=== PATIENT | female | born 1960 | race African-American/Black ===

== ENCOUNTER 2023-07-25 09:10 | Outpatient (AMB) | payer MEDICAID, SELFPAY ==
[2023-07-25 09:18] VITALS: BP 144/80; PULSE 59; RESP 12; TEMP 36.4; O2SAT 99; BMI 27.3
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
[2023-07-25 10:09] VITALS: BP 170/90
== END 2023-07-25 10:25 | disposition home or self-care (01) ==
PROVIDERS: Visit Provider Nurse Practitioner Family
DX: E11.9 Type 2 diabetes mellitus without complications (principal)
CPT/HCPCS: 83036; 99204

== ENCOUNTER 2023-07-25 10:26 | Outpatient (REF) | payer MEDICAID, SELFPAY ==
[2023-07-25 14:17] LABS: MANUAL DIFF FLAG NO
[2023-07-25 14:19] LABS: Basophils Percent Auto 0.6 % (0-2); Eosinophils Absolute Auto 0.1 X10*3/uL (0.0-0.4); Eosinophils Percent Auto 2.9 % (0-4); Hemoglobin 12.4 g/dl (12.0-16.0); Imm Gran Abs Auto 0.01 X10*3/uL (0.00-0.03); Imm Gran Pct Auto 0.2 % (0.0-0.4); Lymphocytes Percent Auto 41.9 % (20-40); Mean Corpuscular Volume 96.9 fL (80.0-98.0); Mean Platelet Volume 10.7 fL (9.4-12.3); Monocytes Absolute Auto 0.5 X10*3/uL (0.1-1.2); Monocytes Percent Auto 10.4 % (2-11); Neutrophils Absolute Auto 2.1 x10*3/uL (2.0-8.3); Platelet Count 258 X10*3/uL (160-400); Red Blood Count 4.13 X10*6/uL (4.20-5.50); Red Cell Distribution Width 12.7 % (11.0-16.0); White Blood Count 4.8 X10*3/uL (4.8-10.8)
[2023-07-25 14:37] LABS: Appearance Urine Clear; Color Urine Yellow; Glucose Urine UA Negative (Negative); Leukocyte Esterase Urine Trace (Negative); Nitrite Urine Negative (Negative); Specific Gravity - Urine 1.015 (1.005-1.025); UMIC TRIGGER UACC YES; Urine Blood Negative (Negative); Urine Ketones Negative (Negative); Urine Protein Negative (Neg-Trace)
[2023-07-25 14:40] LABS: Bacteria Urine None Seen (None Seen); Hyaline Casts Urine 0-2 /LPF (0-2); RBC Urine 0-2 /HPF (0-2); Squamous Epithelial Cell Urine 0-2 /HPF (0-2); WBC Urine 0-5 /HPF (0-5)
[2023-07-25 14:44] LABS: Alanine Aminotransferase 13 U/L (0-31); Albumin Level 4.3 g/dL (3.5-5.0); Alkaline Phosphatase 67 U/L (39-117); Anion Gap 14 (12-20); Aspartate Amino Transferase 18 U/L (5-31); Bilirubin Total 0.5 mg/dL (0.0-1.0); Blood Urea Nitrogen 8 mg/dL (9-16); Calcium 9.7 mg/dL (8.4-10.2); Carbon Dioxide 25 mmol/L (22-29); Chloride 103 mmol/L (96-108); Cholesterol 207 mg/dL (<200); Estimated Glomerular Filt Rate > 60; Glucose Fasting 103 mg/dL (60-99); HDL Cholesterol 50 mg/dL (>40); LDL Cholesterol Calculated 140 mg/dL (<100); Potassium 4.1 mmol/L (3.3-5.1); Sodium 138 mmol/L (135-145); Total Protein 7.7 g/dL (6.5-8.0); Triglycerides 85 mg/dL (<150)
[2023-07-25 15:03] LABS: TSH reflex Free T4 1.52 uIU/mL (0.32-4.0)
== END 2023-07-25 10:27 | disposition home or self-care (01) ==
LOC: HO.WFDLDS 10:26
PROVIDERS: Visit Provider Nurse Practitioner Family
DX: Z00.00 Encounter for general adult medical examination without abnormal findings (principal)
CPT/HCPCS: 36415; 80053; 80061; 81001; 84443; 85025

== ENCOUNTER 2023-08-08 09:47 | Outpatient (AMB) | payer MEDICAID, SELFPAY ==
[2023-08-08 09:50] VITALS: BP 136/78; PULSE 77; TEMP 37; O2SAT 97; BMI 27.3
--- NOTE | 2023-08-08 09:50 | MHC.PC.OV ---
Vital Signs 08/08/23 09:50 08/08/23 10:31 Height 5 ft 3 in Weight 154 lb BMI 27.3 BP 136/78 128/82 Blood Pressure Location Lt brachial Lt brachial Position Sitting Respiration 18 Pulse 77 Pulse Source Pulse Oximeter Temp 98.6 F Temp Source Oral Pulse Oximetry (%) 97 Oxygen Delivery Method Room Air Intake Visit Reasons: f/u HTN Intake Note: Patient is here to follow up on hypertension. Allergies No Known Allergies Allergy (Verified 08/08/23 10:29) Medication List - Last Reconciled 08/08/23 by Kelsie Acuna CNP atorvastatin 20 mg PO BEDTIME 30 days blood sugar diagnostic (Parallax EnterprisesStyle Test strips) As directed blood-glucose meter (Parallax EnterprisesStyle [place] Lite kit) As directed flash glucose scanning reader (Sonavationyle Loretta 2 [place]) As directed lancets (Parallax EnterprisesStyle Lancets) As directed lisinopril 10 mg PO DAILY 30 days metformin ER 750 mg PO ONCE 90 days Tobacco use date assessed: 07/25/23 Fall risk assessment: No Falls in past year Last assessed Fall Risk: 08/08/23 HPI HPI Comments History of Present Illness Details 63-year-old Creole speaking female, accompanied by her son, presents for hypertension follow-up. She established care on 07/25/2023. Her resting blood pressure was 170/90. Lisinopril was prescribed. Her A1c was 6.0. X-rays were ordered for reported chronic right-sided rib and hip pain. Routine labs were also ordered. She was advised to take lisinopril, metformin, and atorvastatin as prescribed. She has history of hyperlipidemia, diabetes, and hypertension. Atorvastatin was prescribed once her labs resulted. She has not gotten the x-rays done. She admits to taking her medications as prescribed with no adverse effects. She offers no complaints and denies acute symptoms. COUNTS INCLUDE 234 BEDS AT THE [facility] Medical History (Updated 07/25/23 @ 15:29 by Kelsie Acuna CNP) Diabetes 1.5, managed as type 2 Hypertension Diabetic coma Cataracts, bilateral Surgical History (Updated 07/25/23 @ 09:36 by Rosario Flores CMA) History of cataract surgery Family History (Updated 07/25/23 @ 09:34 by Rosario Flores CMA) Other No pertinent family history Social History (Updated 07/25/23 @ 09:37 by LUCÍA Rizvi Housing: House Alcohol intake: never Patient Tobacco Use Status: Never used Tobacco e-Cigarette/Vaping Use: Never Used service: No Current occupational status: retired Cognitive needs: No Hearing needs: No Vision needs: Yes Questionnaire Thrive Questionnaire Date Thrive assessed: 07/25/23 JASWINDER-7 AMB Questionnaire JASWINDER-7 Date JASWINDER - 7 assessed: 07/25/23 Source: Developed by Drs. Weston Goncalves, Frida Edmondson, Rajan Tolliver and colleagues, with an educational cassandra from [employer]. Review of Systems Const Details: Const Denies chills, Denies fatigue, Denies fever(s), Denies headache(s) and Denies weakness ENT Denies dizziness and Denies headache(s) Card Denies chest pain, Denies lightheadedness, Denies dyspnea and Denies other (Palpitations) Resp Denies cough, Denies dyspnea, Denies wheezing and Denies other ( shortness of breath) GI Denies abdominal pain, Denies melena, Denies hematochezia, Denies change in bowel habits, Denies dyspepsia and Denies nausea Denies hematuria and Denies dysuria Musc Denies abnormal gait, Denies myalgias, Denies arthralgias, Denies numbness and Denies tingling Skin/Breast Denies rash, Denies unusual bruising and Denies wounds Neuro Denies abnormal gait, Denies dizziness, Denies headache(s), Denies memory loss, Denies numbness, Denies Sensory deficit (Neuro), Denies tingling and Denies weakness Psych Denies anxiety, Denies depression, Denies memory loss Endo Denies cold intolerance, Denies fatigue, Denies heat intolerance, Denies polydipsia and Denies polyuria Aller/Immun Denies wheezing Physical exam (Primary Care) Vital Signs: Last Vital Signs Temp 98.6 F 08/08/23 09:50 Pulse 77 08/08/23 09:50 BP 136/78 08/08/23 09:50 Pulse Ox 97 08/08/23 09:50 Oxygen Delivery Method Room Air 08/08/23 09:50 BMI result Body Mass Index 27.3 Tobacco/Smoking Status: Tobacco use Status Tobacco use date assessed 07/25/23 08/08/23 09:54 Patient Tobacco Use Status Never used Tobacco 08/08/23 09:54 e-Cigarette/Vaping Use Never Used 08/08/23 09:54 Thrive Assessment: Date of Thrive Assessment Date Thrive assessed 07/25/23 08/08/23 09:54 Const Other: General: no acute distress and well developed Nutritional Appearance: well nourished Orientation/consciousness: patient oriented x3 HENMT Head: Yes normocephalic and Yes atraumatic Eyes General: appearance normal, both eyes and all related structures Pupils: Equal, round and reactive pupils present EOM: EOMs intact bilaterally Resp Effort & Inspection: normal respiratory effort Auscultation: clear to auscultation bilaterally Cardio Rate: regular rate Rhythm: regular rhythm Heart sounds: S1 normal heart sound present, S2 normal heart sound present, no gallops, no murmurs and no rubs GI Palpation (GI): No Abdominal aortic bruit present, Soft to palpation, nontender, No hepatosplenomegaly present and No Rebound tenderness present Auscultation: normal bowel sounds General: Yes no CVA tenderness Back/Spine/Pelvis Back: no CVA tenderness Cervical Spine: cervical ROM normal and No Cervical spine tenderness Thoracic/Lumbar Spine: thoraco-lumbar ROM normal, No pain with thoraco-lumbar ROM, No thoracic spinal tenderness and No lumbar spinal tenderness Extrem General: Yes normal to inspection, No edema and No calf tenderness Skin General: warm and dry. Normal skin color. Normal skin turgor Lesions: no lesions Rashes: no rashes Trauma: no lacerations or abrasions Wounds: no wounds Nails: normal Neuro General: patient oriented x3, gait normal and no focal neuro deficit Cranial nerves: Yes Equal, round and reactive pupils present Cognition (Neuro): normal cognition Gait exam (Neuro): Normal gait present Sensory Exam: No Sensory deficit (Neuro) Psych Appearance: grossly normal Affect: normal affect Attitude: cooperative Thought process: Normal thought process present Assessment and Plan Assessment & Plan (1) Hypertension: Code(s): I10 - Essential (primary) hypertension Qualifiers: Hypertension type: primary hypertension Qualified Code(s): I10 - Essential (primary) hypertension Plan: Resting blood pressure is 128/82, slightly above goal of less than 130/80 Continue with current treatment regimen Low-sodium diet encouraged Follow-up in 1 month or return sooner with symptoms or concerns Verbalized understanding and agreed with treatment plan. Interpretation by the patient's son per patient's preference. (2) Hypercholesterolemia: Code(s): E78.00 - Pure hypercholesterolemia, unspecified Plan: Recent lab results reviewed with the patient. Unremarkable findings except for slightly elevated total cholesterol and LDL. She was prescribed atorvastatin which she admits to taking as prescribed. Encouraged to continue to take medication as prescribed. Advised to perform repeat lipid level blood work before next visit. Follow-up in 1 month for complete physical exam. Verbalized understanding and agreed with treatment plan. Coding Level of Care Code Est Pt Level 3 (05398) Diagnoses Primary hypertension I10 Hypertension type: primary hypertension Hypercholesterolemia E78.00
[2023-08-08 10:31] VITALS: BP 128/82; RESP 18
== END 2023-08-08 10:38 | disposition home or self-care (01) ==
PROVIDERS: PCP Nurse Practitioner Family; Visit Provider Nurse Practitioner Family
DX: I10 Essential (primary) hypertension (principal); E78.00 Pure hypercholesterolemia, unspecified
CPT/HCPCS: 99213

== ENCOUNTER 2023-09-12 08:16 | Outpatient (AMB) | payer MEDICAID, SELFPAY ==
--- NOTE | 2023-09-12 08:27 | MHC.PC.OV ---
Vital Signs 09/12/23 08:28 09/12/23 09:03 Height 5 ft 3 in Weight 153 lb BMI 27.1 BP 164/90 H 170/90 H Blood Pressure Location Rt brachial Lt brachial Position Sitting Sitting Respiration 13 Pulse 86 Pulse Source Pulse Oximeter Pulse Oximetry (%) 98 Oxygen Delivery Method Room Air Intake Visit Reasons: 1 mos CPE, hypercholesterolemia Intake Note: Patient is here today for her CPE and a follow up for her hypercholesterolemia. Patient is accompanied by her son who reports patient needs a refill on her lancets and strips. Patient reports she didn't take her medications this morning. Patient's last A1C was 6.0 on 07/25/23. 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 Accompanied by: Son Allergies No Known Allergies Allergy (Verified 09/12/23 08:44) Medication List - Last Reconciled 09/12/23 by Kelsie Acuna CNP atorvastatin 20 mg PO BEDTIME 30 days blood sugar diagnostic (FreeStyle Test strips) As directed blood-glucose meter (FreeStyle [place] Lite kit) As directed lancets (FreeStyle Lancets) As directed lisinopril 10 mg PO DAILY 30 days metformin ER 750 mg PO ONCE 90 days Tobacco use date assessed: 07/25/23 Fall risk assessment: No Falls in past year Last assessed Fall Risk: 09/12/23 HPI HPI Comments History of Present Illness Details 63-year-old Creole speaking female, accompanied by her son, presents for an extended physical exam, hypertension, and hyperlipidemia follow-up She admits to taking her medications as prescribed. She has not taking her medications, including lisinopril today She has not gotten her repeat lipid panel blood work done She notes that she checks her BP once weekly, 140/80 yesterday, she does not recall previous readings She offers no complaints and denies acute symptoms at this time She notes that her last eye exam was 2years ago: cataract of both eyes. She has an eye exam scheduled with Dr. Cardozo in 11/2024; her son is working on getting a sooner appointment and will notify PCP if not possible She notes that her last mammogram 10 normal: normal She notes she has never had a colonoscopy done She is unsure of whether she has had a pap smear test She has never had a bone density scan She states that she was vaccinated for shingles but not for pneumonia She declines the flu vaccine today [facility] Medical History (Updated 09/12/23 @ 09:25 by Kelsie Acuna CNP) Diabetes 1.5, managed as type 2 Hypertension Diabetic coma Cataracts, bilateral Surgical History (Updated 07/25/23 @ 09:36 by Rosario Flores CMA) History of cataract surgery Family History (Updated 07/25/23 @ 09:34 by Rosario Flores CMA) Other No pertinent family history (Updated 07/25/23 @ 09:37 by Rosario Flores CMA) Housing: House Alcohol intake: never Patient Tobacco Use Status: Never used Tobacco e-Cigarette/Vaping Use: Never Used service: No Current occupational status: retired Cognitive needs: No Hearing needs: No Vision needs: Yes Questionnaire Thrive Questionnaire Date Thrive assessed: 07/25/23 JASWINDER-7 AMB Questionnaire JASWINDER-7 Date JASWINDER - 7 assessed: 07/25/23 Source: Developed by Drs. Weston Goncalves, Frida Edmondson, Rajan Tolliver and colleagues, with an educational cassandra from [employer]. Review of Systems Const Details: Denies chills, Denies fatigue, Denies fever(s), Denies headache(s) and Denies weakness HEENT Denies change in vision, Denies dizziness, Denies headache(s), Denies hearing loss, Denies nasal congestion, Denies sinus pain, Denies sinus pressure and Denies sore throat Card Denies chest pain, Denies lightheadedness, Denies dyspnea and Denies other (palpitations) Resp Denies cough, Denies dyspnea and Denies wheezing GI Denies abdominal pain, Denies melena, Denies hematochezia, Denies change in bowel habits, Denies dyspepsia and Denies nausea Denies hematuria and Denies dysuria Musc Denies abnormal gait, Denies myalgias, Denies arthralgias, Denies numbness and Denies tingling Skin/Breast Denies rash, Denies unusual bruising and Denies wounds Neuro Denies abnormal gait, Denies dizziness, Denies headache(s), Denies memory loss, Denies numbness, Denies Sensory deficit (Neuro), Denies tingling and Denies weakness Psych Denies anxiety, Denies depression and Denies memory loss Endo Denies cold intolerance, Denies fatigue, Denies heat intolerance, Denies polydipsia and Denies polyuria Jose M/Lymph Denies easy bleeding and Denies easy bruising Aller/Immun Denies wheezing Physical exam (Primary Care) Vital Signs: Last Vital Signs Pulse 86 09/12/23 08:28 Resp 13 09/12/23 08:28 BP 164/90 H 09/12/23 08:28 Pulse Ox 98 09/12/23 08:28 Oxygen Delivery Method Room Air 09/12/23 08:28 BMI result Body Mass Index 27.1 Tobacco/Smoking Status: Tobacco use Status Tobacco use date assessed 07/25/23 09/12/23 08:36 Patient Tobacco Use Status Never used Tobacco 09/12/23 08:36 e-Cigarette/Vaping Use Never Used 09/12/23 08:36 Thrive Assessment: Date of Thrive Assessment Date Thrive assessed 07/25/23 09/12/23 08:36 Const Other: General: no acute distress, well developed, alert and awake Nutritional Appearance: well nourished Orientation/consciousness: patient oriented x3 HENMT Head: Yes normocephalic and Yes atraumatic Ears: hearing grossly normal bilaterally and TM's normal bilaterally General nose exam: Normal external nose present and Normal nares present Mouth: Normal oral and palatal mucosa present and moist mucous membranes Teeth and gingiva: dentition normal Throat: Yes oropharynx normal Eyes Pupils: Equal, round and reactive pupils present and Pupil accommodation reflex normal EOM: EOMs intact bilaterally Neck Neck: Yes normal visual inspection, Yes no lymphadenopathy and Yes trachea midline Thyroid: Thyroid normal Carotids: no bruits Lymphatic: no lymphadenopathy noted Chest Chest palpation & inspection: normal inspection of the chest Resp Effort & Inspection: normal respiratory effort Auscultation: clear to auscultation bilaterally Cardio Rate: regular rate Rhythm: regular rhythm Heart sounds: S1 normal heart sound present, S2 normal heart sound present, no gallops, no murmurs and no rubs Bruits: no abdominal aortic bruits and no carotid bruits GI Palpation (GI): No Abdominal aortic bruit present, Soft to palpation, nontender, No hepatosplenomegaly present and No Rebound tenderness present Auscultation: normal bowel sounds General: Yes no CVA tenderness Back/Spine/Pelvis Back: no CVA tenderness Cervical Spine: cervical ROM normal and No Cervical spine tenderness Thoracic/Lumbar Spine: thoraco-lumbar ROM normal, No pain with thoraco-lumbar ROM, No thoracic spinal tenderness and No lumbar spinal tenderness Skin General: warm and dry. Normal skin color. Normal skin turgor Lesions: no lesions Rashes: no rashes Trauma: no lacerations or abrasions Wounds: no wounds Nails: normal Neuro General: patient oriented x3, gait normal and CN's II-XI intact bilaterally Cranial nerves: Yes Equal, round and reactive pupils present Cognition (Neuro): normal cognition Gait exam (Neuro): Normal gait present Motor exam (neuro): 5/5 motor strength present throughout Sensory Exam: No Sensory deficit (Neuro) Deep tendon reflexes (DTR's): Right patellar reflex intensity grade: 2+ and Left patellar reflex intensity grade: 2+ Extrem General: Yes normal to inspection, No edema and No calf tenderness Psych Appearance: grossly normal Affect: normal affect Attitude: cooperative Thought process: Normal thought process present Assessment and Plan Assessment & Plan (1) Normal physical examination, routine: Code(s): Z00.00 - Encounter for general adult medical examination without abnormal findings Plan: No significant physical restrictions or limitations noted She will follow-up in 1 week for nurse visit for blood pressure check and with PCP in 2 weeks for hypertension Return sooner with symptoms or concerns Verbalized understanding and agreed with treatment plan (2) Hypertension: Code(s): I10 - Essential (primary) hypertension Qualifiers: Hypertension type: primary hypertension Qualified Code(s): I10 - Essential (primary) hypertension Plan: Resting blood pressure is 170/90, above goal of less than 140/90 She checks her blood pressure weekly, 140/80 yesterday, she does not recall previous readings Lisinopril increased to 20 mg daily. Take as prescribed Low-sodium diet encouraged Follow-up in 1 week for nurse visit for blood pressure check and PCP in 2 weeks for hypertension Return with symptoms or concerns Verbalized understanding and agreed with treatment plan Interpretation by the patient's son per patient's preference (3) Hypercholesterolemia: Code(s): E78.00 - Pure hypercholesterolemia, unspecified Plan: She will get fasting lipid panel blood work done today Continue current treatment regimen Advised to limit foods high in saturated fat and avoid foods high trans fat Routine exercise encouraged Will review lab results and make changes as needed Verbalized understanding and agreed with treatment plan (4) Breast cancer screening by mammogram: Code(s): Z12.31 - Encounter for screening mammogram for malignant neoplasm of breast Plan: She notes that her last mammogram 10 normal: normal Mammogram ordered (5) Colon cancer screening: Code(s): Z12.11 - Encounter for screening for malignant neoplasm of colon Plan: She has never had a colonoscopy done Referred to [facility] [place] for a colonoscopy (6) Pap smear for cervical cancer screening: Code(s): Z12.4 - Encounter for screening for malignant neoplasm of cervix Plan: She is unsure of whether she has had a pap smear test 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 (7) Age-related osteoporosis without current pathological fracture: Code(s): M81.0 - Age-related osteoporosis without current pathological fracture Plan: She has never had a bone density scan DEXA scan ordered (8) Vaccine counseling: Code(s): Z71.85 - Encounter for immunization safety counseling Plan: She is not vaccinated for pneumonia and has not had the flu vaccine this season Instructed on the importance of vaccination and encouraged to get vaccinated for pneumonia and flu Verbalized understanding and agreed with treatment plan Orders: Orders XR DEXA axial skeleton Today M81.0 - Age-related osteoporosis without current pathological fracture MM screening mammo BI Today Z12.31 - Encounter for screening mammogram for malignant neoplasm of breast 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 Referral Z12.4 - Encounter for screening for malignant neoplasm of cervix Gastroenterology Referral Z12.11 - Encounter for screening for malignant neoplasm of colon Medications: New blood sugar diagnostic (FreeStyle Test strips) As directed 100 ea 4RF E11.9 - Type 2 diabetes mellitus without complications lancets (FreeStyle Lancets) As directed 100 ea 4RF E11.9 - Type 2 diabetes mellitus without complications lisinopril 20 mg PO DAILY 30 days 30 tabs 3RF Discontinued lisinopril Discontinued Reason: Doctor's Order 10 mg PO DAILY 30 days 30 tabs 3RF Coding Level of Care Code Est Pt Prev Care >65y(59076) Diagnoses Normal physical examination, routine Z00.00 Primary hypertension I10 Hypertension type: primary hypertension Hypercholesterolemia E78.00 Breast cancer screening by mammogram Z12.31 Colon cancer screening Z12.11 Pap smear for cervical cancer screening Z12.4 Age-related osteoporosis without current pathological fracture M81.0 Vaccine counseling Z71.85
[2023-09-12 08:28] VITALS: BP 164/90; PULSE 86; RESP 13; O2SAT 98; BMI 27.1
[2023-09-12 09:03] VITALS: BP 170/90
== END 2023-09-12 09:21 | disposition home or self-care (01) ==
PROVIDERS: PCP Nurse Practitioner Family; Visit Provider Nurse Practitioner Family
DX: Z00.00 Encounter for general adult medical examination without abnormal findings (principal); I10 Essential (primary) hypertension; E78.00 Pure hypercholesterolemia, unspecified; Z12.31 Encounter for screening mammogram for malignant neoplasm of breast; Z12.11 Encounter for screening for malignant neoplasm of colon; Z12.4 Encounter for screening for malignant neoplasm of cervix; M81.0 Age-related osteoporosis without current pathological fracture; Z71.85 Encounter for immunization safety counseling
CPT/HCPCS: 99397

== ENCOUNTER 2023-09-12 09:28 | Outpatient (REF) | payer MEDICAID, SELFPAY ==
[2023-09-12 12:01] LABS: Appearance Urine Clear; Color Urine Yellow; Glucose Urine UA Negative (Negative); Leukocyte Esterase Urine Negative (Negative); Nitrite Urine Negative (Negative); Urine Blood Negative (Negative); Urine Ketones Negative (Negative); Urine Protein Negative (Neg-Trace)
[2023-09-12 12:46] LABS: Cholesterol 133 mg/dL (<200); HDL Cholesterol 40 mg/dL (>40); LDL Cholesterol Calculated 82 mg/dL (<100); Triglycerides 58 mg/dL (<150)
== END 2023-09-12 09:29 | disposition home or self-care (01) ==
LOC: HO.WFDLDS 09:28
PROVIDERS: Visit Provider Nurse Practitioner Family
DX: Z00.00 Encounter for general adult medical examination without abnormal findings (principal); E78.00 Pure hypercholesterolemia, unspecified
CPT/HCPCS: 36415; 80061; 81003

== ENCOUNTER 2023-09-26 10:33 | Outpatient (AMB) | payer MEDICAID, SELFPAY ==
[2023-09-26 10:42] VITALS: BP 144/84; PULSE 68; RESP 13; TEMP 36.3; O2SAT 99; BMI 27.9
--- NOTE | 2023-09-26 10:42 | MHC.PC.OV ---
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 Machine Operator Name: Son Accompanied by: Son Allergies No Known Allergies Allergy (Verified 09/26/23 10:52) Medication List - Last Reconciled 09/26/23 by Kelsie Acuna CNP atorvastatin 20 mg PO BEDTIME 30 days blood sugar diagnostic (FreeStyle Test strips) As directed blood-glucose meter (FreeStyle [place] Lite kit) As directed lancets (FreeStyle Lancets) As directed lisinopril 20 mg PO DAILY 30 days metformin ER 750 mg PO ONCE 90 days Tobacco use date assessed: 07/25/23 Fall risk assessment: No Falls in past year Last assessed Fall Risk: 09/26/23 Dental Screening Dental Screen Date: 09/26/23 Did you have a dental visit in the last 12 months?: Yes Did you have a dental problem in the last 6 months where you did not have access to dental care?: No Was dental information given to patient?: Patient has dentist HPI HPI Comments History of Present Illness Details 63-year-old Creole speaking female, accompanied by her son, presents for hypertension follow-up Lisinopril was increased to 20 mg at her last office visit. She had a nurse visit a week ago and her BP was 138/70. Her initial BP today is 144/84 She admits to taking her medications as prescribed without adverse reactions Her son notes that her systolic BP is usually between 140 and 150 She offers no complaints and denies acute symptoms at this time [facility] Medical History Diabetes 1.5, managed as type 2 Hypertension Diabetic coma Cataracts, bilateral Surgical History History of cataract surgery Family History Other No pertinent family history Social History Housing: House Alcohol intake: never Patient Tobacco Use Status: Never used Tobacco e-Cigarette/Vaping Use: Never Used service: No Current occupational status: retired Cognitive needs: No Hearing needs: No Vision needs: Yes Questionnaire Thrive Questionnaire Date Thrive assessed: 07/25/23 JASWINDER-7 AMB Questionnaire JASWINDER-7 Date JASWINDER - 7 assessed: 07/25/23 Source: Developed by Drs. Weston Goncalves, Frida Edmondson, Rajan Tolliver and colleagues, with an educational cassandra from [employer]. Review of Systems Const Details: Const Denies chills, Denies fatigue, Denies fever(s), Denies headache(s) and Denies weakness ENT Denies dizziness and Denies headache(s) Card Denies chest pain, Denies lightheadedness, Denies dyspnea and Denies other (Palpitations) Resp Denies cough, Denies dyspnea, Denies wheezing and Denies other ( shortness of breath) GI Denies abdominal pain, Denies melena, Denies hematochezia, Denies change in bowel habits, Denies dyspepsia and Denies nausea Denies hematuria and Denies dysuria Musc Denies abnormal gait, Denies myalgias, Denies arthralgias, Denies numbness and Denies tingling Skin/Breast Denies rash, Denies unusual bruising and Denies wounds Neuro Denies abnormal gait, Denies dizziness, Denies headache(s), Denies memory loss, Denies numbness, Denies Sensory deficit (Neuro), Denies tingling and Denies weakness Psych Denies anxiety, Denies depression, Denies memory loss Endo Denies cold intolerance, Denies fatigue, Denies heat intolerance, Denies polydipsia and Denies polyuria Aller/Immun Denies wheezing Physical exam (Primary Care) Vital Signs: Last Vital Signs Temp 97.4 F 09/26/23 10:42 Pulse 68 09/26/23 10:42 Resp 13 09/26/23 10:42 BP 144/84 H 09/26/23 10:42 Pulse Ox 99 09/26/23 10:42 Oxygen Delivery Method Room Air 09/26/23 10:42 BMI result Body Mass Index 27.9 Tobacco/Smoking Status: Tobacco use Status Tobacco use date assessed 07/25/23 09/26/23 10:47 Patient Tobacco Use Status Never used Tobacco 09/26/23 10:47 e-Cigarette/Vaping Use Never Used 09/26/23 10:47 Thrive Assessment: Date of Thrive Assessment Date Thrive assessed 07/25/23 09/26/23 10:47 Const Other: General: no acute distress and well developed Nutritional Appearance: well nourished Orientation/consciousness: patient oriented x3 HENMT Head: Yes normocephalic and Yes atraumatic Eyes General: appearance normal, both eyes and all related structures Pupils: Equal, round and reactive pupils present EOM: EOMs intact bilaterally Resp Effort & Inspection: normal respiratory effort Auscultation: clear to auscultation bilaterally Cardio Rate: regular rate Rhythm: regular rhythm Heart sounds: S1 normal heart sound present, S2 normal heart sound present, no gallops, no murmurs and no rubs GI Palpation (GI): No Abdominal aortic bruit present, Soft to palpation, nontender, No hepatosplenomegaly present and No Rebound tenderness present Auscultation: normal bowel sounds General: Yes no CVA tenderness Back/Spine/Pelvis Back: no CVA tenderness Cervical Spine: cervical ROM normal and No Cervical spine tenderness Thoracic/Lumbar Spine: thoraco-lumbar ROM normal, No pain with thoraco-lumbar ROM, No thoracic spinal tenderness and No lumbar spinal tenderness Extrem General: Yes normal to inspection, No edema and No calf tenderness Skin General: warm and dry. Normal skin color. Normal skin turgor Neuro General: patient oriented x3, gait normal and no focal neuro deficit Cranial nerves: Yes Equal, round and reactive pupils present Cognition (Neuro): normal cognition Gait exam (Neuro): Normal gait present Sensory Exam: No Sensory deficit (Neuro) Psych Appearance: grossly normal Affect: normal affect Attitude: cooperative Thought process: Normal thought process present Assessment and Plan Assessment & Plan (1) Hypertension: Code(s): I10 - Essential (primary) hypertension Qualifiers: Hypertension type: primary hypertension Qualified Code(s): I10 - Essential (primary) hypertension Plan: Resting blood pressure is 140/80, above goal of less than 130/80 Will increase lisinopril to 30 mg daily. Take as prescribed Low-sodium diet encouraged Continue to monitor blood pressure at home, record readings, and bring to next appointment Follow-up in 1 month for hypertension and diabetes. Will check urine creatinine/microalbumin ratio and recheck lipid panel. Advised to fast for 10-12 hours and get blood work done before his next visit Return sooner with symptoms or concerns Verbalized understanding and agreed with treatment plan Interpretation by the patient's son per patient's preference Orders: Orders Lipid Panel 1 Month E11.9 - Type 2 diabetes mellitus without complications Microalbumin, Random (w Creat) 1 Month E11.9 - Type 2 diabetes mellitus without complications Medications: New lisinopril Take with lisinopril 20 mg to equal 30 mg daily 10 mg PO DAILY 30 days 30 tabs 3RF Coding Level of Care Code Est Pt Level 3 (23036) Diagnoses Primary hypertension I10 Hypertension type: primary hypertension
[2023-09-26 10:59] VITALS: BP 140/80
== END 2023-09-26 11:10 | disposition home or self-care (01) ==
PROVIDERS: PCP Nurse Practitioner Family; Visit Provider Nurse Practitioner Family
DX: I10 Essential (primary) hypertension (principal)
CPT/HCPCS: 99213

== ENCOUNTER 2023-11-07 10:36 | Outpatient (REF) | payer MEDICAID, SELFPAY ==
--- NOTE | ~2023-11-07 | MM_ITS ---
EXAMINATION: BONE DENSITOMETRY CLINICAL INDICATION: Age-related osteoporosis without current pathological fracture. COMPARISON: This is the patient's baseline examination. TECHNIQUE: Using a ffk environment DXA System (software version: 13.1) manufactured by [employer], dual-energy x-ray absorptiometry was performed of the lumbar spine and left hip. The images are of good technical quality. Summary results are attached. FINDINGS: LEFT FEMUR, NECK: BMD 0.810 g/cm2, Z-score -1.1, T-score -1.6, osteopenia. LEFT FEMUR, TOTAL: BMD 0.818 g/cm2, Z-score -1.3, T-score -1.5, osteopenia. AP SPINE L1-L4: BMD 0.879 g/cm2, Z-score -1.6, T-score -2.5, osteoporosis. IDENTIFIED RISK FACTORS: Menopause, secondary osteoporosis (type 1 diabetes). HISTORY OF FRACTURE: None listed. MEDICATIONS: None listed. MM/XR DEXA axial skeleton IMPRESSION: 1. DIAGNOSIS: Osteoporosis based on the lowest T-score value of -2.5 in the lumbar spine applying World Health Organization criteria. 2. 10-YEAR FRACTURE RISK PREDICTION, FRAX: According to the guidelines, FRAX calculation should only be performed on patients in the osteopenia bone density category. Therefore, FRAX was not performed on this patient. 3. Treatment Recommendations: NOF guidelines recommend consideration for treatment in postmenopausal women and men age 50 and older presenting with the following: -A hip or vertebral (clinical or morphometric) fracture. -T-score less than or equal to -2.5 at the femoral neck or spine after appropriate evaluation to exclude secondary causes. -Low bone mass at the hip or spine and a 10-year fracture probability by FRAX of greater than or equal to 3% for hip fracture or greater than or equal to 20% for major osteoporotic fracture based on the [place] adapted WHO algorithm. 4. Other Recommendations: All treatment decisions require clinical judgment and consideration of individual patient factors, including patient preferences, comorbidities, previous drug use, risk factors not captured in the FRAX model (e.g. frailty, falls, vitamin D deficiency, increased bone turnover, interval significant decline in bone density) and possible under or overestimation of fracture risk by FRAX. Additional medical evaluation for secondary cause of low bone mineral density may be appropriate. FUTURE SCAN RECOMMENDATION: People with diagnosed cases of osteoporosis or at high risk for fracture should have regular bone mineral density tests. For patients eligible for Medicare, routine testing is allowed once every 2 years. The testing frequency can be increased to one year for patients who have rapidly progressing disease, those who are receiving or discontinuing medical therapy to restore bone mass, or have additional risk factors.
--- NOTE | ~2023-11-07 | MM_ITS ---
EXAMINATION: MM SCREENING DIGITAL BREAST TOMOSYNTHESIS, BILATERAL CLINICAL INFORMATION: Screening. Asymptomatic. COMPARISON: Mammography: There are no prior mammograms for comparison. TECHNIQUE: Digital breast tomosynthesis is performed in both the craniocaudal and mediolateral oblique views along with computer-aided detection (CAD). Synthesized 2D images are generated from the tomosynthesis. FINDINGS: The breasts are almost entirely fatty (ACR BI-RADS breast composition Category a). There are no significant masses, abnormal calcifications, or other abnormalities. MM/MM tomosynthesis screening BI IMPRESSION: No mammographic evidence of malignancy. ASSESSMENT: BI-RADS BI-RADS 1 - Negative RECOMMENDATION: Routine annual mammography screening. 1 year F/U This examination should not preclude the clinical evaluation of a suspicious palpable abnormality. This patient's information was entered into a reminder system with a target due date for their next mammogram.
== END 2023-11-07 10:37 | disposition home or self-care (01) ==
LOC: HO.MAMMO 10:36
PROVIDERS: PCP Nurse Practitioner Family; Visit Provider Nurse Practitioner Family
DX: Z12.31 Encounter for screening mammogram for malignant neoplasm of breast (principal); Z13.820 Encounter for screening for osteoporosis; M81.0 Age-related osteoporosis without current pathological fracture; Z78.0 Asymptomatic menopausal state
CPT/HCPCS: 77063; 77067; 77080

== ENCOUNTER → 2023-11-07 11:00 | Outpatient (BNV) | payer MEDICAID, SELFPAY | PROVIDERS: PCP Nurse Practitioner Family; Visit Provider Radiology Diagnostic Radiology | DX: Z12.31 Encounter for screening mammogram for malignant neoplasm of breast (principal) | CPT/HCPCS: 77063; 77067 ==

== ENCOUNTER 2023-11-19 09:26 | Outpatient (AMB) | payer MEDICAID, SELFPAY ==
[2023-11-19 09:29] VITALS: BP 174/84; BMI 27.3
--- NOTE | 2023-11-19 09:29 | A.OFFVIS_ITS ---
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 Present (Wilda) Accompanied by: Daughter Allergies No Known Allergies Allergy (Verified 11/19/23 09:32) Medication List - Last Reconciled 11/19/23 by Alayna Duarte CNM atorvastatin 20 mg PO BEDTIME 30 days blood sugar diagnostic (FreeStyle Test strips) As directed blood-glucose meter (FreeStyle [place] Lite kit) As directed lancets (FreeStyle Lancets) As directed lisinopril 10 mg PO DAILY 30 days lisinopril 20 mg PO DAILY 30 days metformin ER 750 mg PO ONCE 90 days Is last menstrual period known: No Post menopausal: Yes Patient : No 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 The patient is accompanied by her [id number] who speaks Icelandic [place] Creole and the patient gave verbal consent to wanting to have the visit despite no official translation services. Patient is 63 years old she has hypertension and diabetes. She says she has not having any other health problems she says her blood pressure is normally better than it is this morning maybe she is nervous. On questioning she reported to myself and her daughter in law, that her blood sugar this morning was 300. That was before she took the metformin. Her daughter reports that she used to be on Lantus and she is not sure why she is not on it right now. Her cynkysil-dm-gug assured me that they are going to call their primary care office and arrange follow-up. Looking in chart I see she has an appointment with her primary care provider tomorrow. She says she feels fine. She walks on a treadmill in the home for exercise. She has not having any ob gyn concerns. She said she had 7 pregnancies and 5 term deliveries all natural in [facility]. Denies any problems with vaginal discharge or itching or odor and she got her last period when she was 46. [facility] Medical History Diabetes 1.5, managed as type 2 Hypertension Diabetic coma Cataracts, bilateral Surgical History History of cataract surgery Family History Other No pertinent family history Social History Housing: House Alcohol intake: never Patient Tobacco Use Status: Never used Tobacco e-Cigarette/Vaping Use: Never Used service: No Current occupational status: retired Cognitive needs: No Hearing needs: No Vision needs: Yes Female Reproductive History Menstrual Age of Menarche: 15 control method: none Total pregnancies: 7 Full term: 5 Number of Living Children: 5 Ab spontaneous: 2 Date of Mammogram: 11/07/23 Date of last Bone Density Screenin11/07/23 Physical Exam Vital Signs: Last Vital Signs BP 174/84 H 11/19/23 09:29 BMI result Body Mass Index 27.3 Const General: healthy appearing, comfortable, no acute distress, well developed and alert Nutritional Appearance: average body habitus Orientation/consciousness: patient oriented x3 Limitations: no limitations HEENT Head: Yes normocephalic Neck Neck: Yes normal visual inspection Chest Chest palpation & inspection: normal inspection of the chest Breast/axilla inspection: normal inspection of the breasts and normal inspection of the axillae Breast/axilla palpation: normal palpation of the breasts and normal palpation of the axillae Resp Effort & Inspection: normal respiratory effort GI Inspection: Yes normal to inspection, No Abdominal wall edema and No distended Palpation (GI): Soft to palpation and nontender Other: Normal external exam vagina pink and moist cervix multiparous pink smooth no lesions mild friability with Pap smear Cervix mobile nontender uterus not enlarged nontender adnexa not enlarged nontender fair tone with Kegel instructed on Kegel exercises verbally with demonstration. General: Yes bladder normal to palpation External Female Exam: normal external appearance and normal appearance of the urethra Speculum Exam - Vagina: normal appearance of the vagina, normal palpation and normal vaginal discharge Speculum Exam - Cervix: normal appearance of the cervix, normal palpation and nontender Bimanual exam- vagina & uterus: normal bimanual exam, normal palpation, uterine size normal, bladder normal to palpation, consistency normal, normal palpation, uterine mobility normal, uterine shape normal, No Cervical tenderness present, non-tender and no cervical motion tenderness Bimanual Exam- Adnexa, other: normal adnexae, no masses, normal and No adnexal tenderness Neuro General: patient oriented x3 Assessment & Plan Assessment & Plan (1) Pap smear for cervical cancer screening: Comment: Pap smear done 11/19/2023. If this is negative there will be no further Pap smears. Code(s): Z12.4 - Encounter for screening for malignant neoplasm of cervix (2) Type 2 diabetes mellitus: Comment: Reports blood sugar this morning of 300 before taking her metformin. Per computer there was a primary care follow-up appointment scheduled for tomorrow 11/20/2023. Code(s): E11.9 - Type 2 diabetes mellitus without complications Qualifiers: Diabetes mellitus regional intermodal truck driver insulin use: without regional intermodal truck driver use Diabetes mellitus complication status: without complication Qualified Code(s): E11.9 - Type 2 diabetes mellitus without complications (3) Hypertension: Code(s): I10 - Essential (primary) hypertension Qualifiers: Hypertension type: primary hypertension Qualified Code(s): I10 - Essential (primary) hypertension (4) Women's annual routine gynecological examination: Code(s): Z01.419 - Encounter for gynecological examination (general) (routine) without abnormal findings (5) Breast cancer screening: Code(s): Z12.39 - Encounter for other screening for malignant neoplasm of breast Plan Visit done for patient with translation of [id number] at their request with knowledge that standard recommend translation services. Patient reports she is up-to-date on her mammograms that she had a mammogram done recently. She has not having any ob gyn concerns if this Pap smear is normal she would not need any further Paps. Discussed the importance of the follow-up for the elevated blood sugars and elevated blood pressure. The daughter in-law expressed concern about both of these things per the computer there was a primary care appointment for tomorrow. [id number] expressed concern about her medications and states she used to be on insulin and she has not sure what happened with that. She said she will ensure that the patient is seen by her primary care provider tomorrow. I reviewed tightening pelvic floor muscles to prevent problems with holding urination or other functions. Also discussed common experiences with elevated blood sugars but she has not having any symptoms of yeast infection. We can see her in 1 year but no further Paps would be done. If any infection is revealed in the testing we will offer treatment as needed. Coding Level of Care Code New Pt Prev Care >65yr (89121) Diagnoses Pap smear for cervical cancer screening Z12.4 Type 2 diabetes mellitus without complication, without long-term current use of insulin E11.9 Diabetes mellitus halfway insulin use: without regional intermodal truck driver use Diabetes mellitus complication status: without complication Primary hypertension I10 Hypertension type: primary hypertension Women's annual routine gynecological examination Z01.419 Breast cancer screening Z12.39
== END 2023-11-19 10:43 | disposition home or self-care (01) ==
LOC: HO.HWSM 09:26
PROVIDERS: PCP Nurse Practitioner Family; Visit Provider Advanced Practice Midwife
DX: Z12.4 Encounter for screening for malignant neoplasm of cervix (principal); E11.9 Type 2 diabetes mellitus without complications; I10 Essential (primary) hypertension; Z01.419 Encounter for gynecological examination (general) (routine) without abnormal findings; Z12.39 Encounter for other screening for malignant neoplasm of breast
CPT/HCPCS: 99387

== ENCOUNTER 2023-11-19 09:26 | Outpatient (REF) | payer MEDICAID, SELFPAY ==
[2023-11-20 06:04] LABS: CT PCR NOT DETECTED (Not Detect.); NG PCR NOT DETECTED (Not Detect.)
[2023-11-20 12:30] LABS: BV Int Neg Control Negative (Negative); BV Int Pos Control Positive (Positive)
[2023-11-23 05:29] LABS: HPV mRNA E6/E7 rflx Not Detected (Not Detected)
== END 2023-11-19 09:27 | disposition home or self-care (01) ==
LOC: HO.LNP 09:26
PROVIDERS: PCP Nurse Practitioner Family; Visit Provider Advanced Practice Midwife
DX: Z01.419 Encounter for gynecological examination (general) (routine) without abnormal findings (principal); E11.9 Type 2 diabetes mellitus without complications; I10 Essential (primary) hypertension; Z79.84 Long term (current) use of oral hypoglycemic drugs; Z79.899 Other long term (current) drug therapy
CPT/HCPCS: 0353U; 87480; 87510; 87624; 87660; 88142; 99387

== ENCOUNTER 2023-11-20 16:07 | Outpatient (AMB) | payer MEDICAID, SELFPAY ==
--- NOTE | 2023-11-20 16:13 | A.OFFPC_ITS ---
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 Auditor Required: No Accompanied by: Son Allergies No Known Allergies Allergy (Verified 11/20/23 16:31) Medication List - Last Reconciled 11/20/23 by Kelsie Acuna CNP atorvastatin 20 mg PO BEDTIME 30 days blood sugar diagnostic (FreeStyle Test strips) As directed blood-glucose meter (FreeStyle [place] Lite kit) As directed lancets (FreeStyle Lancets) As directed lisinopril 20 mg PO DAILY 30 days metformin ER 750 mg PO ONCE 90 days Tobacco use date assessed: 11/20/23 Fall risk assessment: No Falls in past year Last assessed Fall Risk: 11/20/23 Dental Screening Dental Screen Date: 11/20/23 Did you have a dental visit in the last 12 months?: Yes Did you have a dental problem in the last 6 months where you did not have access to dental care?: No Was dental information given to patient?: Patient has dentist HPI HPI Comments History of Present Illness Details 63-year-old female, accompanied by this son, presents for hypertension and diabetes follow-up She has been taking lisinopril 20 mg daily instead prescribed 30 mg daily His son notes that the patient has been consuming significant amount of energy malt beverage. She notes that she consumes the drink because her appetite is poor. She has been maintaining her usual diabetic diet She denies acute symptoms at this time [facility] Medical History Diabetes 1.5, managed as type 2 Hypertension Diabetic coma Cataracts, bilateral Surgical History History of cataract surgery Family History Other No pertinent family history Social History Housing: House Alcohol intake: never Patient Tobacco Use Status: Never used Tobacco e-Cigarette/Vaping Use: Never Used service: No Current occupational status: retired Cognitive needs: No Hearing needs: No Vision needs: Yes Female Reproductive History Menstrual Age of Menarche: 15 Questionnaire Thrive Questionnaire Date Thrive assessed: 07/25/23 JASWINDER-7 AMB Questionnaire JASWINDER-7 Date JASWINDER - 7 assessed: 07/25/23 Source: Developed by Drs. Weston Goncalves, Frida Edmondson, Rajan Tolliver and colleagues, with an educational cassandra from [employer]. Review of Systems Const Details: Const Denies chills, Denies fatigue, Denies fever(s), Denies headache(s) and Denies weakness ENT Denies dizziness and Denies headache(s) Card Denies chest pain, Denies lightheadedness, Denies dyspnea and Denies other (Palpitations) Resp Denies cough, Denies dyspnea, Denies wheezing and Denies other ( shortness of breath) GI Denies abdominal pain, Denies melena, Denies hematochezia, Denies change in bowel habits, Denies dyspepsia and Denies nausea Denies hematuria and Denies dysuria Musc Denies abnormal gait, Denies myalgias, Denies arthralgias, Denies numbness and Denies tingling Skin/Breast Denies rash, Denies unusual bruising and Denies wounds Neuro Denies abnormal gait, Denies dizziness, Denies headache(s), Denies memory loss, Denies numbness, Denies Sensory deficit (Neuro), Denies tingling and Denies weakness Psych Denies anxiety, Denies depression, Denies memory loss Endo Denies cold intolerance, Denies fatigue, Denies heat intolerance, Denies polydipsia and Denies polyuria Aller/Immun Denies wheezing Physical exam (Primary Care) Vital Signs: Last Vital Signs Temp 97.6 F 11/20/23 16:14 Pulse 71 11/20/23 16:14 Resp 13 11/20/23 16:14 BP 160/94 H 11/20/23 16:14 Pulse Ox 99 11/20/23 16:14 Oxygen Delivery Method Room Air 11/20/23 16:14 BMI result Body Mass Index 27.6 Tobacco/Smoking Status: Tobacco use Status Tobacco use date assessed 11/20/23 11/20/23 16:20 Patient Tobacco Use Status Never used Tobacco 11/20/23 16:18 e-Cigarette/Vaping Use Never Used 11/20/23 16:18 Thrive Assessment: Date of Thrive Assessment Date Thrive assessed 07/25/23 11/20/23 16:18 Const Other: General: no acute distress and well developed Nutritional Appearance: well nourished Orientation/consciousness: patient oriented x3 HENMT Head: Yes normocephalic and Yes atraumatic Eyes General: appearance normal, both eyes and all related structures Pupils: Equal, round and reactive pupils present EOM: EOMs intact bilaterally Resp Effort & Inspection: normal respiratory effort Auscultation: clear to auscultation bilaterally Cardio Rate: regular rate Rhythm: regular rhythm Heart sounds: S1 normal heart sound present, S2 normal heart sound present, no gallops, no murmurs and no rubs GI Palpation (GI): No Abdominal aortic bruit present, Soft to palpation, nontender, No hepatosplenomegaly present and No Rebound tenderness present Auscultation: normal bowel sounds General: Yes no CVA tenderness Back/Spine/Pelvis Back: no CVA tenderness Cervical Spine: cervical ROM normal and No Cervical spine tenderness Thoracic/Lumbar Spine: thoraco-lumbar ROM normal, No pain with thoraco-lumbar ROM, No thoracic spinal tenderness and No lumbar spinal tenderness Extrem General: Yes normal to inspection, No edema and No calf tenderness Skin General: warm and dry. Normal skin color. Normal skin turgor Neuro General: patient oriented x3, gait normal and no focal neuro deficit Cranial nerves: Yes Equal, round and reactive pupils present Cognition (Neuro): normal cognition Gait exam (Neuro): Normal gait present Sensory Exam: No Sensory deficit (Neuro) Psych Appearance: grossly normal Affect: normal affect Attitude: cooperative Thought process: Normal thought process present Assessment and Plan Assessment & Plan (1) Type 2 diabetes mellitus: Code(s): E11.9 - Type 2 diabetes mellitus without complications Qualifiers: Diabetes mellitus complication status: without complication Diabetes mellitus ocean transportation intermediary insulin use: without ocean transportation intermediary use Qualified Code(s): E11.9 - Type 2 diabetes mellitus without complications Plan: A1c is 9.3%, above goal of less than 7.0%. Previous A1c was 6.0% Advised to stop drinking energy malt beverage Metformin increased to 750 mg twice daily. Take as prescribed Glucerna ordered. May drink 1 to 2 drinks daily ADA diet and routine exercise encouraged Advised to check fasting and random glucose daily, record readings, and bring to next appointment Follow-up in 1 month or return sooner with symptoms or concerns Verbalized understanding and agreed with treatment plan (2) Hypertension: Code(s): I10 - Essential (primary) hypertension Qualifiers: Hypertension type: primary hypertension Qualified Code(s): I10 - Essential (primary) hypertension Plan: Resting blood pressure is 160/94, above goal of less than 130/80 Advised to take lisinopril 30 mg daily as prescribed Low-sodium diet encouraged Monitor blood pressure daily and report readings persistently above 140/80 Follow-up for nurse visit in 1 week Return in 1 month or sooner with symptoms or concerns Verbalized understanding and agreed with treatment plan Orders: Orders AMB Hemoglobin A1c Today E11.9 - Type 2 diabetes mellitus without complications Medications: New nut.tx.gluc.intol,lac-free,soy (Glucerna Therapeutic Nutrition oral liquid) 1-2 drinks daily 30 days 5,688 mL 2RF metformin ER 750 mg PO BID 30 days 60 tabs 3RF Changed From lisinopril 20 mg PO DAILY 30 days 30 tabs 3RF To lisinopril Take with Lisinopril 10mg to equal 30mg daily 20 mg PO DAILY 30 days 30 tabs 3RF Refilled lisinopril 10 mg PO DAILY 30 days 30 tabs 3RF Discontinued metformin ER Discontinued Reason: Doctor's Order 750 mg PO ONCE 90 days 90 tabs 1RF Coding Level of Care Code Est Pt Level 4 (31487) Diagnoses Type 2 diabetes mellitus without complication, without long-term current use of insulin E11.9 Diabetes mellitus complication status: without complication Diabetes mellitus ocean transportation intermediary insulin use: without ocean transportation intermediary use Primary hypertension I10 Hypertension type: primary hypertension
[2023-11-20 16:14] VITALS: BP 160/94; PULSE 71; RESP 13; TEMP 36.4; O2SAT 99; BMI 27.6
== END 2023-11-20 17:19 | disposition home or self-care (01) ==
PROVIDERS: PCP Nurse Practitioner Family; Visit Provider Nurse Practitioner Family
DX: E11.9 Type 2 diabetes mellitus without complications (principal)
CPT/HCPCS: 83036; 99214

== ENCOUNTER 2023-12-04 16:27 | Outpatient (AMB) | payer MEDICAID, SELFPAY ==
[2023-12-04 16:30] VITALS: BP 156/90; PULSE 69; RESP 13; TEMP 36.4; O2SAT 99; BMI 27.8
--- NOTE | 2023-12-04 16:30 | A.OFFPC_ITS ---
Vital Signs 12/04/23 16:30 Height 5 ft 3 in Weight 157 lb 2 oz BMI 27.8 BP 156/90 H Blood Pressure Location Rt brachial Position Sitting Respiration 13 Pulse 69 Pulse Source Pulse Oximeter Temp 97.5 F Temp Source Temporal Artery Scan Pulse Oximetry (%) 99 Oxygen Delivery Method Room Air Intake Visit Reasons: Elevated Glucose Community Support Worker Required: Yes Community Support Worker Name: Son Accompanied by: Family/Other Allergies No Known Allergies Allergy (Verified 11/28/23 12:03) Tobacco use date assessed: 11/20/23 Fall risk assessment: No Falls in past year Last assessed Fall Risk: 12/04/23 Dental Screening Dental Screen Date: 12/04/23 Did you have a dental visit in the last 12 months?: Yes Did you have a dental problem in the last 6 months where you did not have access to dental care?: No Was dental information given to patient?: Patient has dentist HPI HPI Comments History of Present Illness Details 63-year-old Creole speaking female, acco mpanied by son, presents for elevated home glucose reading According to her son, the patient's blood glucose have been elevated the past 2 weeks. He brought her blood glucose log Last week, her FBG and RBG averages above 300; this week, her FBG has are between 164-184 and RBG between 216 and 319 Her son notes that the patient does not eat regularly and when she eats, her BP is elevated the following morning. He notes that the patient was on Lantus which was discontinued by her former PCP in [place] 3 weeks before the patient established care at this office She offers no complaints and denies acutes symptoms Interpretation by the patient's son per patient's preference [facility] Medical History Diabetes 1.5, managed as type 2 Hypertension Diabetic coma Cataracts, bilateral Surgical History History of cataract surgery Family History Other No pertinent family history Social History Housing: House Alcohol intake: never Patient Tobacco Use Status: Never used Tobacco e-Cigarette/Vaping Use: Never Used service: No Current occupational status: retired Cognitive needs: No Hearing needs: No Vision needs: No Female Reproductive History Menstrual Age of Menarche: 15 Questionnaire Thrive Questionnaire Date Thrive assessed: 07/25/23 JASWINDER-7 AMB Questionnaire JASWINDER-7 Date JASWINDER - 7 assessed: 07/25/23 Source: Developed by Drs. Weston Goncalves, Frida Edmondson, Rajan Tolliver and colleagues, with an educational cassandra from [employer]. Review of Systems Const Details: Const Denies chills, Denies fatigue, Denies fever(s), Denies headache(s) and Denies weakness ENT Denies dizziness and Denies headache(s) Card Denies chest pain, Denies lightheadedness, Denies dyspnea and Denies other (Palpitations) Resp Denies cough, Denies dyspnea, Denies wheezing and Denies other ( shortness of breath) GI Denies abdominal pain, Denies melena, Denies hematochezia, Denies change in bowel habits, Denies dyspepsia and Denies nausea Denies hematuria and Denies dysuria Musc Denies abnormal gait, Denies myalgias, Denies arthralgias, Denies numbness and Denies tingling Skin/Breast Denies rash, Denies unusual bruising and Denies wounds Neuro Denies abnormal gait, Denies dizziness, Denies headache(s), Denies memory loss, Denies numbness, Denies Sensory deficit (Neuro), Denies tingling and Denies weakness Psych Denies anxiety, Denies depression, Denies memory loss Endo Denies cold intolerance, Denies fatigue, Denies heat intolerance, Denies polydipsia and Denies polyuria Aller/Immun Denies wheezing Physical exam (Primary Care) Vital Signs: Last Vital Signs Temp 97.5 F 12/04/23 16:30 Pulse 69 12/04/23 16:30 Resp 13 12/04/23 16:30 BP 156/90 H 12/04/23 16:30 Pulse Ox 99 12/04/23 16:30 Oxygen Delivery Method Room Air 12/04/23 16:30 BMI result Body Mass Index 27.8 Tobacco/Smoking Status: Tobacco use Status Tobacco use date assessed 11/20/23 12/04/23 16:30 Patient Tobacco Use Status Never used Tobacco 12/04/23 16:30 e-Cigarette/Vaping Use Never Used 12/04/23 16:30 Thrive Assessment: Date of Thrive Assessment Date Thrive assessed 07/25/23 12/04/23 16:30 Const Other: General: no acute distress and well developed Nutritional Appearance: well nourished Orientation/consciousness: patient oriented x3 HENMT Head: Yes normocephalic and Yes atraumatic Eyes General: appearance normal, both eyes and all related structures Pupils: Equal, round and reactive pupils present EOM: EOMs intact bilaterally Resp Effort & Inspection: normal respiratory effort Auscultation: clear to auscultation bilaterally Cardio Rate: regular rate Rhythm: regular rhythm Heart sounds: S1 normal heart sound present, S2 normal heart sound present, no gallops, no murmurs and no rubs GI Palpation (GI): No Abdominal aortic bruit present, Soft to palpation, nontender, No hepatosplenomegaly present and No Rebound tenderness present Auscultation: normal bowel sounds General: Yes no CVA tenderness Back/Spine/Pelvis Back: no CVA tenderness Cervical Spine: cervical ROM normal and No Cervical spine tenderness Thoracic/Lumbar Spine: thoraco-lumbar ROM normal, No pain with thoraco-lumbar ROM, No thoracic spinal tenderness and No lumbar spinal tenderness Extrem General: Yes normal to inspection, No edema and No calf tenderness Skin General: warm and dry. Normal skin color. Normal skin turgor Neuro General: patient oriented x3, gait normal and no focal neuro deficit Cranial nerves: Yes Equal, round and reactive pupils present Cognition (Neuro): normal cognition Gait exam (Neuro): Normal gait present Sensory Exam: No Sensory deficit (Neuro) Psych Appearance: grossly normal Affect: normal affect Attitude: cooperative Thought process: Normal thought process present Assessment and Plan Assessment & Plan (1) Type 2 diabetes mellitus: Code(s): E11.9 - Type 2 diabetes mellitus without complications Qualifiers: Diabetes mellitus complication status: without complication Diabetes mellitus intermediate insulin use: without intermediate use Qualified Code(s): E11.9 - Type 2 diabetes mellitus without complications Plan: Elevated home blood glucose readings and poor eating habits Lantus ordered. Take as prescribed Continue to take metformin as prescribed ADA diet and routine exercise encouraged Advised to check blood glucose daily, record readings, and bring to next appointment Follow-up in 1 month or return sooner with symptoms or concerns Verbalized understanding and agreed with treatment plan (2) Hypertension: Code(s): I10 - Essential (primary) hypertension Qualifiers: Hypertension type: primary hypertension Qualified Code(s): I10 - Essential (primary) hypertension Plan: Blood pressure 156/90, above goal of less than 130/80 Will increase lisinopril to 40 mg daily. Take as prescribed Low-sodium diet encouraged Follow-up in 1 week for nurse visit for blood pressure check Return in 1 month or sooner with symptoms or concerns Verbalized understanding and agreed with treatment plan Medications: New lisinopril 40 mg PO DAILY 30 days 30 tabs 3RF insulin glargine (Lantus Solostar U-100 Insulin) 10 units (0.1 mL) subcut QPM 30 days 3 mL 2RF Discontinued lisinopril Take with Lisinopril 10mg to equal 30mg daily Discontinued Reason: Doctor's Order 20 mg PO DAILY 30 days 30 tabs 3RF lisinopril Discontinued Reason: Doctor's Order 10 mg PO DAILY 30 days 30 tabs 3RF Coding Level of Care Code Est Pt Level 4 (24314) Diagnoses Type 2 diabetes mellitus without complication, without long-term current use of insulin E11.9 Diabetes mellitus complication status: without complication Diabetes mellitus intermediate insulin use: without intermediate use Primary hypertension I10 Hypertension type: primary hypertension
== END 2023-12-04 17:54 | disposition home or self-care (01) ==
PROVIDERS: PCP Nurse Practitioner Family; Visit Provider Nurse Practitioner Family
DX: E11.9 Type 2 diabetes mellitus without complications (principal); I10 Essential (primary) hypertension
CPT/HCPCS: 99214

== ENCOUNTER 2023-12-25 16:20 | Outpatient (AMB) | payer MEDICAID, SELFPAY ==
[2023-12-25 16:24] VITALS: BP 148/84; PULSE 69; RESP 13; TEMP 36.4; O2SAT 99; BMI 27.0
--- NOTE | 2023-12-25 16:24 | A.OFFPC_ITS ---
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 Required: No Accompanied by: Son Allergies No Known Allergies Allergy (Verified 12/25/23 16:46) Medication List - Last Reconciled 12/25/23 by Kelsie Acuna CNP atorvastatin 20 mg PO BEDTIME 30 days blood sugar diagnostic (FreeStyle Test strips) As directed blood-glucose meter (FreeStyle [place] Lite kit) As directed insulin glargine (Lantus Solostar U-100 Insulin) 10 units (0.1 mL) subcut QPM 30 days lancets (FreeStyle Lancets) As directed lisinopril 40 mg PO DAILY 90 days metformin ER 750 mg PO BID 30 days nut.tx.gluc.intol,lac-free,soy (Glucerna Therapeutic Nutrition oral liquid) 1-2 drinks daily 30 days Tobacco use date assessed: 11/20/23 Fall risk assessment: No Falls in past year Last assessed Fall Risk: 12/25/23 Dental Screening Dental Screen Date: 12/25/23 Did you have a dental visit in the last 12 months?: Yes Did you have a dental problem in the last 6 months where you did not have access to dental care?: No Was dental information given to patient?: Patient has dentist HPI HPI Comments History of Present Illness Details 63-year-old Creole speaking female, acco mpanied by son, presents for diabetes follow-up Her last A1c was on 11/20/2023; 9.3% She was evaluated later last month for elevated blood glucose readings and hypertension. Lisinopril was increased to 40 mg daily and Lantus 10 units every night was prescribed She admits to taking her medications as prescribed without adverse reactions According to his son, the patient's blood glucose readings have improved since she started taking Lantus. Her random glucose has been below 200 and her fasting glucose have been between 114 and 164 Her son notes that the patient has been maintaining healthy diet and avoiding carbs She offers no complaints and denies acute symptoms at this time Interpretation by the patient's son per patient's preference [facility] Medical History Diabetes 1.5, managed as type 2 Hypertension Diabetic coma Cataracts, bilateral Surgical History History of cataract surgery Family History Other No pertinent family history Social History Housing: House Alcohol intake: never Patient Tobacco Use Status: Never used Tobacco e-Cigarette/Vaping Use: Never Used service: No Current occupational status: retired Cognitive needs: No Hearing needs: No Vision needs: No Female Reproductive History Menstrual Age of Menarche: 15 Questionnaire Thrive Questionnaire Date Thrive assessed: 07/25/23 JASWINDER-7 AMB Questionnaire JASWINDER-7 Date JASWINDER - 7 assessed: 07/25/23 Source: Developed by Drs. Weston Goncalves, Frida Edmondson, Rajan Tolliver and colleagues, with an educational cassandra from [employer]. Review of Systems Const Details: Const Denies chills, Denies fatigue, Denies fever(s), Denies headache(s) and Denies weakness ENT Denies dizziness and Denies headache(s) Card Denies chest pain, Denies lightheadedness, Denies dyspnea and Denies other (Palpitations) Resp Denies cough, Denies dyspnea, Denies wheezing and Denies other ( shortness of breath) GI Denies abdominal pain, Denies melena, Denies hematochezia, Denies change in bowel habits, Denies dyspepsia and Denies nausea Denies hematuria and Denies dysuria Musc Denies abnormal gait, Denies myalgias, Denies arthralgias, Denies numbness and Denies tingling Skin/Breast Denies rash, Denies unusual bruising and Denies wounds Neuro Denies abnormal gait, Denies dizziness, Denies headache(s), Denies memory loss, Denies numbness, Denies Sensory deficit (Neuro), Denies tingling and Denies weakness Psych Denies anxiety, Denies depression, Denies memory loss Endo Denies cold intolerance, Denies fatigue, Denies heat intolerance, Denies polydipsia and Denies polyuria Aller/Immun Denies wheezing Physical exam (Primary Care) Vital Signs: Last Vital Signs Temp 97.5 F 12/25/23 16:24 Pulse 69 12/25/23 16:24 Resp 13 12/25/23 16:24 BP 120/80 12/25/23 16:50 Pulse Ox 99 12/25/23 16:24 Oxygen Delivery Method Room Air 12/25/23 16:24 BMI result Body Mass Index 27.0 Tobacco/Smoking Status: Tobacco use Status Tobacco use date assessed 11/20/23 12/25/23 16:31 Patient Tobacco Use Status Never used Tobacco 12/25/23 16:31 e-Cigarette/Vaping Use Never Used 12/25/23 16:31 Thrive Assessment: Date of Thrive Assessment Date Thrive assessed 07/25/23 12/25/23 16:31 Const Other: General: no acute distress and well developed Nutritional Appearance: well nourished Orientation/consciousness: patient oriented x3 HENMT Head: Yes normocephalic and Yes atraumatic Eyes General: appearance normal, both eyes and all related structures Pupils: Equal, round and reactive pupils present EOM: EOMs intact bilaterally Resp Effort & Inspection: normal respiratory effort Auscultation: clear to auscultation bilaterally Cardio Rate: regular rate Rhythm: regular rhythm Heart sounds: S1 normal heart sound present, S2 normal heart sound present, no gallops, no murmurs and no rubs GI Palpation (GI): No Abdominal aortic bruit present, Soft to palpation, nontender, No hepatosplenomegaly present and No Rebound tenderness present Auscultation: normal bowel sounds General: Yes no CVA tenderness Back/Spine/Pelvis Back: no CVA tenderness Cervical Spine: cervical ROM normal and No Cervical spine tenderness Thoracic/Lumbar Spine: thoraco-lumbar ROM normal, No pain with thoraco-lumbar ROM, No thoracic spinal tenderness and No lumbar spinal tenderness Extrem General: Yes normal to inspection, No edema and No calf tenderness Skin General: warm and dry. Normal skin color. Normal skin turgor Neuro General: patient oriented x3, gait normal and no focal neuro deficit Cranial nerves: Yes Equal, round and reactive pupils present Cognition (Neuro): normal cognition Gait exam (Neuro): Normal gait present Sensory Exam: No Sensory deficit (Neuro) Psych Appearance: grossly normal Affect: normal affect Attitude: cooperative Thought process: Normal thought process present Assessment and Plan Assessment & Plan (1) Hypertension: Code(s): I10 - Essential (primary) hypertension Qualifiers: Hypertension type: primary hypertension Qualified Code(s): I10 - Essential (primary) hypertension Plan: Resting blood pressure is 120/80, slightly above goal of less than 130/80 Continue current treatment regimen Low-sodium diet encouraged Follow-up in 2 months or return sooner with symptoms or concerns Verbalized understanding and agreed with treatment plan (2) Type 2 diabetes mellitus: Code(s): E11.9 - Type 2 diabetes mellitus without complications Qualifiers: Diabetes mellitus long term acute care registered nurse insulin use: without longterm use Diabetes mellitus complication status: without complication Qualified Code(s): E11.9 - Type 2 diabetes mellitus without complications Plan: Her blood glucose reportedly improving since Lantus was added to her treatment regimen Continue current treatment regimen ADA diet and routine exercise encouraged Will recheck A1c in 2 months Follow-up in 2 months Verbalized understanding and agreed with treatment plan Medications: New pen needle, diabetic (BD Ultra-Fine Micro Pen Needle) As directed 100 ea 0RF Refilled nut.tx.gluc.intol,lac-free,soy (Glucerna Therapeutic Nutrition oral liquid) 1-2 drinks daily 5,688 mL 4RF 30 days Coding Level of Care Code Est Pt Level 3 (73416) Diagnoses Primary hypertension I10 Hypertension type: primary hypertension Type 2 diabetes mellitus without complication, without long-term current use of insulin E11.9 Diabetes mellitus long term acute care registered nurse insulin use: without longterm use Diabetes mellitus complication status: without complication
[2023-12-25 16:50] VITALS: BP 120/80
== END 2023-12-25 17:20 | disposition home or self-care (01) ==
PROVIDERS: PCP Nurse Practitioner Family; Visit Provider Nurse Practitioner Family
DX: I10 Essential (primary) hypertension (principal); E11.9 Type 2 diabetes mellitus without complications
CPT/HCPCS: 99213

== ENCOUNTER 2024-02-19 16:06 | Outpatient (AMB) | payer MEDICAID, SELFPAY ==
[2024-02-19 16:18] VITALS: BP 124/66; PULSE 59; RESP 11; O2SAT 99; BMI 26.4
--- NOTE | 2024-02-19 16:18 | A.OFFPC_ITS ---
Vital Signs 02/19/24 16:18 02/19/24 16:38 Height 5 ft 3 in Weight 149 lb 2 oz BMI 26.4 BP 124/66 Blood Pressure Location Lt brachial Position Sitting Respiration 11 L 18 Pulse 59 Pulse Source Pulse Oximeter Pulse Oximetry (%) 99 Oxygen Delivery Method Room Air Intake Visit Reasons: f/u HTN & Diabetes Intake Note: Patient reports she has R knee pain x15 days and has not tried OTC or home therapies for relief. Dental Office Coordinator Required: No Dental Office Coordinator Name: Patient is accompanied by son Allergies No Known Allergies Allergy (Verified 02/19/24 16:28) Medication List - Last Reconciled 02/19/24 by Kelsie Acuna CNP atorvastatin 20 mg PO BEDTIME 30 days blood sugar diagnostic (FreeStyle Test strips) As directed blood-glucose meter (FreeStyle [place] Lite kit) As directed insulin glargine (Lantus Solostar U-100 Insulin) 10 units (0.1 mL) subcut QPM 30 days lancets (FreeStyle Lancets) As directed lisinopril 40 mg PO DAILY 90 days metformin ER 750 mg PO BID 30 days nut.tx.gluc.intol,lac-free,soy (Glucerna Therapeutic Nutrition oral liquid) 1-2 drinks daily 30 days pen needle, diabetic (BD Ultra-Fine Micro Pen Needle) POC testing three times daily Tobacco use date assessed: 11/20/23 Fall risk assessment: No Falls in past year Last assessed Fall Risk: 02/19/24 Dental Screening Dental Screen Date: 12/25/23 HPI HPI Comments History of Present Illness Details 63-year-old Creole speaking female, acco mpanied by son, presents for hypertension and diabetes follow-up. She admits to taking her medications as prescribed without adverse reactions. She admits to making healthy dietary choices and walking daily. She reports right knee pain which has been ongoing for the past 15 days. The pain is worst with lying down or sleep and improves with walking. She describes the pain as burning and cramping. No fall, injury, or trauma. She has no been taking any medication for her symptoms. Interpretation by the patient's son per patient's preference. [facility] Medical History Diabetes 1.5, managed as type 2 Hypertension Diabetic coma Cataracts, bilateral Surgical History History of cataract surgery Family History Other No pertinent family history Social History Housing: House Alcohol intake: never Patient Tobacco Use Status: Never used Tobacco e-Cigarette/Vaping Use: Never Used service: No Current occupational status: retired Cognitive needs: No Hearing needs: No Vision needs: No Female Reproductive History Menstrual Age of Menarche: 15 Questionnaire PHQ-9 Over the last 2 weeks, how often have you been bothered by any of the following problems? 1. Little interest or pleasure in doing things: not at all 2. Feeling down, depressed, or hopeless: not at all 3. Trouble falling or staying asleep, or sleeping too much: not at all 4. Feeling tired or having little energy: not at all 5. Poor appetite or overeating: not at all 6. Feeling bad about yourself - or that you are a failure or have let yourself or your family down: not at all 7. Trouble concentrating on things, such as reading the newspaper or watching television: not at all 8. Moving or speaking so slowly that other people could have noticed. Or the opposite - being so fidgety or restless that you have been moving around a lot more than usual: not at all 9. Thoughts that you would be better off or of hurting yourself in some way: not at all Total score: 0 Depression Screening Interpretation: Negative Depression Screening Done: Yes 19312 - PHQ-9 Billing: Yes Source: Developed by Drs. Weston Goncalves, Frida Edmondson, Rajan Tolliver and colleagues, with an educational cassandra from [employer]. Thrive Questionnaire Date Thrive assessed: 02/19/24 I am a: Patient What is your living situation today?: I have a steady place to live Within the past 12 months, did the food you bought not last and you didn't have the money to get more?: Never true Within the past 12 months, did you worry whether your food would run out before you got money to buy more?: Never true Do you have trouble paying for medicines?: No Do you have trouble getting transportation to medical appointments?: No Do you have trouble paying your heating and electricity bill?: No Do you have trouble taking care of your child, family member or friend?: No Do you have trouble with day-to-day activities such as bathing, preparing meals, shopping, managing finances, etc.?: No Are you currently unemployed and looking for a job?: No Are you interested in more education?: No Please select the resources that you would like help with: None Currently or been in a relationship where the following occur: no concerns reported THRIVE Score: 0 AUDIT C Alcohol Use Questionnaire (AUDIT-C) 1. How often do you have a drink containing alcohol?: Never 3. How often do you have six or more drinks on one occasion?: Never Total Score: 0 JASWINDER-7 AMB Questionnaire JASWINDER-7 Date JASWINDER - 7 assessed: 02/19/24 Feeling nervous, anxious, or on edge: 0 = Not at all Not being able to stop or control worryin = Not at all Worrying too much about different things: 0 = Not at all Trouble relaxin = Not at all Being so restless that it is hard to sit still: 0 = Not at all Becoming easily annoyed or irritable: 0 = Not at all Feeling afraid as if something awful might happen: 0 = Not at all Total JASWINDER-7 score (0-4 normal; 5-9 mild; 10-14 moderate; 15-21 severe): 0 Source: Developed by Drs. Weston Goncalves, Frida Edmondson, Rajan Tolliver and colleagues, with an educational cassandra from [employer]. JASWINDER-7 Assessment Billing JASWINDER-7 Assessment Tool: JASWINDER-7 Assessment 75075 Review of Systems Const Details: Const Denies chills, Denies fatigue, Denies fever(s), Denies headache(s) and Denies weakness ENT Denies dizziness and Denies headache(s) Card Denies chest pain, Denies lightheadedness, Denies dyspnea and Denies other (Palpitations) Resp Denies cough, Denies dyspnea, Denies wheezing and Denies other ( shortness of breath) GI Denies abdominal pain, Denies melena, Denies hematochezia, Denies change in bowel habits, Denies dyspepsia and Denies nausea Denies hematuria and Denies dysuria Musc Reports as per HPI Skin/Breast Denies rash, Denies unusual bruising and Denies wounds Neuro Denies abnormal gait, Denies dizziness, Denies headache(s), Denies memory loss, Denies numbness, Denies Sensory deficit (Neuro), Denies tingling and Denies weakness Psych Denies anxiety, Denies depression, Denies memory loss Endo Denies cold intolerance, Denies fatigue, Denies heat intolerance, Denies polydipsia and Denies polyuria Aller/Immun Denies wheezing Physical exam (Primary Care) Vital Signs: Last Vital Signs Pulse 59 02/19/24 16:18 Resp 18 02/19/24 16:38 BP 124/66 02/19/24 16:18 Pulse Ox 99 02/19/24 16:18 Oxygen Delivery Method Room Air 02/19/24 16:18 BMI result Body Mass Index 26.4 Tobacco/Smoking Status: Tobacco use Status Tobacco use date assessed 11/20/23 02/19/24 16:21 Patient Tobacco Use Status Never used Tobacco 02/19/24 16:21 e-Cigarette/Vaping Use Never Used 02/19/24 16:21 PHQ-9: PHQ-9 Score PHQ-9: Total score 0 02/19/24 16:35 Depression Screening Interpretation: Negative Thrive Assessment: Date of Thrive Assessment Date Thrive assessed 02/19/24 02/19/24 16:21 Currently or been in a relationship where the following occur: no concerns reported Const Other: General: no acute distress and well developed Nutritional Appearance: well nourished Orientation/consciousness: patient oriented x3 HENMT Head: Yes normocephalic and Yes atraumatic Eyes General: appearance normal, both eyes and all related structures Pupils: Equal, round and reactive pupils present EOM: EOMs intact bilaterally Resp Effort & Inspection: normal respiratory effort Auscultation: clear to auscultation bilaterally Cardio Rate: regular rate Rhythm: regular rhythm Heart sounds: S1 normal heart sound present, S2 normal heart sound present, no gallops, no murmurs and no rubs GI Palpation (GI): No Abdominal aortic bruit present, Soft to palpation, nontender, No hepatosplenomegaly present and No Rebound tenderness present Auscultation: normal bowel sounds General: Yes no CVA tenderness Back/Spine/Pelvis Back: no CVA tenderness Cervical Spine: cervical ROM normal and No Cervical spine tenderness Thoracic/Lumbar Spine: thoraco-lumbar ROM normal, No pain with thoraco-lumbar ROM, No thoracic spinal tenderness and No lumbar spinal tenderness Extrem General: Yes normal to inspection, No edema and No calf tenderness Normal ROM of the right knee, no erythema, edema, or overt trauma/injury Skin General: warm and dry. Normal skin color. Normal skin turgor Neuro General: patient oriented x3, gait normal and no focal neuro deficit Cranial nerves: Yes Equal, round and reactive pupils present Cognition (Neuro): normal cognition Gait exam (Neuro): Normal gait present Sensory Exam: No Sensory deficit (Neuro) Psych Appearance: grossly normal Affect: normal affect Attitude: cooperative Thought process: Normal thought process present Results AMB Hemoglobin A1c AMB Hemoglobin A1c 6.4 % Last Edit by Rosario Flores CMA on 02/19/24 16:25 Results Reviewed Results Reviewed: Laboratory Last Values Hgb A1c (Clinic) 6.4 % (4.0-6.0) H 02/19/24 16:22 Assessment and Plan Assessment & Plan (1) Hypertension: Code(s): I10 - Essential (primary) hypertension Qualifiers: Hypertension type: primary hypertension Qualified Code(s): I10 - Essential (primary) hypertension Plan: Blood pressure is 124/66, within goal of less than 130/80 Continue current treatment regimen Low-sodium diet encouraged Follow-up in 3 months or return sooner with symptoms or concerns Verbalized understanding and agreed with treatment plan (2) Type 2 diabetes mellitus: Code(s): E11.9 - Type 2 diabetes mellitus without complications Qualifiers: Diabetes mellitus terminologist insulin use: without terminologist use Diabetes mellitus complication status: without complication Qualified Code(s): E11.9 - Type 2 diabetes mellitus without complications Plan: A1c today 6.4%, within goal of less than 7.0%. Previous A1c was 9.3% Continue current treatment regimen ADA diet and routine exercise encouraged Advised to get microalbumin/creatinine ratio and fasting lipid panel blood work done before next visit Follow-up in 3 months Verbalized understanding and agreed with the treatment plan (3) Right knee pain: Code(s): M25.561 - Pain in right knee Plan: Burning/cramping right knee pain for the past 15 days. Worse while lying down or at night; improves with ambulation Normal ROM of the right knee, no erythema, edema, or overt trauma/injury Tylenol ordered. Advised to take as prescribed Stretching and Warm/cold compresses encouraged May apply muscle rub Follow-up with worsening or new symptoms Verbalized understanding and agreed with treatment plan Orders: Orders AMB Hemoglobin A1c Today E11.9 - Type 2 diabetes mellitus without complications Medications: New acetaminophen ER (Tylenol 8 Hour) 650 mg PO Q12H PRN 60 tabs 2RF pain Coding Level of Care Code Est Pt Level 4 (23025) Complex EM visit Add On G2211 Diagnoses Primary hypertension I10 Hypertension type: primary hypertension Type 2 diabetes mellitus without complication, without long-term current use of insulin E11.9 Diabetes mellitus terminologist insulin use: without terminologist use Diabetes mellitus complication status: without complication Right knee pain M25.561 Additional Codes JASWINDER-7 Assessment Billing - JASWINDER-7 Assessment Tool: JASWINDER-7 Assessment 84882 ([id number])
[2024-02-19 16:38] VITALS: RESP 18
== END 2024-02-19 16:39 | disposition home or self-care (01) ==
PROVIDERS: PCP Nurse Practitioner Family; Visit Provider Nurse Practitioner Family
DX: I10 Essential (primary) hypertension (principal); E11.9 Type 2 diabetes mellitus without complications; M25.561 Pain in right knee
CPT/HCPCS: 83036; 99214; G2211

== ENCOUNTER 2024-05-20 16:07 | Outpatient (AMB) | payer MEDICAID, SELFPAY ==
--- NOTE | 2024-05-20 16:10 | A.OFFPC_ITS ---
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 Accompanied by: Son Is last menstrual period known: No Post menopausal: No Patient : No Allergies No Known Allergies Allergy (Verified 05/20/24 16:24) Medication List - Last Reconciled 05/20/24 by Kelsie Acuna CNP acetaminophen ER (Tylenol 8 Hour) 650 mg PO Q12H PRN amoxicillin 500 mg PO TID atorvastatin 20 mg PO BEDTIME 30 days blood sugar diagnostic (FreeStyle Test strips) As directed blood-glucose meter (FreeStyle [place] Lite kit) As directed ibuprofen 800 mg PO Q6-8H PRN lancets (FreeStyle Lancets) As directed lisinopril 40 mg PO DAILY 90 days metformin ER 750 mg PO BID 30 days nut.tx.gluc.intol,lac-free,soy (Glucerna Therapeutic Nutrition oral liquid) 1-2 drinks daily 30 days pen needle, diabetic (BD Ultra-Fine Micro Pen Needle) POC testing three times daily Tobacco use date assessed: 05/20/24 Fall risk assessment: No Falls in past year Dental Screening Dental Screen Date: 05/20/24 Did you have a dental visit in the last 12 months?: Yes Did you have a dental problem in the last 6 months where you did not have access to dental care?: No Was dental information given to patient?: Patient has dentist HPI HPI Comments History of Present Illness Details 63-year-old Creole speaking female, acco mpanied by her son, presents for hypertension and diabetes follow-up. She admits to taking her medications as prescribed without adverse reactions. However, she stopped taking Lantus 10 units qhs mid March due to low blood glucose readings She admits to making healthy dietary choices and limiting salt. She walks sometimes. She plans to engage in more physical exercise with her stationary bicycle She admits to making healthy dietary choices and walking daily Interpretation by the patient's son per the patient's preference [facility] Medical History Diabetes 1.5, managed as type 2 Hypertension Diabetic coma Cataracts, bilateral Surgical History History of cataract surgery Family History Other No pertinent family history Social History Housing: House Alcohol intake: never Patient Tobacco Use Status: Never used Tobacco e-Cigarette/Vaping Use: Never Used service: No Current occupational status: retired Cognitive needs: No Hearing needs: No Vision needs: No Female Reproductive History Menstrual Age of Menarche: 15 Questionnaire PHQ-9 Over the last 2 weeks, how often have you been bothered by any of the following problems? 1. Little interest or pleasure in doing things: not at all 2. Feeling down, depressed, or hopeless: not at all 3. Trouble falling or staying asleep, or sleeping too much: not at all 4. Feeling tired or having little energy: not at all 5. Poor appetite or overeating: not at all 6. Feeling bad about yourself - or that you are a failure or have let yourself or your family down: not at all 7. Trouble concentrating on things, such as reading the newspaper or watching television: not at all 8. Moving or speaking so slowly that other people could have noticed. Or the opposite - being so fidgety or restless that you have been moving around a lot more than usual: not at all 9. Thoughts that you would be better off or of hurting yourself in some way: not at all Total score: 0 [id number] - PHQ-9 Billing: Yes Source: Developed by Drs. Weston Goncalves, Frida Edmondson, Rajan Tolliver and colleagues, with an educational cassandra from [employer]. Thrive Questionnaire Date Thrive assessed: 02/19/24 JASWINDER-7 AMB Questionnaire JASWINDER-7 Date JASWINDER - 7 assessed: 02/19/24 Source: Developed by Drs. Weston Goncalves, Frida Edmondson, Rajan Tolliver and colleagues, with an educational cassandra from [employer]. Review of Systems Const Details: Const Denies chills, Denies fatigue, Denies fever(s), Denies headache(s) and Denies weakness ENT Denies dizziness and Denies headache(s) Card Denies chest pain, Denies lightheadedness, Denies dyspnea and Denies other (Palpitations) Resp Denies cough, Denies dyspnea, Denies wheezing and Denies other ( shortness of breath) GI Denies abdominal pain, Denies melena, Denies hematochezia, Denies change in bowel habits, Denies dyspepsia and Denies nausea Denies hematuria and Denies dysuria Musc Denies abnormal gait, Denies myalgias, Denies arthralgias, Denies numbness and Denies tingling Skin/Breast Denies rash, Denies unusual bruising and Denies wounds Neuro Denies abnormal gait, Denies dizziness, Denies headache(s), Denies memory loss, Denies numbness, Denies Sensory deficit (Neuro), Denies tingling and Denies weakness Psych Denies anxiety, Denies depression, Denies memory loss Endo Denies cold intolerance, Denies fatigue, Denies heat intolerance, Denies polydipsia and Denies polyuria Aller/Immun Denies wheezing Physical exam (Primary Care) Tobacco/Smoking Status: Tobacco use Status Tobacco use date assessed 05/20/24 05/20/24 16:19 Patient Tobacco Use Status Never used Tobacco 05/20/24 16:12 e-Cigarette/Vaping Use Never Used 05/20/24 16:12 PHQ-9: PHQ-9 Score PHQ-9: Total score 0 05/20/24 16:19 Thrive Assessment: Date of Thrive Assessment Date Thrive assessed 02/19/24 05/20/24 16:12 Const Other: General: no acute distress and well developed Nutritional Appearance: well nourished Orientation/consciousness: patient oriented x3 HENMT Head: Yes normocephalic and Yes atraumatic Eyes General: appearance normal, both eyes and all related structures Pupils: Equal, round and reactive pupils present EOM: EOMs intact bilaterally Resp Effort & Inspection: normal respiratory effort Auscultation: clear to auscultation bilaterally Cardio Rate: regular rate Rhythm: regular rhythm Heart sounds: S1 normal heart sound present, S2 normal heart sound present, no gallops, no murmurs and no rubs GI Palpation (GI): No Abdominal aortic bruit present, Soft to palpation, nontender, No hepatosplenomegaly present and No Rebound tenderness present Auscultation: normal bowel sounds General: Yes no CVA tenderness Back/Spine/Pelvis Back: no CVA tenderness Cervical Spine: cervical ROM normal and No Cervical spine tenderness Thoracic/Lumbar Spine: thoraco-lumbar ROM normal, No pain with thoraco-lumbar ROM, No thoracic spinal tenderness and No lumbar spinal tenderness Extrem General: Yes normal to inspection, No edema and No calf tenderness Skin General: warm and dry. Normal skin color. Normal skin turgor Neuro General: patient oriented x3, gait normal and no focal neuro deficit Cranial nerves: Yes Equal, round and reactive pupils present Cognition (Neuro): normal cognition Gait exam (Neuro): Normal gait present Sensory Exam: No Sensory deficit (Neuro) Psych Appearance: grossly normal Affect: normal affect Attitude: cooperative Thought process: Normal thought process present Results AMB Hemoglobin A1c AMB Hemoglobin A1c 5.7 % Last Edit by Yaima Daniels on 05/20/24 16:28 Assessment and Plan Assessment & Plan (1) Hypertension: Code(s): I10 - Essential (primary) hypertension Qualifiers: Hypertension type: primary hypertension Qualified Code(s): I10 - Essential (primary) hypertension Plan: Resting blood pressure is 148/70, above goal of less than 130/80 Will start amlodipine 2.5 mg daily. Advised to take as prescribed. Instructed on the risks, benefits, and potential adverse reactions of the medication Continue to take lisinopril as prescribed Low-sodium diet encouraged Follow-up in 2 weeks or sooner with symptoms or concerns Verbalized understanding and agreed with the treatment plan (2) Type 2 diabetes mellitus: Code(s): E11.9 - Type 2 diabetes mellitus without complications Qualifiers: Diabetes mellitus buttermaker insulin use: without skilled nursing use Diabetes mellitus complication status: without complication Qualified Code(s): E11.9 - Type 2 diabetes mellitus without complications Plan: A1c today is 5.7%, within goal of less than 7.0%. Previous A1c was 6.4% Continue to take metformin ER 750 mg twice daily ADA diet and routine exercise encouraged Will recheck A1c in 3 months Verbalized understanding and agreed with the treatment plan Orders: Orders AMB Hemoglobin A1c Today Z13.9 - Encounter for screening, unspecified Medications: New amlodipine 2.5 mg PO DAILY 30 days 30 tabs 3RF Coding Level of Care Code Est Pt Level 4 (22884) Complex EM visit Add On G2211 Diagnoses Primary hypertension I10 Hypertension type: primary hypertension Type 2 diabetes mellitus without complication, without long-term current use of insulin E11.9 Diabetes mellitus buttermaker insulin use: without skilled nursing use Diabetes mellitus complication status: without complication
[2024-05-20 16:20] VITALS: BP 158/74; PULSE 57; RESP 16; TEMP 36.6; O2SAT 97; BMI 26.6
[2024-05-20 16:24] VITALS: BP 148/70; PULSE 64
== END 2024-05-20 16:44 | disposition home or self-care (01) ==
PROVIDERS: PCP Nurse Practitioner Family; Visit Provider Nurse Practitioner Family
DX: I10 Essential (primary) hypertension (principal); E11.9 Type 2 diabetes mellitus without complications; Z13.9 Encounter for screening, unspecified
CPT/HCPCS: 83036; 99214

== ENCOUNTER 2024-06-13 08:31 | Outpatient (AMB) | payer MEDICAID, SELFPAY ==
--- NOTE | 2024-06-13 08:37 | A.OFFPC_ITS ---
Intake Visit Reasons: 2 wks HTN Allergies No Known Allergies Allergy (Verified 05/20/24 16:24) Tobacco use date assessed: 05/20/24 Dental Screening Dental Screen Date: 05/20/24 [facility] Medical History Diabetes 1.5, managed as type 2 Hypertension Diabetic coma Cataracts, bilateral Surgical History History of cataract surgery Family History Other No pertinent family history Social History Housing: House Alcohol intake: never Patient Tobacco Use Status: Never used Tobacco e-Cigarette/Vaping Use: Never Used service: No Current occupational status: retired Cognitive needs: No Hearing needs: No Vision needs: No Female Reproductive History Menstrual Age of Menarche: 15 Questionnaire Thrive Questionnaire Date Thrive assessed: 02/19/24 JASWINDER-7 AMB Questionnaire JASWINDER-7 Date JASWINDER - 7 assessed: 02/19/24 Source: Developed by Drs. Weston Goncalves, Frida Edmondson, Rajan Tolliver and colleagues, with an educational cassandra from [facility]. Physical exam (Primary Care) Tobacco/Smoking Status: Tobacco use Status Tobacco use date assessed 05/20/24 05/20/24 16:19 Patient Tobacco Use Status Never used Tobacco 05/20/24 16:12 e-Cigarette/Vaping Use Never Used 05/20/24 16:12 Thrive Assessment: Date of Thrive Assessment Date Thrive assessed 02/19/24 05/20/24 16:12 Coding
--- NOTE | 2024-06-13 08:42 | A.OFFPC_ITS ---
Vital Signs 06/13/24 08:46 06/13/24 09:02 Height 5 ft 3 in Weight 148 lb BMI 26.2 BP 162/84 H 160/90 H Blood Pressure Location Lt brachial Lt brachial Position Sitting Sitting Respiration 16 Pulse 53 Pulse Source Pulse Oximeter Temp 97.8 F Temp Source Oral Pulse Oximetry (%) 97 Oxygen Delivery Method Room Air Intake Visit Reasons: 2 wks HTN Intake Note: patient here for 2 week follow up on HTN Down Filler Required: No Is last menstrual period known: No Post menopausal: No Patient : No Allergies No Known Allergies Allergy (Verified 06/13/24 08:59) Medication List - Last Reconciled 06/13/24 by Kelsie Acuna CNP acetaminophen ER (Tylenol 8 Hour) 650 mg PO Q12H PRN amlodipine 2.5 mg PO DAILY 30 days amoxicillin 500 mg PO TID atorvastatin 20 mg PO BEDTIME 30 days blood sugar diagnostic ([employer]Style Test strips) As directed blood-glucose meter (M[employer] BiomicsStyle [place] Lite kit) As directed ibuprofen 800 mg PO Q6-8H PRN lancets (FreeStyle Lancets) As directed lisinopril 40 mg PO DAILY 90 days metformin ER 750 mg PO BID 30 days nut.tx.gluc.intol,lac-free,soy (Glucerna Therapeutic Nutrition oral liquid) 1-2 drinks daily 30 days pen needle, diabetic (BD Ultra-Fine Micro Pen Needle) POC testing three times daily Tobacco use date assessed: 06/13/24 Fall risk assessment: No Falls in past year Last assessed Fall Risk: 06/13/24 Dental Screening Dental Screen Date: 05/20/24 HPI HPI Comments History of Present Illness Details 63-year-old Creole speaking female, acco mpanied by her [id number], presents for hypertension and diabetes follow-up She admits to taking her medications as prescribed without adverse reactions She also admits to making healthy dietary choices, including low-sodium diet She offers no complaints and denies acute symptoms at this time Interpretation by the patient's [id number] per patient's preference [facility] Medical History Diabetes 1.5, managed as type 2 Hypertension Diabetic coma Cataracts, bilateral Surgical History History of cataract surgery Family History Other No pertinent family history Social History Housing: House Alcohol intake: never Patient Tobacco Use Status: Never used Tobacco e-Cigarette/Vaping Use: Never Used Patient : No service: No Current occupational status: retired Cognitive needs: No Hearing needs: No Vision needs: No Female Reproductive History Menstrual Age of Menarche: 15 Questionnaire Thrive Questionnaire Date Thrive assessed: 02/19/24 JASWINDER-7 AMB Questionnaire JASWINDER-7 Date JASWINDER - 7 assessed: 02/19/24 Source: Developed by Drs. Weston Goncalves, Frida Edmondson, Rajan Tolliver and colleagues, with an educational cassandra from [employer]. Review of Systems Const Details: Const Denies chills, Denies fatigue, Denies fever(s), Denies headache(s) and Denies weakness ENT Denies dizziness and Denies headache(s) Card Denies chest pain, Denies lightheadedness, Denies dyspnea and Denies other (Palpitations) Resp Denies cough, Denies dyspnea, Denies wheezing and Denies other ( shortness of breath) GI Denies abdominal pain, Denies melena, Denies hematochezia, Denies change in bowel habits, Denies dyspepsia and Denies nausea Denies hematuria and Denies dysuria Musc Denies abnormal gait, Denies myalgias, Denies arthralgias, Denies numbness and Denies tingling Skin/Breast Denies rash, Denies unusual bruising and Denies wounds Neuro Denies abnormal gait, Denies dizziness, Denies headache(s), Denies memory loss, Denies numbness, Denies Sensory deficit (Neuro), Denies tingling and Denies weakness Psych Denies anxiety, Denies depression, Denies memory loss Endo Denies cold intolerance, Denies fatigue, Denies heat intolerance, Denies polydipsia and Denies polyuria Aller/Immun Denies wheezing Physical exam (Primary Care) Vital Signs: Last Vital Signs Temp 97.8 F 06/13/24 08:46 Pulse 53 06/13/24 08:46 Resp 16 06/13/24 08:46 BP 162/84 H 06/13/24 08:46 Pulse Ox 97 06/13/24 08:46 Oxygen Delivery Method Room Air 06/13/24 08:46 BMI result Body Mass Index 26.2 Tobacco/Smoking Status: Tobacco use Status Tobacco use date assessed 06/13/24 06/13/24 08:49 Patient Tobacco Use Status Never used Tobacco 06/13/24 08:49 e-Cigarette/Vaping Use Never Used 06/13/24 08:49 Thrive Assessment: Date of Thrive Assessment Date Thrive assessed 02/19/24 06/13/24 08:49 Const Other: General: no acute distress and well developed Nutritional Appearance: well nourished Orientation/consciousness: patient oriented x3 HENMT Head: Yes normocephalic and Yes atraumatic Eyes General: appearance normal, both eyes and all related structures Pupils: Equal, round and reactive pupils present EOM: EOMs intact bilaterally Resp Effort & Inspection: normal respiratory effort Auscultation: clear to auscultation bilaterally Cardio Rate: regular rate Rhythm: regular rhythm Heart sounds: S1 normal heart sound present, S2 normal heart sound present, no gallops, no murmurs and no rubs GI Palpation (GI): No Abdominal aortic bruit present, Soft to palpation, nontender, No hepatosplenomegaly present and No Rebound tenderness present Auscultation: normal bowel sounds General: Yes no CVA tenderness Back/Spine/Pelvis Back: no CVA tenderness Cervical Spine: cervical ROM normal and No Cervical spine tenderness Thoracic/Lumbar Spine: thoraco-lumbar ROM normal, No pain with thoraco-lumbar ROM, No thoracic spinal tenderness and No lumbar spinal tenderness Extrem General: Yes normal to inspection, No edema and No calf tenderness Skin General: warm and dry. Normal skin color. Normal skin turgor Neuro General: patient oriented x3, gait normal and no focal neuro deficit Cranial nerves: Yes Equal, round and reactive pupils present Cognition (Neuro): normal cognition Gait exam (Neuro): Normal gait present Sensory Exam: No Sensory deficit (Neuro) Psych Appearance: grossly normal Affect: normal affect Attitude: cooperative Thought process: Normal thought process present Assessment and Plan Assessment & Plan (1) Hypertension: Code(s): I10 - Essential (primary) hypertension Qualifiers: Hypertension type: primary hypertension Qualified Code(s): I10 - Essential (primary) hypertension Plan: Resting blood pressure is 160/90, above goal of less than 130/80 Will increase amlodipine to 5 mg daily. Advised to take as prescribed Continue to take lisinopril 40 mg daily Low-sodium diet encouraged Patient's [id number] advised to get a med discharge planner for the patient and monitor med compliance Follow-up for nurse visit for blood pressure check in 1 week and with PCP in 2 weeks Return sooner with symptoms or concerns Verbalized understanding and agreed with the treatment plan Medications: New amlodipine 5 mg PO DAILY 30 days 30 tabs 3RF Discontinued amlodipine Discontinued Reason: Doctor's Order 2.5 mg PO DAILY 30 days 30 tabs 3RF Coding Level of Care Code Est Pt Level 3 (04894) Diagnoses Primary hypertension I10 Hypertension type: primary hypertension
[2024-06-13 08:46] VITALS: BP 162/84; PULSE 53; RESP 16; TEMP 36.6; O2SAT 97; BMI 26.2
[2024-06-13 09:02] VITALS: BP 160/90
== END 2024-06-13 09:06 | disposition home or self-care (01) ==
LOC: HO.HMGFM 08:31
PROVIDERS: PCP Nurse Practitioner Family; Visit Provider Nurse Practitioner Family
DX: I10 Essential (primary) hypertension (principal)
CPT/HCPCS: 99213

== ENCOUNTER 2024-06-24 08:21 | Outpatient (AMB) | payer MEDICAID, SELFPAY ==
--- NOTE | 2024-06-24 08:34 | MHC.PC.OV ---
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 Amlodipine was increased to 5 mg daily 2 weeks ago She also admits to making healthy dietary choices, including low-sodium diet She offers no complaints and denies acute symptoms at this time Interpretation by the patient's [id number] per patient's preference [facility] Medical History Diabetes 1.5, managed as type 2 Hypertension Diabetic coma Cataracts, bilateral Surgical History History of cataract surgery Family History Other No pertinent family history Social History Housing: House Alcohol intake: never Patient Tobacco Use Status: Never used Tobacco e-Cigarette/Vaping Use: Never Used service: No Current occupational status: retired Cognitive needs: No Hearing needs: No Vision needs: No Female Reproductive History Menstrual Age of Menarche: 15 Questionnaire Thrive Questionnaire Date Thrive assessed: 02/19/24 JASWINDER-7 AMB Questionnaire JASWINDER-7 Date JASWINDER - 7 assessed: 02/19/24 Source: Developed by Drs. Weston Goncalves, Frida Edmondson, Rajan Tolliver and colleagues, with an educational cassandra from [employer]. Review of Systems Const Details: Const Denies chills, Denies fatigue, Denies fever(s), Denies headache(s) and Denies weakness ENT Denies dizziness and Denies headache(s) Card Denies chest pain, Denies lightheadedness, Denies dyspnea and Denies other (Palpitations) Resp Denies cough, Denies dyspnea, Denies wheezing and Denies other ( shortness of breath) GI Denies abdominal pain, Denies melena, Denies hematochezia, Denies change in bowel habits, Denies dyspepsia and Denies nausea Denies hematuria and Denies dysuria Musc Denies abnormal gait, Denies myalgias, Denies arthralgias, Denies numbness and Denies tingling Skin/Breast Denies rash, Denies unusual bruising and Denies wounds Neuro Denies abnormal gait, Denies dizziness, Denies headache(s), Denies memory loss, Denies numbness, Denies Sensory deficit (Neuro), Denies tingling and Denies weakness Psych Denies anxiety, Denies depression, Denies memory loss Endo Denies cold intolerance, Denies fatigue, Denies heat intolerance, Denies polydipsia and Denies polyuria Aller/Immun Denies wheezing Physical exam (Primary Care) Tobacco/Smoking Status: Tobacco use Status Tobacco use date assessed 06/13/24 06/13/24 08:49 Patient Tobacco Use Status Never used Tobacco 06/13/24 08:49 e-Cigarette/Vaping Use Never Used 06/13/24 08:49 Thrive Assessment: Date of Thrive Assessment Date Thrive assessed 02/19/24 06/13/24 08:49 Const Other: General: no acute distress and well developed Nutritional Appearance: well nourished Orientation/consciousness: patient oriented x3 HENMT Head: Yes normocephalic and Yes atraumatic Eyes General: appearance normal, both eyes and all related structures Pupils: Equal, round and reactive pupils present EOM: EOMs intact bilaterally Resp Effort & Inspection: normal respiratory effort Auscultation: clear to auscultation bilaterally Cardio Rate: regular rate Rhythm: regular rhythm Heart sounds: S1 normal heart sound present, S2 normal heart sound present, no gallops, no murmurs and no rubs GI Palpation (GI): No Abdominal aortic bruit present, Soft to palpation, nontender, No hepatosplenomegaly present and No Rebound tenderness present Auscultation: normal bowel sounds General: Yes no CVA tenderness Back/Spine/Pelvis Back: no CVA tenderness Cervical Spine: cervical ROM normal and No Cervical spine tenderness Thoracic/Lumbar Spine: thoraco-lumbar ROM normal, No pain with thoraco-lumbar ROM, No thoracic spinal tenderness and No lumbar spinal tenderness Extrem General: Yes normal to inspection, No edema and No calf tenderness Skin General: warm and dry. Normal skin color. Normal skin turgor Neuro General: patient oriented x3, gait normal and no focal neuro deficit Cranial nerves: Yes Equal, round and reactive pupils present Cognition (Neuro): normal cognition Gait exam (Neuro): Normal gait present Sensory Exam: No Sensory deficit (Neuro) Psych Appearance: grossly normal Affect: normal affect Attitude: cooperative Thought process: Normal thought process present Assessment and Plan Assessment & Plan (1) Hypertension: Code(s): I10 - Essential (primary) hypertension Qualifiers: Hypertension type: primary hypertension Qualified Code(s): I10 - Essential (primary) hypertension Plan: Blood pressure today is 150/90, above goal of less than 130/80 Will increase amlodipine to 10 mg daily; advised to take as prescribed; instructed on the risks, benefits, and potential adverse reactions Continue to take lisinopril 40 mg daily Low-sodium diet encouraged Follow-up in 1 month for hypertension and diabetes or return sooner with symptoms or concerns Verbalized understanding and agreed with the treatment plan Medications: New amlodipine 10 mg PO DAILY 30 days 30 tabs 3RF Refilled nut.tx.gluc.intol,lac-free,soy (Glucerna Therapeutic Nutrition oral liquid) 1-2 drinks daily 30 days 5,688 mL 4RF Discontinued amlodipine Discontinued Reason: Doctor's Order 5 mg PO DAILY 30 days 30 tabs 3RF Coding Level of Care Code Est Pt Level 4 (09049) Diagnoses Primary hypertension I10 Hypertension type: primary hypertension
[2024-06-24 08:39] VITALS: BP 150/90; PULSE 58; RESP 16; TEMP 36.7; O2SAT 99; BMI 26.3
== END 2024-06-24 08:55 | disposition home or self-care (01) ==
PROVIDERS: PCP Nurse Practitioner Family; Visit Provider Nurse Practitioner Family
DX: I10 Essential (primary) hypertension (principal)
CPT/HCPCS: 99214

== ENCOUNTER 2024-07-25 08:13 | Outpatient (AMB) | payer MEDICAID, SELFPAY ==
--- NOTE | 2024-07-25 08:20 | MHC.PC.OV ---
Vital Signs 07/25/24 08:31 07/25/24 08:47 Height 5 ft 3 in Weight 148 lb 4 oz BMI 26.3 BP 146/70 H 140/80 H Blood Pressure Location Rt brachial Rt brachial Position Sitting Sitting Respiration 16 Pulse 75 Pulse Source Pulse Oximeter Temp 97.4 F Temp Source Oral Pulse Oximetry (%) 97 Oxygen Delivery Method Room Air Intake Visit Reasons: 1 month fu htn Intake Note: patient here for 1 month follow up and HTN. 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 Language: Albanian Creole Is last menstrual period known: No Post menopausal: No Patient : No Allergies No Known Allergies Allergy (Verified 07/25/24 08:45) Medication List - Last Reviewed 07/25/24 by Yaima Daniels MA acetaminophen ER (Tylenol 8 Hour) 650 mg PO Q12H PRN amlodipine 10 mg PO DAILY 30 days atorvastatin 20 mg PO BEDTIME 30 days blood sugar diagnostic (FreeStyle Test strips) As directed blood-glucose meter (FreeStyle [place] Lite kit) As directed ibuprofen 800 mg PO Q6-8H PRN lancets (FreeStyle Lancets) As directed lisinopril 40 mg PO DAILY 90 days metformin ER 750 mg PO BID 30 days nut.tx.gluc.intol,lac-free,soy (Glucerna Therapeutic Nutrition oral liquid) 1-2 drinks daily 30 days pen needle, diabetic (BD Ultra-Fine Micro Pen Needle) POC testing three times daily Tobacco use date assessed: 07/25/24 Fall risk assessment: No Falls in past year Last assessed Fall Risk: 07/25/24 Dental Screening Dental Screen Date: 07/25/24 Did you have a dental visit in the last 12 months?: No Did you have a dental problem in the last 6 months where you did not have access to dental care?: No Was dental information given to patient?: No HPI HPI Comments History of Present Illness Details 64-year-old Creole speaking female, accompanied by her son, presents for hypertension follow-up She admits to taking her medications as prescribed without adverse reactions. She admits to taking her medications this morning She also admits to making healthy dietary choices, including low-sodium diet She offers no complaints and denies acute symptoms at this time Interpretation by the patient's son per patient's preference [facility] Medical History Diabetes 1.5, managed as type 2 Hypertension Diabetic coma Cataracts, bilateral Surgical History History of cataract surgery Family History Other No pertinent family history Social History Housing: House Alcohol intake: never Patient Tobacco Use Status: Never used Tobacco e-Cigarette/Vaping Use: Never Used service: No Current occupational status: retired Current occupational exposures/hazards: No Cognitive needs: No Hearing needs: No Vision needs: No Female Reproductive History Menstrual Age of Menarche: 15 Questionnaire Thrive Questionnaire Date Thrive assessed: 02/19/24 JASWINDER-7 AMB Questionnaire JASWINDER-7 Date JASWINDER - 7 assessed: 02/19/24 Source: Developed by Drs. Weston Goncalves, Frida Edmondson, Rajan Tolliver and colleagues, with an educational cassandra from [employer]. Review of Systems Const Details: Const Denies chills, Denies fatigue, Denies fever(s), Denies headache(s) and Denies weakness ENT Denies dizziness and Denies headache(s) Card Denies chest pain, Denies lightheadedness, Denies dyspnea and Denies other (Palpitations) Resp Denies cough, Denies dyspnea, Denies wheezing and Denies other ( shortness of breath) GI Denies abdominal pain, Denies melena, Denies hematochezia, Denies change in bowel habits, Denies dyspepsia and Denies nausea Denies hematuria and Denies dysuria Musc Denies abnormal gait, Denies myalgias, Denies arthralgias, Denies numbness and Denies tingling Skin/Breast Denies rash, Denies unusual bruising and Denies wounds Neuro Denies abnormal gait, Denies dizziness, Denies headache(s), Denies memory loss, Denies numbness, Denies Sensory deficit (Neuro), Denies tingling and Denies weakness Endo Denies cold intolerance, Denies fatigue, Denies heat intolerance, Denies polydipsia and Denies polyuria Aller/Immun Denies wheezing Physical exam (Primary Care) Tobacco/Smoking Status: Tobacco use Status Tobacco use date assessed 06/24/24 06/24/24 08:42 Patient Tobacco Use Status Never used Tobacco 06/24/24 08:42 e-Cigarette/Vaping Use Never Used 06/24/24 08:42 Thrive Assessment: Date of Thrive Assessment Date Thrive assessed 02/19/24 06/24/24 08:42 Const Other: General: no acute distress and well developed Nutritional Appearance: well nourished Orientation/consciousness: patient oriented x3 HENMT Head: Yes normocephalic and Yes atraumatic Eyes General: appearance normal, both eyes and all related structures Pupils: Equal, round and reactive pupils present EOM: EOMs intact bilaterally Resp Effort & Inspection: normal respiratory effort Auscultation: clear to auscultation bilaterally Cardio Rate: regular rate Rhythm: regular rhythm Heart sounds: S1 normal heart sound present, S2 normal heart sound present, no gallops, no murmurs and no rubs GI Palpation (GI): No Abdominal aortic bruit present, Soft to palpation, nontender, No hepatosplenomegaly present and No Rebound tenderness present Auscultation: normal bowel sounds General: Yes no CVA tenderness Back/Spine/Pelvis Back: no CVA tenderness Extrem General: Yes normal to inspection, No edema and No calf tenderness Skin General: warm and dry. Normal skin color. Normal skin turgor Neuro General: patient oriented x3, gait normal and no focal neuro deficit Cranial nerves: Yes Equal, round and reactive pupils present Cognition (Neuro): normal cognition Gait exam (Neuro): Normal gait present Sensory Exam: No Sensory deficit (Neuro) Psych Appearance: grossly normal Affect: normal affect Attitude: cooperative Thought process: Normal thought process present Coding Level of Care Code Est Pt Level 3 (98367) Diagnoses Primary hypertension I10 Hypertension type: primary hypertension Assessment & Plan Assessment & Plan (1) Hypertension: Code(s): I10 - Essential (primary) hypertension Category: Medical Qualifiers: Hypertension type: primary hypertension Qualified Code(s): I10 - Essential (primary) hypertension Plan: Resting blood pressure is 140/80, above goal of less than 130/80 Will start hydrochlorothiazide 25 mg every morning. Advised to take as prescribed. Instructed on the risks, benefits, and potential adverse reactions of the medications Continue to take amlodipine and lisinopril as prescribed Low-sodium diet encouraged Follow-up in 1 month or sooner with symptoms or concerns Verbalized understanding and agreed with the treatment plan Medications: New hydrochlorothiazide 12.5 mg PO QAM 30 days 30 tabs 2RF
[2024-07-25 08:31] VITALS: BP 146/70; PULSE 75; RESP 16; TEMP 36.3; O2SAT 97; BMI 26.3
[2024-07-25 08:47] VITALS: BP 140/80
== END 2024-07-25 08:56 | disposition home or self-care (01) ==
PROVIDERS: PCP Nurse Practitioner Family; Visit Provider Nurse Practitioner Family
DX: I10 Essential (primary) hypertension (principal)

== ENCOUNTER → 2024-07-25 08:13 | Outpatient (BNVA) | payer MEDICAID, SELFPAY | PROVIDERS: PCP Nurse Practitioner Family; Visit Provider Nurse Practitioner Family | DX: I10 Essential (primary) hypertension (principal) | CPT/HCPCS: 99212 ==

== ENCOUNTER 2024-08-28 09:29 | Outpatient (AMB) | payer MEDICAID, SELFPAY ==
--- NOTE | 2024-08-28 09:33 | MHC.PC.OV ---
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 Aeronautical Design Engineer Language: [place] Aeronautical Design Engineer Name: pt refused subscription clerk Accompanied by: Other Relationship Is last menstrual period known: No Post menopausal: No Patient : No Allergies No Known Allergies Allergy (Verified 08/28/24 09:39) Tobacco use date assessed: 08/28/24 Fall risk assessment: No Falls in past year Last assessed Fall Risk: 08/28/24 Dental Screening Dental Screen Date: 08/28/24 Did you have a dental visit in the last 12 months?: Yes Did you have a dental problem in the last 6 months where you did not have access to dental care?: No Was dental information given to patient?: Patient has dentist HPI HPI Comments History of Present Illness Details 64-year-old Creole speaking female, accompanied by [id number], presents for hypertension follow-up She admits to taking her medications as prescribed without adverse reactions. She admits to taking her medications this morning She also admits to making healthy dietary choices, including low-sodium diet. She has been walking routinely She denies acute symptoms at this time Her [id number] notes that the patient has not been taking atorvastatin for about 3 months She did not get lipid panel and urine microalbumin creatinine ratio lab work done before this visit as planned Interpretation by the patient's [id number] per patient's preference [facility] Medical History Diabetes 1.5, managed as type 2 Hypertension Diabetic coma Cataracts, bilateral Surgical History History of cataract surgery Family History Other No pertinent family history Social History Housing: House Alcohol intake: never Patient Tobacco Use Status: Never used Tobacco e-Cigarette/Vaping Use: Never Used Second Hand Smoke Exposure: No service: No Current occupational status: retired Current occupational exposures/hazards: No Cognitive needs: No Hearing needs: No Vision needs: No Female Reproductive History Menstrual Age of Menarche: 15 Questionnaire PHQ-9 Over the last 2 weeks, how often have you been bothered by any of the following problems? 1. Little interest or pleasure in doing things: not at all 2. Feeling down, depressed, or hopeless: not at all 3. Trouble falling or staying asleep, or sleeping too much: not at all 4. Feeling tired or having little energy: not at all 5. Poor appetite or overeating: not at all 6. Feeling bad about yourself - or that you are a failure or have let yourself or your family down: not at all 7. Trouble concentrating on things, such as reading the newspaper or watching television: not at all 8. Moving or speaking so slowly that other people could have noticed. Or the opposite - being so fidgety or restless that you have been moving around a lot more than usual: not at all 9. Thoughts that you would be better off or of hurting yourself in some way: not at all Total score: 0 Depression Screening Interpretation: Negative Depression Screening Done: Yes 10352 - PHQ-9 Billing: Yes Source: Developed by Drs. Weston Goncalves, Frida Edmondson, Rajan Tolliver and colleagues, with an educational cassandra from [employer]. Thrive Questionnaire Date Thrive assessed: 08/28/24 I am a: Patient What is your living situation today?: I have a steady place to live Within the past 12 months, did the food you bought not last and you didn't have the money to get more?: Never true Within the past 12 months, did you worry whether your food would run out before you got money to buy more?: Never true Do you have trouble paying for medicines?: No Do you have trouble getting transportation to medical appointments?: No Do you have trouble paying your heating and electricity bill?: No Do you have trouble taking care of your child, family member or friend?: No Do you have trouble with day-to-day activities such as bathing, preparing meals, shopping, managing finances, etc.?: No Are you currently unemployed and looking for a job?: No Are you interested in more education?: No Please select the resources that you would like help with: None Currently or been in a relationship where the following occur: No concerns reported THRIVE Score: 0 AUDIT C Alcohol Use Questionnaire (AUDIT-C) 1. How often do you have a drink containing alcohol?: Never Total Score: 0 JASWINDER-7 AMB Questionnaire JASWINDER-7 Date JASWINDER - 7 assessed: 08/28/24 Feeling nervous, anxious, or on edge: 0 = Not at all Not being able to stop or control worryin = Not at all Worrying too much about different things: 0 = Not at all Trouble relaxin = Not at all Being so restless that it is hard to sit still: 0 = Not at all Becoming easily annoyed or irritable: 0 = Not at all Feeling afraid as if something awful might happen: 0 = Not at all Total JASWINDER-7 score (0-4 normal; 5-9 mild; 10-14 moderate; 15-21 severe): 0 Source: Developed by Drs. Weston Goncalves, Frida Edmondson, Rajan Tolliver and colleagues, with an educational cassandra from [employer]. JASWINDER-7 Assessment Billing JASWINDER-7 Assessment Tool: JASWINDER-7 Assessment 59116 Review of Systems Const Details: Const Denies chills, Denies fatigue, Denies fever(s), Denies headache(s) and Denies weakness ENT Denies dizziness and Denies headache(s) Card Denies chest pain, Denies lightheadedness, Denies dyspnea and Denies other (Palpitations) Resp Denies cough, Denies dyspnea, Denies wheezing and Denies other ( shortness of breath) GI Denies abdominal pain, Denies melena, Denies hematochezia, Denies change in bowel habits, Denies dyspepsia and Denies nausea Denies hematuria and Denies dysuria Musc Denies abnormal gait, Denies myalgias, Denies arthralgias, Denies numbness and Denies tingling Skin/Breast Denies rash, Denies unusual bruising and Denies wounds Neuro Denies abnormal gait, Denies dizziness, Denies headache(s), Denies memory loss, Denies numbness, Denies Sensory deficit (Neuro), Denies tingling and Denies weakness Psych Denies anxiety, Denies depression, Denies memory loss Endo Denies cold intolerance, Denies fatigue, Denies heat intolerance, Denies polydipsia and Denies polyuria Aller/Immun Denies wheezing Physical exam (Primary Care) Vital Signs: Last Vital Signs Temp 98.1 F 08/28/24 09:41 Pulse 94 08/28/24 09:41 Resp 16 08/28/24 09:41 BP 118/74 08/28/24 09:41 Pulse Ox 97 08/28/24 09:41 Oxygen Delivery Method Room Air 08/28/24 09:41 BMI result Body Mass Index 26.1 Tobacco/Smoking Status: Tobacco use Status Tobacco use date assessed 08/28/24 08/28/24 09:44 Patient Tobacco Use Status Never used Tobacco 08/28/24 09:36 e-Cigarette/Vaping Use Never Used 08/28/24 09:36 PHQ-9: PHQ-9 Score PHQ-9: Total score 0 08/28/24 09:45 Depression Screening Interpretation: Negative Thrive Assessment: Date of Thrive Assessment Date Thrive assessed 08/28/24 08/28/24 09:45 Currently or been in a relationship where the following occur: No concerns reported Const Other: General: no acute distress and well developed Nutritional Appearance: well nourished Orientation/consciousness: patient oriented x3 HENMT Head: Yes normocephalic and Yes atraumatic Eyes General: appearance normal, both eyes and all related structures Pupils: Equal, round and reactive pupils present EOM: EOMs intact bilaterally Resp Effort & Inspection: normal respiratory effort Auscultation: clear to auscultation bilaterally Cardio Rate: regular rate Rhythm: regular rhythm Heart sounds: S1 normal heart sound present, S2 normal heart sound present, no gallops, no murmurs and no rubs GI Palpation (GI): No Abdominal aortic bruit present, Soft to palpation, nontender, No hepatosplenomegaly present and No Rebound tenderness present Auscultation: normal bowel sounds General: Yes no CVA tenderness Back/Spine/Pelvis Back: no CVA tenderness Extrem General: Yes normal to inspection, No edema and No calf tenderness Skin General: warm and dry. Normal skin color. Normal skin turgor Neuro General: patient oriented x3, gait normal and no focal neuro deficit Cranial nerves: Yes Equal, round and reactive pupils present Cognition (Neuro): normal cognition Gait exam (Neuro): Normal gait present Sensory Exam: No Sensory deficit (Neuro) Psych Appearance: grossly normal Affect: normal affect Attitude: cooperative Thought process: Normal thought process present Results AMB Hemoglobin A1c AMB Hemoglobin A1c 5.9 % Last Edit by Yaima Daniels MA on 08/28/24 10:24 Coding Level of Care Code Est Pt Level 4 (94818) Diagnoses Primary hypertension I10 Hypertension type: primary hypertension Type 2 diabetes mellitus without complication, without long-term current use of insulin E11.9 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: without long-term use Diabetes mellitus complication status: without complication Laboratory tests ordered as part of a complete physical exam (CPE) Z00.00 Additional Codes JASWINDER-7 Assessment Billing - JASWINDER-7 Assessment Tool: JASWINDER-7 Assessment 74895 ([id number]) PHQ-9 - 83663 - PHQ-9 Billing: Yes ([id number]) Assessment & Plan Assessment & Plan (1) Hypertension: Code(s): I10 - Essential (primary) hypertension Category: Medical Qualifiers: Hypertension type: primary hypertension Qualified Code(s): I10 - Essential (primary) hypertension Plan: Resting blood pressure is 118/74, within goal of less than 130/80 Continue current treatment regimen Low-sodium diet encouraged Advised to get lab work done before next visit Follow-up in 1 month for an extended physical exam and labs review or sooner with symptoms or concerns Verbalized understanding and agreed with the treatment plan (2) Type 2 diabetes mellitus: Code(s): E11.9 - Type 2 diabetes mellitus without complications Category: Medical Qualifiers: Diabetes mellitus long-term insulin use: without long-term use Diabetes mellitus complication status: without complication Qualified Code(s): E11.9 - Type 2 diabetes mellitus without complications Plan: A1c today is 5.9%, within goal of less than 7.0%. Previous A1c in April was 5.7% Continue current treatment regimen ADA diet and routine exercise encouraged She has not taking atorvastatin for about 3 months. Will restart atorvastatin 20 mg every night. Encouraged to take as prescribed. Instructed on the importance of taking her medications Will recheck A1c in 3 months Verbalized understanding and agreed with the treatment plan (3) Laboratory tests ordered as part of a complete physical exam (CPE): Code(s): Z00.00 - Encounter for general adult medical examination without abnormal findings Category: Medical Plan: Fasting labs ordered as part of a complete physical exam. Advised to fast for at least 10 hours before getting labs drawn. May drink water Verbalized understanding and agreed with treatment plan. Orders: Orders Complete Blood Count Auto Diff Today Z00.00 - Encounter for general adult medical examination without abnormal findings Comprehensive [place]. Panel Fast Today Z00.00 - Encounter for general adult medical examination without abnormal findings UA CC w/rflx Micro + Cult Today Z00.00 - Encounter for general adult medical examination without abnormal findings AMB Hemoglobin A1c Today Z13.9 - Encounter for screening, unspecified TSH reflex Free T4 Today Z00.00 - Encounter for general adult medical examination without abnormal findings Medications: Refilled atorvastatin 20 mg PO BEDTIME 30 days 30 tabs 3RF nut.tx.gluc.intol,lac-free,soy (Glucerna Therapeutic Nutrition oral liquid) 1-2 drinks daily 30 days 5,688 mL 4RF
[2024-08-28 09:41] VITALS: BP 118/74; PULSE 94; RESP 16; TEMP 36.7; O2SAT 97; BMI 26.1
== END 2024-08-28 10:21 | disposition home or self-care (01) ==
LOC: HO.HMCFM 09:30
PROVIDERS: PCP Nurse Practitioner Family; Visit Provider Nurse Practitioner Family
DX: I10 Essential (primary) hypertension (principal); E11.9 Type 2 diabetes mellitus without complications; Z00.00 Encounter for general adult medical examination without abnormal findings; Z13.9 Encounter for screening, unspecified

== ENCOUNTER → 2024-08-28 09:29 | Outpatient (BNVA) | payer MEDICAID, SELFPAY | PROVIDERS: PCP Nurse Practitioner Family; Visit Provider Nurse Practitioner Family | DX: I10 Essential (primary) hypertension (principal); E11.9 Type 2 diabetes mellitus without complications | CPT/HCPCS: 83036; 96127; 99212 ==

== ENCOUNTER 2024-09-30 08:44 | Outpatient (REF) | payer MEDICAID, SELFPAY ==
[2024-09-30 11:36] LABS: MANUAL DIFF FLAG NO
[2024-09-30 11:54] LABS: Appearance Urine Clear; Color Urine Yellow; Glucose Urine UA Negative (Negative); Leukocyte Esterase Urine Small (1+) (Negative); Nitrite Urine Negative (Negative); PH 7.5 (5.0-9.0); Specific Gravity - Urine 1.015 (1.005-1.025); UMIC TRIGGER UACC YES; Urine Blood Negative (Negative); Urine Ketones Negative (Negative); Urine Protein Negative (Neg-Trace)
[2024-09-30 12:00] LABS: Basophils Percent Auto 0.6 % (0-2); Eosinophils Absolute Auto 0.1 X10*3/uL (0.0-0.4); Hematocrit 37.7 % (37.0-47.0); Hemoglobin 12.1 g/dl (12.0-16.0); Imm Gran Abs Auto 0.01 X10*3/uL (0.00-0.03); Imm Gran Pct Auto 0.2 % (0.0-0.4); Lymphocytes Absolute Auto 2.2 X10*3/uL (1.2-4.9); Lymphocytes Percent Auto 45.1 % (20-40); Mean Corpuscular HGB Conc 32.1 g/dl (31.0-35.0); Mean Corpuscular Hemoglobin 31.3 pg (27.0-33.0); Mean Corpuscular Volume 97.4 fL (80.0-98.0); Mean Platelet Volume 10.3 fL (9.4-12.3); Monocytes Absolute Auto 0.4 X10*3/uL (0.1-1.2); Monocytes Percent Auto 7.9 % (2-11); Neutrophils Absolute Auto 2.2 x10*3/uL (2.0-8.3); Neutrophils Percent Auto 45.2 % (45-73); Platelet Count 282 X10*3/uL (160-400); Red Blood Count 3.87 X10*6/uL (4.20-5.50); Red Cell Distribution Width 12.2 % (11.0-16.0)
[2024-09-30 12:13] LABS: Bacteria Urine None Seen (None Seen); Hyaline Casts Urine 0-2 /LPF (0-2); RBC Urine 0-2 /HPF (0-2); Squamous Epithelial Cell Urine 0-2 /HPF (0-2); UACC Culture Trigger YES; WBC Urine 0-5 /HPF (0-5)
[2024-09-30 12:41] LABS: TSH reflex Free T4 1.36 uIU/mL (0.32-4.0)
[2024-09-30 12:51] LABS: Anion Gap 15 (12-20)
[2024-09-30 12:55] LABS: Alanine Aminotransferase 17 U/L (0-31); Albumin Level 4.3 g/dL (3.5-5.0); Alkaline Phosphatase 47 U/L (39-117); Aspartate Amino Transferase 25 U/L (5-31); Bilirubin Total 0.5 mg/dL (0.0-1.0); Blood Urea Nitrogen 11 mg/dL (9-16); Calcium 9.5 mg/dL (8.4-10.2); Carbon Dioxide 29 mmol/L (22-29); Chloride 103 mmol/L (96-108); Cholesterol 127 mg/dL (<200); Estimated Glomerular Filt Rate > 60; Glucose Fasting 110 mg/dL (60-99); HDL Cholesterol 42 mg/dL (>40); LDL Cholesterol Calculated 74 mg/dL (<100); Potassium 4.5 mmol/L (3.3-5.1); Sodium 142 mmol/L (135-145); Total Protein 7.5 g/dL (6.5-8.0); Triglycerides 57 mg/dL (<150)
[2024-09-30 13:07] LABS: Creatinine Urine 86.91 mg/dL
== END 2024-09-30 08:45 | disposition home or self-care (01) ==
LOC: HO.WFDLDS 08:44
PROVIDERS: Visit Provider Nurse Practitioner Family
DX: Z00.00 Encounter for general adult medical examination without abnormal findings (principal); E11.9 Type 2 diabetes mellitus without complications
CPT/HCPCS: 36415; 80053; 80061; 81001; 82043; 82570; 84443; 85025; 87086

== ENCOUNTER 2024-10-16 13:01 | Outpatient (AMB) | payer MEDICAID, SELFPAY ==
--- NOTE | 2024-10-16 13:02 | A.OFFPC_ITS ---
Vital Signs 10/16/24 13:09 Height 5 ft 3 in Weight 149 lb 6 oz BMI 26.5 BP 128/71 Blood Pressure Location Rt brachial Position Sitting Respiration 16 Pulse 75 Pulse Source Pulse Oximeter Temp 98.7 F Temp Source Oral Pulse Oximetry (%) 98 Oxygen Delivery Method Room Air Intake Visit Reasons: AWV Intake Note: patient here for CPE Real Estate Sales Manager Required: Yes Real Estate Sales Manager Name: patient refused Accompanied by: Other Relationship Is last menstrual period known: No Post menopausal: No Patient : No Allergies No Known Allergies Allergy (Verified 10/16/24 13:19) Medication List - Last Reconciled 10/16/24 by Kelsie Acuna CNP amlodipine 10 mg PO DAILY atorvastatin 20 mg PO BEDTIME blood sugar diagnostic (FreeStyle Test strips) As directed blood-glucose meter (FreeStyle [place] Lite kit) As directed hydrochlorothiazide 12.5 mg PO QAM lancets (FreeStyle Lancets) As directed lisinopril 40 mg PO DAILY 90 days metformin ER 750 mg PO BID 30 days nut.tx.gluc.intol,lac-free,soy (Glucerna Therapeutic Nutrition oral liquid) 1-2 drinks daily 30 days pen needle, diabetic (BD Ultra-Fine Micro Pen Needle) POC testing three times daily Tobacco use date assessed: 10/16/24 Fall risk assessment: No Falls in past year Last assessed Fall Risk: 10/16/24 Dental Screening Dental Screen Date: 10/16/24 Did you have a dental visit in the last 12 months?: Yes Did you have a dental problem in the last 6 months where you did not have access to dental care?: No Was dental information given to patient?: Patient has dentist HPI HPI Comments History of Present Illness Details 64-year-old Creole speaking female, acco mpanied by her [id number], presents for an extended physical exam and review of recent labs. She admits to taking her medications as prescribed without adverse reactions. Acute issue(s) - Reports intermittent right upper arm c ramps, worst at night, for the past 2 months Past Medical History - hypertension, diabetes, cataract of jayleen th eyes Social History - Nonsmoker. Does not vape. Does not dri nk alcohol. Denies recreational drug use - Has been making healthy dietary choice s. She dances regularly for exercise. Generally sleep well Health maintenance - Last eye exam was a couple months ago with [facility] ophthalmology. Will request her eye record - Last dental visit was last month; all her teeth were removed; she currently has full dentures. - Last tetanus vaccine unknown; will rev iew her health record and update as needed - Unsure of the shingles vaccine; encour age to review records and update as needed - PPSV is documented in her chart on 05/23. She is unsure whether she is fully vaccinated for PNA. She will review her record and update as needed - Has not been vaccinated for the flu ; declines vaccination - Last pap smear test was on 10/2023: No rmal - Last mammogram was on 11/24/2023: Trupti l - She has never had a colonoscopy. Decli phoebe colonoscopy at this time. She requests a Cologuard test - Last dexa scan was on 11/07/2023: Oste oporosis. Vitamin D3 ordered. Referred to [facility] endocrinology - She has never been seen by x ray control equipment repairer. Referred to Podiatry Interpretation by the patient's daughter in [facility] per patient's preference [facility] Medical History Diabetes 1.5, managed as type 2 Hypertension Diabetic coma Cataracts, bilateral Surgical History History of cataract surgery Family History Other No pertinent family history Social History Housing: House Alcohol intake: never Patient Tobacco Use Status: Never used Tobacco e-Cigarette/Vaping Use: Never Used Second Hand Smoke Exposure: No service: No Current occupational status: retired Current occupational exposures/hazards: No Cognitive needs: No Hearing needs: No Vision needs: No Female Reproductive History Menstrual Age of Menarche: 15 Questionnaire PHQ-9 Over the last 2 weeks, how often have you been bothered by any of the following problems? 1. Little interest or pleasure in doing things: not at all 2. Feeling down, depressed, or hopeless: not at all 3. Trouble falling or staying asleep, or sleeping too much: not at all 4. Feeling tired or having little energy: not at all 5. Poor appetite or overeating: not at all 6. Feeling bad about yourself - or that you are a failure or have let yourself or your family down: not at all 7. Trouble concentrating on things, such as reading the newspaper or watching television: not at all 8. Moving or speaking so slowly that other people could have noticed. Or the opposite - being so fidgety or restless that you have been moving around a lot more than usual: not at all 9. Thoughts that you would be better off or of hurting yourself in some way: not at all Total score: 0 Depression Screening Interpretation: Negative Depression Screening Done: Yes 47924 - PHQ-9 Billing: Yes Source: Developed by Drs. Weston Goncalves, Frida Edmondson, Rajan Tolliver and colleagues, with an educational cassandra from [employer]. Thrive Questionnaire Date Thrive assessed: 10/16/24 I am a: Patient What is your living situation today?: I have a steady place to live Within the past 12 months, did the food you bought not last and you didn't have the money to get more?: Never true Within the past 12 months, did you worry whether your food would run out before you got money to buy more?: Never true Do you have trouble paying for medicines?: No Do you have trouble getting transportation to medical appointments?: No Do you have trouble paying your heating and electricity bill?: No Do you have trouble taking care of your child, family member or friend?: No Do you have trouble with day-to-day activities such as bathing, preparing meals, shopping, managing finances, etc.?: No Are you currently unemployed and looking for a job?: No Are you interested in more education?: No Please select the resources that you would like help with: None Currently or been in a relationship where the following occur: No concerns reported THRIVE Score: 0 AUDIT C Alcohol Use Questionnaire (AUDIT-C) 1. How often do you have a drink containing alcohol?: Never Total Score: 0 Score Reviewed/Action Taken: Yes JASWINDER-7 AMB Questionnaire JASWINDER-7 Date JASWINDER - 7 assessed: 10/16/24 Feeling nervous, anxious, or on edge: 0 = Not at all Not being able to stop or control worryin = Not at all Worrying too much about different things: 0 = Not at all Trouble relaxin = Not at all Being so restless that it is hard to sit still: 0 = Not at all Becoming easily annoyed or irritable: 0 = Not at all Feeling afraid as if something awful might happen: 0 = Not at all Total JASWINDER-7 score (0-4 normal; 5-9 mild; 10-14 moderate; 15-21 severe): 0 Source: Developed by Drs. Weston Goncalves, Frida Edmondson, Rajan Tolliver and colleagues, with an educational cassandra from [employer]. JASWINDER-7 Assessment Billing JASWINDER-7 Assessment Tool: JASWINDER-7 Assessment 23491 Review of Systems Const Details: Denies chills, Denies fatigue, Denies fever(s), Denies headache(s) and Denies weakness HEENT Denies change in vision, Denies dizziness, Denies headache(s), Denies hearing loss, Denies nasal congestion, Denies sinus pain, Denies sinus pressure and Denies sore throat Card Denies chest pain, Denies lightheadedness, Denies dyspnea and Denies other (palpitations) Resp Denies cough, Denies dyspnea and Denies wheezing GI Denies abdominal pain, Denies melena, Denies hematochezia, Denies change in bowel habits, Denies dyspepsia and Denies nausea Denies hematuria and Denies dysuria Musc Denies abnormal gait, Denies myalgias, Denies arthralgias, Denies numbness and Denies tingling Skin/Breast Denies rash, Denies unusual bruising and Denies wounds Neuro Denies abnormal gait, Denies dizziness, Denies headache(s), Denies memory loss, Denies numbness, Denies Sensory deficit (Neuro), Denies tingling and Denies weakness Psych Denies anxiety, Denies depression and Denies memory loss Endo Denies cold intolerance, Denies fatigue, Denies heat intolerance, Denies polydipsia and Denies polyuria Jose M/Lymph Denies easy bleeding and Denies easy bruising Aller/Immun Denies wheezing Physical exam (Primary Care) Vital Signs: Last Vital Signs Temp 98.7 F 10/16/24 13:09 Pulse 75 10/16/24 13:09 Resp 16 10/16/24 13:09 BP 128/71 10/16/24 13:09 Pulse Ox 98 10/16/24 13:09 Oxygen Delivery Method Room Air 10/16/24 13:09 BMI result Body Mass Index 26.5 Tobacco/Smoking Status: Tobacco use Status Tobacco use date assessed 10/16/24 10/16/24 13:09 Patient Tobacco Use Status Never used Tobacco 10/16/24 13:06 e-Cigarette/Vaping Use Never Used 10/16/24 13:06 PHQ-9: PHQ-9 Score PHQ-9: Total score 0 10/16/24 13:14 Depression Screening Interpretation: Negative Thrive Assessment: Date of Thrive Assessment Date Thrive assessed 10/16/24 10/16/24 13:06 Currently or been in a relationship where the following occur: No concerns reported Const Other: General: no acute distress, well developed, alert and awake Nutritional Appearance: well nourished Orientation/consciousness: patient oriented x3 HENMT Head: Yes normocephalic and Yes atraumatic Ears: hearing grossly normal bilaterally and TM's normal bilaterally General nose exam: Normal external nose present and Normal nares present Mouth: Normal oral and palatal mucosa present and moist mucous membranes Teeth and gingiva: dentition normal Throat: Yes oropharynx normal Eyes Pupils: Equal, round and reactive pupils present and Pupil accommodation reflex normal EOM: EOMs intact bilaterally Neck Neck: Yes normal visual inspection, Yes no lymphadenopathy and Yes trachea midline Thyroid: Thyroid normal Carotids: no bruits Lymphatic: no lymphadenopathy noted Chest Chest palpation & inspection: normal inspection of the chest Resp Effort & Inspection: normal respiratory effort Auscultation: clear to auscultation bilaterally Cardio Rate: regular rate Rhythm: regular rhythm Heart sounds: S1 normal heart sound present, S2 normal heart sound present, no gallops, no murmurs and no rubs Bruits: no abdominal aortic bruits and no carotid bruits GI Palpation (GI): No Abdominal aortic bruit present, Soft to palpation, nontender, No hepatosplenomegaly present and No Rebound tenderness present Auscultation: normal bowel sounds General: Yes no CVA tenderness Back/Spine/Pelvis Back: no CVA tenderness Cervical Spine: cervical ROM normal and No Cervical spine tenderness Thoracic/Lumbar Spine: thoraco-lumbar ROM normal, No pain with thoraco-lumbar ROM, No thoracic spinal tenderness and No lumbar spinal tenderness Skin General: warm and dry. Normal skin color. Normal skin turgor Lesions: no lesions Rashes: no rashes Trauma: no lacerations or abrasions Wounds: no wounds Nails: normal Neuro General: patient oriented x3, gait normal and CN's II-XI intact bilaterally Cranial nerves: Yes Equal, round and reactive pupils present Cognition (Neuro): normal cognition Gait exam (Neuro): Normal gait present Motor exam (neuro): 5/5 motor strength present throughout Sensory Exam: No Sensory deficit (Neuro) Deep tendon reflexes (DTR's): Right patellar reflex intensity grade: 2+ and Left patellar reflex intensity grade: 2+ Extrem General: Yes normal to inspection, No edema and No calf tenderness Psych Appearance: grossly normal Affect: normal affect Attitude: cooperative Thought process: Normal thought process present Coding Level of Care Code Est Pt Level 3 (96895) Est Pt Prev Care >65y(64075) Diagnoses Normal physical examination, routine Z00.00 Cramp of muscle of right upper extremity R25.2 Osteoporosis M81.0 Colon cancer screening Z12.11 Type 2 diabetes mellitus without complication, without long-term current use of insulin E11.9 Diabetes mellitus continuous churn buttermaker insulin use: without continuous churn buttermaker use Diabetes mellitus complication status: without complication Additional Codes JASWINDER-7 Assessment Billing - JASWINDER-7 Assessment Tool: JASWINDER-7 Assessment 02915 ([id number]) PHQ-9 - 31500 - PHQ-9 Billing: Yes ([id number]) Assessment & Plan Assessment & Plan (1) Normal physical examination, routine: Code(s): Z00.00 - Encounter for general adult medical examination without abnormal findings Category: Medical Plan: No significant physical limitations noted. Continue current treatment regimen. Healthy diet and routine exercise encouraged. Follow-up in 9 weeks for hypertension and diabetes or sooner with symptoms or concerns. Verbalized understanding and agreed with the treatment plan. (2) Cramp of muscle of right upper extremity: Code(s): R25.2 - Cramp and spasm Category: Medical Plan: Intermittent right upper arm cramps, worst at night, for the past 2 months. Will check magnesium, vitamin B12, and folate levels. Will make changes as needed. Warm compresses and massages as needed. Follow-up with worsening or new symptoms. Verbalized understanding and agreed with the plan. (3) Osteoporosis: Code(s): M81.0 - Age-related osteoporosis without current pathological fracture Category: Medical Plan: Recent DEXA scan revealed osteoporosis. Vitamin D3 3000 units daily ordered; advised to take as prescribed. Referred to endocrinology for further evaluation and treatment. (4) Colon cancer screening: Code(s): Z12.11 - Encounter for screening for malignant neoplasm of colon Category: Medical Plan: She has never had a colonoscopy. Declines colonoscopy. Cologuard test ordered as requested. (5) Type 2 diabetes mellitus: Code(s): E11.9 - Type 2 diabetes mellitus without complications Category: Medical Qualifiers: Diabetes mellitus continuous churn buttermaker insulin use: without fdc use Diabetes mellitus complication status: without complication Qualified Code(s): E11.9 - Type 2 diabetes mellitus without complications Plan: She had never been seen by a x ray control equipment repairer. Podiatry referral made. Continue current treatment regimen. Orders: Orders Magnesium Today R25.2 - Cramp and spasm Vitamin B12 and Folate Today R25.2 - Cramp and spasm Referrals Endocrinology Referral M81.0 - Age-related osteoporosis without current pathological fracture Podiatry Referral E11.9 - Type 2 diabetes mellitus without complications Cologuard Test Z12.11 - Encounter for screening for malignant neoplasm of colon Medications: New cholecalciferol (vitamin D3) 75 mcg PO DAILY 90 days 90 tabs 1RF blood-glucose meter (FreeStyle [place] Lite kit) As directed 1 ea 0RF E11.9 - Type 2 diabetes mellitus without complications Changed From metformin ER 750 mg PO BID 30 days 60 tabs 3RF To metformin ER 750 mg PO BID 90 days 180 tabs 1RF
[2024-10-16 13:09] VITALS: BP 128/71; PULSE 75; RESP 16; TEMP 37.1; O2SAT 98; BMI 26.5
== END 2024-10-16 13:56 | disposition home or self-care (01) ==
PROVIDERS: PCP Nurse Practitioner Family; Visit Provider Nurse Practitioner Family
DX: Z00.00 Encounter for general adult medical examination without abnormal findings (principal); R25.2 Cramp and spasm; E11.9 Type 2 diabetes mellitus without complications; M81.0 Age-related osteoporosis without current pathological fracture; Z12.11 Encounter for screening for malignant neoplasm of colon

== ENCOUNTER → 2024-10-16 13:01 | Outpatient (BNVA) | payer MEDICAID, SELFPAY | PROVIDERS: PCP Nurse Practitioner Family; Visit Provider Nurse Practitioner Family | DX: Z00.00 Encounter for general adult medical examination without abnormal findings (principal); R25.2 Cramp and spasm; M81.0 Age-related osteoporosis without current pathological fracture; E11.9 Type 2 diabetes mellitus without complications | CPT/HCPCS: 96127; 99212; 99397 ==

== ENCOUNTER 2024-10-16 14:01 | Outpatient (REF) | payer MEDICAID, SELFPAY ==
[2024-10-16 18:19] LABS: Folate 11.9 ng/mL (> or = 4.0); Vitamin B12 504 pg/mL (200-900)
== END 2024-10-16 14:02 | disposition home or self-care (01) ==
LOC: HO.WFDLDS 14:01
PROVIDERS: Visit Provider Nurse Practitioner Family
DX: R25.2 Cramp and spasm (principal)
CPT/HCPCS: 36415; 82607; 82746; 83735

== ENCOUNTER 2024-11-06 12:44 | Outpatient (AMB) | payer MEDICAID, SELFPAY ==
--- NOTE | 2024-11-06 12:50 | A.OFFVIS_ITS ---
Vital Signs 11/06/24 12:51 Height 5 ft 3 in Weight 150 lb 12.739 oz BMI 26.7 BP 144/90 H Blood Pressure Location Lt brachial Position Sitting Pulse 62 Pulse Source Pulse Oximeter Intake Visit Reasons: Age-related osteoporosis Intake Note: Patient present today for Age-related osteoporosis office visit. Filenet Admin Required: No Filenet Admin Name: Akiko [id number] Accompanied by: Self / Same As Patient Allergies No Known Allergies Allergy (Verified 11/06/24 12:56) HPI Comments Details: 64 YO Female is seen in consultation at the request of PCP for Osteoporosis. First diagnosed in Sep 2024 . Not Received treatment in the past No history of pathologic fracture or ONJ. Has several servings of dietary calcium per day in the form of broccoli, OJ . Not Takes Calcium supplement Not Takes Denies ever using PPI, anticoagulant, antiepileptic or glucocorticoid medication. Does weight bearing exercise 7 days per week in the form of bike riding . Fracture history: No Height loss: N CARPORT ERECTOR history: Menarche at age 15 - menopause at age 43 - nl menses Denies history of Kidney stones: Denies family history of Osteoporosis or hip fracture. UTD on dental cleanings and sees dentist every 6 months. No planned upcoming dental work or extractions. No tabacco use or ETOH abuse DXA dated 11/07/23:FINDINGS: LEFT FEMUR, NECK: BMD 0.810 g/cm2, Z-score -1.1, T-score -1.6, osteopenia. LEFT FEMUR, TOTAL: BMD 0.818 g/cm2, Z-score -1.3, T-score -1.5, osteopenia. AP SPINE L1-L4: BMD 0.879 g/cm2, Z-score -1.6, T-score -2.5, osteoporosis. IDENTIFIED RISK FACTORS: Menopause, secondary osteoporosis (type 1 diabetes). HISTORY OF FRACTURE: None listed. MEDICATIONS: None listed. MM/XR DEXA axial skeleton IMPRESSION: 1. DIAGNOSIS: Osteoporosis based on the lowest T-score value of -2.5 in the lumbar spine applying World Health Organization criteria. Labs: [facility] Medical History Diabetes 1.5, managed as type 2 Hypertension Diabetic coma Cataracts, bilateral Surgical History History of cataract surgery Family History Other No pertinent family history Social History Housing: House Alcohol intake: never Patient Tobacco Use Status: Never used Tobacco e-Cigarette/Vaping Use: Never Used Second Hand Smoke Exposure: No service: No Current occupational status: retired Current occupational exposures/hazards: No Cognitive needs: No Hearing needs: No Vision needs: No Female Reproductive History Menstrual Age of Menarche: 15 Physical Exam Vital Signs: Last Vital Signs Pulse 62 11/06/24 12:51 BP 144/90 H 11/06/24 12:51 BMI result Body Mass Index 26.7 There are no Cushingoid features. Absence of blue sclera. Absence of kyphosis. Thyroid gland is of nl size and weighs 15 gms. There are no thyroid nodules palpated. Lungs CTA. Heart S1 S2 Reg R/R Abdominal exam benign. Muscle strength 5/5 . Examination of spine reveals absence of tenderness on palpation Assessment & Plan Assessment & Plan (1) Osteoporosis: Code(s): M81.0 - Age-related osteoporosis without current pathological fracture Category: Medical Plan: This is a 64-year-old female with a history of osteoporosis borderline. Partial secondary workup has been negative Will complete secondary workup by checking phosphorus level, 25 hydroxy vitamin- D, SPEP, urine immunofixation, 24 hour urine for calcium and creatinine. Will ensure 1200 mg of calcium per day in diet and supplementation (recommended Vi activ sugar free 500 mg twice a day) and continue vitamin-D supplementation. Assuming secondary workup was negative could consider use of anti resorptive therapy like oral or intravenous bisphosphonate . We will push lifestyle changes like weight-bearing exercise Orders: Orders Phosphorus Today M81.0 - Age-related osteoporosis without current pathological fracture Vitamin D 25-OH Total Today M81.0 - Age-related osteoporosis without current pathological fracture Protein Electrophoresis, Serum Today M81.0 - Age-related osteoporosis without current pathological fracture Immunofixation, Random Urine Today M81.0 - Age-related osteoporosis without current pathological fracture Calcium, 24 Hr Ur Today M81.0 - Age-related osteoporosis without current pathological fracture Creatinine, 24 Hr Group Today M81.0 - Age-related osteoporosis without current pathological fracture Coding Level of Care Code New Pt Level 4 (22466) Diagnoses Osteoporosis M81.0
[2024-11-06 12:51] VITALS: BP 144/90; PULSE 62; BMI 26.7
== END 2024-11-06 13:29 | disposition home or self-care (01) ==
PROVIDERS: PCP Nurse Practitioner Family; Visit Provider Internal Medicine Endocrinology, Diabetes & Metabolism
DX: M81.0 Age-related osteoporosis without current pathological fracture (principal)
CPT/HCPCS: 99204

== ENCOUNTER → 2024-11-06 12:44 | Outpatient (BNVA) | payer MEDICAID, SELFPAY | PROVIDERS: PCP Nurse Practitioner Family; Visit Provider Internal Medicine Endocrinology, Diabetes & Metabolism | DX: M81.0 Age-related osteoporosis without current pathological fracture (principal) | CPT/HCPCS: 99202 ==

== ENCOUNTER 2024-11-20 12:13 | Outpatient (REF) | payer MEDICAID, SELFPAY ==
--- OUTSIDE RECORDS SUMMARY | 2024-11-20 16:04 | XMS_ITS | Clinical Summary ---
Author Organization [address] [facility] Address [address] [place] [address] Phone Care Team Providers Care Packager Machine Name Role Phone Kelsie Acuna DANIELLE Primary Care Provider [phone] Social History Tobacco Use Types Packs/Day Years Used Date Smoking Tobacco: Never Assessed Sex and Gender Information Value Date Recorded Sex Assigned at Not on file Gender Identity Not on file Sexual Orientation Not on file Plan of Treatment Upcoming Encounters Date Type Department Care Team ([facility] Contact Info) Description 01/01/2025 1:45 PM EDT Consult Orthopedic Surgery - [place] [id number] [address] Ricky Zeng DPM [address] [address] Health Maintenance Due Date Last Done Comments Diabetes: Annual GFR (Glomer ular Filtration Rate) 1958 Pneumococcal Vaccine: 65+ Ye ars (1 of 2 - PCV) 1964 Diabetes: Annual Foot Exam 1968 Diabetes: Annual Retina Eye Exam 1968 DTaP,Tdap,and Td Vaccines (1 - Tdap) 1977 Zoster Vaccines (1 of 2) 2008 COVID-19 Vaccine ( - 2023-2 5 season) 2024 Influenza Vaccine (#1) 2024 Abdominal Aortic Aneurysm (A AA) Screen 10/23/2024 Cholesterol Screening (Lipid Panel) 10/23/2024 Colorectal Cancer Screening: Colonoscopy 10/23/2024 Depression Screening 10/23/2024 Diabetes: Annual Urine Albumin-Creatinine Ratio (uACR) 10/23/2024 Diabetes: Blood Sugar Contro l Test (HGBA1C) 10/23/2024 Falls Risk Assessment 10/23/2024 Hepatitis C Screening 10/23/2024 Social Influencers of Health Screening 10/23/2024 RSV Immunization Patients 60 + Years Old (1 - 1-dose 75+ series) 2033 HIB Vaccines Aged Out No longer eligi ble based on patient's age to complete this topic HPV Vaccines Aged Out No longer eligi ble based on patient's age to complete this topic Hepatitis A Vaccines Aged Out No long er eligible based on patient's age to complete this topic Hepatitis B Vaccines Aged Out No long er eligible based on patient's age to complete this topic IPV Vaccines Aged Out No longer eligi ble based on patient's age to complete this topic MMR Vaccines Aged Out No longer eligi ble based on patient's age to complete this topic Meningococcal ACWY Vaccine Aged Out N o longer eligible based on patient's age to complete this topic RSV Immunization Patients Un kasey 20 months Aged Out No longer eligible b ased on patient's age to complete this topic Varicella Vaccines Aged Out No longer eligible based on patient's age to complete this topic Care Teams Packager Machine Relationship Specialty Start Date End Date Kelsie Acuna FNP [address] [facility] [place] [address] PCP - General Family Medicine 10/23/24
== END 2024-11-20 12:14 | disposition home or self-care (01) ==
LOC: HO.MAMMO 12:13
PROVIDERS: PCP Nurse Practitioner Family; Visit Provider Nurse Practitioner Family
DX: Z12.31 Encounter for screening mammogram for malignant neoplasm of breast (principal)
CPT/HCPCS: 77063; 77067

== ENCOUNTER → 2024-11-20 13:45 | Outpatient (BNV) | payer MEDICAID, SELFPAY | PROVIDERS: PCP Nurse Practitioner Family; Visit Provider Internal Medicine | DX: Z12.31 Encounter for screening mammogram for malignant neoplasm of breast (principal) | CPT/HCPCS: 77063; 77067 ==

== ENCOUNTER 2024-12-01 11:15 | Outpatient (AMB) | payer MEDICAID, SELFPAY ==
--- NOTE | 2024-12-01 11:38 | MHC.PC.OV ---
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intol,lac-free,soy (Glucerna Therapeutic Nutrition oral liquid) 1-2 drinks daily 30 days pen needle, diabetic (BD Ultra-Fine Micro Pen Needle) POC testing three times daily Tobacco use date assessed: 12/01/24 Fall risk assessment: No Falls in past year Last assessed Fall Risk: 12/01/24 Dental Screening Dental Screen Date: 12/01/24 Did you have a dental visit in the last 12 months?: Yes Did you have a dental problem in the last 6 months where you did not have access to dental care?: No Was dental information given to patient?: Patient has dentist HPI HPI Comments History of Present Illness Details 64-year-old Creole speaking female, accompanied by her son, presents for hypertension and diabetes follow up. She admits to taking her medications as prescribed without adverse reactions. She notes that she has been making healthy dietary choices and walking routinely. No acute symptoms at this time. Interpretation by the patient's son per patient's preference. [facility] Medical History Diabetes 1.5, managed as type 2 Hypertension Diabetic coma Cataracts, bilateral Surgical History History of cataract surgery Family History Other No pertinent family history Social History Housing: House Alcohol intake: never Patient Tobacco Use Status: Never used Tobacco e-Cigarette/Vaping Use: Never Used Second Hand Smoke Exposure: No service: No Current occupational status: retired Current occupational exposures/hazards: No Cognitive needs: No Hearing needs: No Vision needs: No Female Reproductive History Menstrual Age of Menarche: 15 Questionnaire PHQ-9 Over the last 2 weeks, how often have you been bothered by any of the following problems? 1. Little interest or pleasure in doing things: not at all 2. Feeling down, depressed, or hopeless: not at all 3. Trouble falling or staying asleep, or sleeping too much: not at all 4. Feeling tired or having little energy: not at all 5. Poor appetite or overeating: not at all 6. Feeling bad about yourself - or that you are a failure or have let yourself or your family down: not at all 7. Trouble concentrating on things, such as reading the newspaper or watching television: not at all 8. Moving or speaking so slowly that other people could have noticed. Or the opposite - being so fidgety or restless that you have been moving around a lot more than usual: not at all 9. Thoughts that you would be better off or of hurting yourself in some way: not at all Total score: 0 Depression Screening Interpretation: Negative Depression Screening Done: Yes 18822 - PHQ-9 Billing: Yes Source: Developed by Drs. Weston Goncalves, Frida Edmondson, Rajan Tolliver and colleagues, with an educational cassandra from [employer]. Thrive Questionnaire Date Thrive assessed: 12/01/24 I am a: Patient What is your living situation today?: I choose not to answer this question Within the past 12 months, did the food you bought not last and you didn't have the money to get more?: I choose not to answer this question Within the past 12 months, did you worry whether your food would run out before you got money to buy more?: I choose not to answer this question Do you have trouble paying for medicines?: I choose not to answer this question Do you have trouble getting transportation to medical appointments?: I choose not to answer this question Do you have trouble paying your heating and electricity bill?: I choose not to answer this question Do you have trouble taking care of your child, family member or friend?: I choose not to answer this question Do you have trouble with day-to-day activities such as bathing, preparing meals, shopping, managing finances, etc.?: I choose not to answer this question Are you currently unemployed and looking for a job?: I choose not to answer this question Are you interested in more education?: I choose not to answer this question Please select the resources that you would like help with: None Currently or been in a relationship where the following occur: I choose not to answer THRIVE Score: 0 AUDIT C Alcohol Use Questionnaire (AUDIT-C) 1. How often do you have a drink containing alcohol?: Never Total Score: 0 JASWINDER-7 AMB Questionnaire JASWINDER-7 Date JASWINDER - 7 assessed: 12/01/24 Feeling nervous, anxious, or on edge: 0 = Not at all Not being able to stop or control worryin = Not at all Worrying too much about different things: 0 = Not at all Trouble relaxin = Not at all Being so restless that it is hard to sit still: 0 = Not at all Becoming easily annoyed or irritable: 0 = Not at all Feeling afraid as if something awful might happen: 0 = Not at all Total JASWINDER-7 score (0-4 normal; 5-9 mild; 10-14 moderate; 15-21 severe): 0 Source: Developed by Drs. Weston Goncalves, Frida Edmondson, Rajan Tolliver and colleagues, with an educational cassandra from [employer]. Review of Systems Const Details: Const Denies chills, Denies fatigue, Denies fever(s), Denies headache(s) and Denies weakness ENT Denies dizziness and Denies headache(s) Card Denies chest pain, Denies lightheadedness, Denies dyspnea and Denies other (Palpitations) Resp Denies cough, Denies dyspnea, Denies wheezing and Denies other ( shortness of breath) GI Denies abdominal pain, Denies melena, Denies hematochezia, Denies change in bowel habits, Denies dyspepsia and Denies nausea Denies hematuria and Denies dysuria Musc Denies abnormal gait, Denies myalgias, Denies arthralgias, Denies numbness and Denies tingling Skin/Breast Denies rash, Denies unusual bruising and Denies wounds Neuro Denies abnormal gait, Denies dizziness, Denies headache(s), Denies memory loss, Denies numbness, Denies Sensory deficit (Neuro), Denies tingling and Denies weakness Psych Denies anxiety, Denies depression, Denies memory loss Endo Denies cold intolerance, Denies fatigue, Denies heat intolerance, Denies polydipsia and Denies polyuria Aller/Immun Denies wheezing Physical exam (Primary Care) Vital Signs: Last Vital Signs Temp 98.1 F 12/01/24 11:47 Pulse 85 12/01/24 11:47 Resp 16 12/01/24 11:47 BP 138/84 12/01/24 11:47 Pulse Ox 96 12/01/24 11:47 Oxygen Delivery Method Room Air 12/01/24 11:47 BMI result Body Mass Index 25.9 Tobacco/Smoking Status: Tobacco use Status Tobacco use date assessed 12/01/24 12/01/24 11:50 Patient Tobacco Use Status Never used Tobacco 12/01/24 11:38 e-Cigarette/Vaping Use Never Used 12/01/24 11:38 PHQ-9: PHQ-9 Score PHQ-9: Total score 0 12/01/24 11:50 Depression Screening Interpretation: Negative Thrive Assessment: Date of Thrive Assessment Date Thrive assessed 12/01/24 12/01/24 11:50 Currently or been in a relationship where the following occur: I choose not to answer Const Other: General: no acute distress and well developed Nutritional Appearance: well nourished Orientation/consciousness: patient oriented x3 HENMT Head: Yes normocephalic and Yes atraumatic Eyes General: appearance normal, both eyes and all related structures Pupils: Equal, round and reactive pupils present EOM: EOMs intact bilaterally Resp Effort & Inspection: normal respiratory effort Auscultation: clear to auscultation bilaterally Cardio Rate: regular rate Rhythm: regular rhythm Heart sounds: S1 normal heart sound present, S2 normal heart sound present, no gallops, no murmurs and no rubs GI Palpation (GI): No Abdominal aortic bruit present, Soft to palpation, nontender, No hepatosplenomegaly present and No Rebound tenderness present Auscultation: normal bowel sounds General: Yes no CVA tenderness Back/Spine/Pelvis Back: no CVA tenderness Cervical Spine: cervical ROM normal and No Cervical spine tenderness Thoracic/Lumbar Spine: thoraco-lumbar ROM normal, No pain with thoraco-lumbar ROM, No thoracic spinal tenderness and No lumbar spinal tenderness Extrem General: Yes normal to inspection, No edema and No calf tenderness Skin General: warm and dry. Normal skin color. Normal skin turgor Neuro General: patient oriented x3, gait normal and no focal neuro deficit Cranial nerves: Yes Equal, round and reactive pupils present Cognition (Neuro): normal cognition Gait exam (Neuro): Normal gait present Sensory Exam: No Sensory deficit (Neuro) Psych Appearance: grossly normal Affect: normal affect Attitude: cooperative Thought process: Normal thought process present Coding Level of Care Code Est Pt Level 4 (91290) Diagnoses Primary hypertension I10 Hypertension type: primary hypertension Type 2 diabetes mellitus without complication, without long-term current use of insulin E11.9 Diabetes mellitus long-term insulin use: without termite treater helper use Diabetes mellitus complication status: without complication Additional Codes PHQ-9 - 99666 - PHQ-9 Billing: Yes ([id number]) Assessment & Plan Assessment & Plan (1) Hypertension: Code(s): I10 - Essential (primary) hypertension Category: Medical Qualifiers: Hypertension type: primary hypertension Qualified Code(s): I10 - Essential (primary) hypertension Plan: Resting blood pressure is 138/84, slightly above goal of less than 130/80. Previous blood pressure was elevated. Will increase hydrochlorothiazide to 25 mg daily; advised to take as prescribed. Continue to take amlodipine and lisinopril as prescribed. Low-sodium diet encouraged. Follow-up in 1 month or sooner with symptoms or concerns. Verbalized understanding and agreed with the plan. (2) Type 2 diabetes mellitus: Code(s): E11.9 - Type 2 diabetes mellitus without complications Category: Medical Qualifiers: Diabetes mellitus long-term insulin use: without termite treater helper use Diabetes mellitus complication status: without complication Qualified Code(s): E11.9 - Type 2 diabetes mellitus without complications Plan: A1c today is 5.8%, within goal of less than 7.0%. Previous A1c was 5.9%. Continue current treatment regimen. ADA diet and routine exercise encouraged. Will recheck A1c in 3 months. Verbalized understanding and agreed with treatment plan. Medications: New hydrochlorothiazide 25 mg PO QAM 90 days 90 tabs 1RF Discontinued hydrochlorothiazide Discontinued Reason: Doctor's Order 12.5 mg PO QAM 90 tabs 0RF
[2024-12-01 11:47] VITALS: BP 138/84; PULSE 85; RESP 16; TEMP 36.7; O2SAT 96; BMI 25.9
== END 2024-12-01 12:32 | disposition home or self-care (01) ==
PROVIDERS: PCP Nurse Practitioner Family; Visit Provider Nurse Practitioner Family
DX: I10 Essential (primary) hypertension (principal); E11.9 Type 2 diabetes mellitus without complications

== ENCOUNTER → 2024-12-01 11:15 | Outpatient (BNVA) | payer MEDICAID, SELFPAY | PROVIDERS: PCP Nurse Practitioner Family; Visit Provider Nurse Practitioner Family | DX: I10 Essential (primary) hypertension (principal); E11.9 Type 2 diabetes mellitus without complications | CPT/HCPCS: 96127; 99212 ==

== ENCOUNTER 2024-12-25 10:18 | Outpatient (AMB) | payer MEDICAID, SELFPAY ==
--- NOTE | 2024-12-25 10:19 | A.OFFVIS_ITS ---
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 Sleeve Presser Operator Services: Sleeve Presser Operator Present Sleeve Presser Operator Name: JULIO [id number] Information Interpreted: clinical only Print Producer: Print Producer Present Allergies No Known Allergies Allergy (Verified 12/25/24 10:27) Medication List - Last Reconciled 12/25/24 by Alayna Duarte CNM amlodipine 10 mg PO DAILY atorvastatin 20 mg PO BEDTIME blood sugar diagnostic (FreeStyle Test strips) As directed blood-glucose meter (FreeStyle [place] Lite kit) As directed cholecalciferol (vitamin D3) 75 mcg PO DAILY 90 days hydrochlorothiazide 25 mg PO QAM 90 days lancets (FreeStyle Lancets) As directed lisinopril 40 mg PO DAILY 90 days metformin ER 750 mg PO BID 90 days nut.tx.gluc.intol,lac-free,soy (Glucerna Therapeutic Nutrition oral liquid) 1-2 drinks daily 30 days pen needle, diabetic (BD Ultra-Fine Micro Pen Needle) POC testing three times daily Post menopausal: Yes HPI HPI 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 Visit was done with the assistance of the patient Creole translation which was slightly challenging, patient voiced no concerns gynecological early at all she is sexually active with her . Per the records she had a recent mammogram and her Pap smear done at age 63 last year was completely negative so she does not need another 1.. She tells me her blood sugars are getting better and were closer to 190. Her blood pressure was within normal range today. [facility] Medical History Diabetes 1.5, managed as type 2 Hypertension Diabetic coma Cataracts, bilateral Surgical History History of cataract surgery Family History Other No pertinent family history Social History Housing: House Alcohol intake: never Patient Tobacco Use Status: Never used Tobacco e-Cigarette/Vaping Use: Never Used Second Hand Smoke Exposure: No service: No Current occupational status: retired Current occupational exposures/hazards: No Cognitive needs: No Hearing needs: No Vision needs: No Female Reproductive History Menstrual Age of Menarche: 15 Full term: 5 Date of last pap smear: 11/19/23 (negative) Date of Mammogram: 11/20/24 (neg) Physical Exam Const General: healthy appearing, comfortable, no acute distress, well developed and alert Nutritional Appearance: average body habitus Orientation/consciousness: patient oriented x3 Limitations: no limitations HEENT Head: Yes normocephalic Neck Neck: Yes normal visual inspection Chest Chest palpation & inspection: normal inspection of the chest Breast/axilla inspection: normal inspection of the breasts and normal inspection of the axillae Breast/axilla palpation: normal palpation of the breasts and normal palpation of the axillae Resp Effort & Inspection: normal respiratory effort GI Inspection: Yes normal to inspection, No Abdominal wall edema and No distended Palpation (GI): Soft to palpation and nontender Other: External vagina within normal limits vagina is pink and moist no signs of any excoriation or yeast infection no abnormal discharge cervix long close thick mobile nontender uterus difficult to palpate but nontender adnexa nontender moderate tone with Kegel. General: Yes bladder normal to palpation External Female Exam: normal external appearance and normal appearance of the urethra Speculum Exam - Vagina: normal appearance of the vagina, normal palpation and normal vaginal discharge Speculum Exam - Cervix: normal appearance of the cervix, normal palpation and nontender Bimanual exam- vagina & uterus: normal bimanual exam, normal palpation, uterine size normal, bladder normal to palpation, consistency normal, normal palpation, uterine mobility normal, uterine shape normal, No Cervical tenderness present, non-tender and no cervical motion tenderness Bimanual Exam- Adnexa, other: normal adnexae, no masses, normal and No adnexal tenderness Neuro General: patient oriented x3 Results Reviewed Results Reviewed: Name: Yaneth Waddell Age/Sex: 63/F Attending: Alayna Duarte CNM : 1960 Submitted by: Alayna Duarte CNM Copies to: Kelsie Acuna CNP MR #: [id number] Status: DEP REF Collected: 11/19/23 Location: [facility] Received: 11/20/23 Interpretation Satisfactory for evaluation. Mild inflammation. Negative for intraepithelial lesion or malignancy. HPV mRNA E6/E7: NOT DETECTED This assay detects E6/E7 viral messenger RNA (mRNA) from 14 high-risk HPV types (16, 18, 31, 33, 35, 39, 45, 51, 52, 56, 58, 59, 66, 68) HPV testing performed by [facility], [place], [place]. See reference laboratory portion of the EMR for entire report. Clinical Information LMP: No menses Previous PAP test: Unknown date/findings Material Received ThinPrep-Cervical Copies To Alayna Duarte [address] [place] [address] Kelsie Acuna [employer]RO[employer] CHIEF [address] [place] [address] [email or web address] Electronically Signed By: GABRIEL Uriarte (ASCP) 11/30/23 6606 The Pap Test is a screening procedure with the inherent possibility of both false negative and false positive results. Results should be interpreted in the context of historic and current clinical findings. Reliability of the Pap Test is enhanced by performing the test on a Patient: Yaneth Waddell Age/Sex: 63/F MR#: [id number] Page 1 of 2 Gynecologic Cytology [id number] regular repetitive basis. Patient: Yaneth Waddell Age/Sex: 63/F MR#: [id number]. [facility] [address] [place] [address] Mammography Report Signed Patient: Yaneth Waddell MR#: [id number] : 1960 Acct:[id number] Age/Sex: 64 / F ADM Date: 11/20/24 Loc: HO.MAMMO Attending Dr: Kelsie Acuna CNP Ordering Physician: Kelsie Acuna CNP Results: 1Negative Date of Service: 11/20/24 Follow Up: 1 Year From Original Mammogram Procedure(s): MM tomosynthesis screening BI Accession Number(s): [id number] cc: Kelsie Acuna CNP~ EXAMINATION: MM SCREENING DIGITAL BREAST TOMOSYNTHESIS, BILATERAL CLINICAL INFORMATION: Screening. Asymptomatic. COMPARISON: Mammography: Comparison is made with available priors TECHNIQUE: Digital breast mammography with tomosynthesis is performed in both the craniocaudal and mediolateral oblique views along with computer-aided detection (CAD). FINDINGS: There are scattered areas of fibroglandular density (ACR BI-RADS breast composition Category b). There are no significant masses, abnormal calcifications, or other abnormalities. MM/MM tomosynthesis screening BI IMPRESSION: No mammographic evidence of malignancy. ASSESSMENT: BI-RADS BI-RADS 1 - Negative RECOMMENDATION: Routine annual mammography screening. 1 year F/U This examination should not preclude the clinical evaluation of a suspicious palpable abnormality. This patient's information was entered into a reminder system with a target due date for their next mammogram. 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 =( negative with negative HPV,-) If this is negative there will be no further Pap smears. Code(s): Z12.4 - Encounter for screening for malignant neoplasm of cervix Category: Medical (4) Women's annual routine gynecological examination: Code(s): Z01.419 - Encounter for gynecological examination (general) (routine) without abnormal findings Category: Medical (5) Breast cancer screening: Code(s): Z12.39 - Encounter for other screening for malignant neoplasm of breast Category: Medical (6) Hypertension: Code(s): I10 - Essential (primary) hypertension Category: Medical Qualifiers: Hypertension type: primary hypertension Qualified Code(s): I10 - Essential (primary) hypertension Plan -----Discussed in this visit the following: healthy balanced diet, regular and consistent exercise, getting recommended health screens, doing the best she can for her particular health concerns, kegel exercises, pap smear screening and followup recommendations, mammography screening and SBE, normal changes in cycles in her life stage--- . She has no survey superintendent concerns at all and appears in very good health this year and seems to be doing very well with her diabetes and hypertension. I did again review that she will not need any Pap smears any longer she had no need of any other testing and she is up-to-date on other screens. RTC 1 year if desired Coding Level of Care Code Est Pt Prev Care >65y(51896) Diagnoses Type 2 diabetes mellitus without complication, without long-term current use of insulin E11.9 Diabetes mellitus complication status: without complication Diabetes mellitus long-term insulin use: without dedicated intermodal truck driver use Breast cancer screening by mammogram Z12.31 Pap smear for cervical cancer screening Z12.4 Women's annual routine gynecological examination Z01.419 Breast cancer screening Z12.39 Primary hypertension I10 Hypertension type: primary hypertension
[2024-12-25 10:21] VITALS: BP 122/70; BMI 26.2
--- OUTSIDE RECORDS SUMMARY | 2024-12-25 12:11 | XMS_ITS | Clinical Summary ---
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 Name Role Phone Kelsie Acuna DANIELLE Primary Care Provider [phone] Social History Tobacco Use Types Packs/Day Years Used Date Smoking Tobacco: Never Assessed Sex and Gender Information Value Date Recorded Sex Assigned at Not on file Legal Sex Male 8:11 AM EST Gender Identity Not on file Sexual Orientation Not on file Plan of Treatment Upcoming Encounters Date Type Department Care Team ([facility] Contact Info) Description 01/01/2025 1:45 PM EDT Consult Orthopedic Surgery - [place] [id number] [phone] Ricky Zeng DPM [address] [address] Health Maintenance Due Date Last Done Comments Diabetes: Annual GFR (Glomer ular Filtration Rate) 1960 Diabetes: Annual Foot Exam 1968 Diabetes: Annual Retina Eye Exam 1968 DTaP,Tdap,and Td Vaccines (1 - Tdap) 1977 Pneumococcal Vaccine: 50+ Ye ars (1 of 2 - PCV) 1977 Zoster Vaccines (1 of 2) 2008 [...] patient's age to complete this topic Meningococcal B Vacine Aged Out No lo nger eligible based on patient's age to complete this topic RSV Immunization Patients Un kasey 20 months Aged Out No longer eligible b ased on patient's age to complete this topic Varicella Vaccines Aged Out No longer eligible based on patient's age to complete this topic Insurance MEDICAID - [place] Care Teams Drying Rack Changer Relationship Specialty Start Date End Date Kelsie Acuna FNP [address] [place] [address] PCP - General Family Medicine 10/23/24
== END 2024-12-25 13:05 | disposition home or self-care (01) ==
LOC: HO.HWSM 10:18
PROVIDERS: PCP Nurse Practitioner Family; Visit Provider Advanced Practice Midwife
DX: Z01.419 Encounter for gynecological examination (general) (routine) without abnormal findings (principal); E11.9 Type 2 diabetes mellitus without complications; I10 Essential (primary) hypertension
CPT/HCPCS: 99397; 99459

== ENCOUNTER → 2024-12-25 10:18 | Outpatient (BNVA) | payer MEDICAID, SELFPAY | PROVIDERS: PCP Nurse Practitioner Family; Visit Provider Advanced Practice Midwife | DX: Z01.419 Encounter for gynecological examination (general) (routine) without abnormal findings (principal); I10 Essential (primary) hypertension; E11.9 Type 2 diabetes mellitus without complications; Z12.39 Encounter for other screening for malignant neoplasm of breast | CPT/HCPCS: 99397; 99459 ==

== ENCOUNTER 2024-12-31 10:32 | Outpatient (AMB) | payer MEDICAID, SELFPAY ==
--- NOTE | 2024-12-31 10:37 | MHC.PC.OV ---
Vital Signs 12/31/24 10:48 12/31/24 11:34 Height 5 ft 3 in Weight 146 lb 6 oz BMI 25.9 BP 130/76 120/80 Blood Pressure Location Rt brachial Lt brachial Position Sitting Sitting Respiration 16 Pulse 83 Pulse Source Pulse Oximeter Temp 98.4 F Temp Source Oral Pulse Oximetry (%) 98 Oxygen Delivery Method Room Air Intake Visit Reasons: 1 mos HTN Intake Note: patient here for 1 month follow up Health Information Internship Required: Yes Health Information Internship Name: PT.refused/daughter w/her Information Interpreted: non-clinical & clinical Accompanied by: Daughter Is last menstrual period known: No Post menopausal: No Patient : No Allergies No Known Allergies Allergy (Verified 12/31/24 11:13) Medication List - Last Reconciled 12/31/24 by Kelsie Acuna CNP amlodipine 10 mg PO DAILY 90 days atorvastatin 20 mg PO BEDTIME blood sugar diagnostic (FreeStyle Test strips) As directed blood-glucose meter (FreeStyle [place] Lite kit) As directed cholecalciferol (vitamin D3) 75 mcg PO DAILY 90 days hydrochlorothiazide 25 mg PO QAM 90 days lancets (FreeStyle Lancets) As directed lisinopril 40 mg PO DAILY 90 days metformin ER 750 mg PO BID 90 days nut.tx.gluc.intol,lac-free,soy (Glucerna Therapeutic Nutrition oral liquid) 1-2 drinks daily 30 days pen needle, diabetic (BD Ultra-Fine Micro Pen Needle) POC testing three times daily Tobacco use date assessed: 12/31/24 Fall risk assessment: No Falls in past year Last assessed Fall Risk: 12/31/24 Dental Screening Dental Screen Date: 12/31/24 Did you have a dental visit in the last 12 months?: Yes Did you have a dental problem in the last 6 months where you did not have access to dental care?: No Was dental information given to patient?: Patient has dentist HPI HPI Comments History of Present Illness Details 64-year-old Creole speaking female, accompanied by her [id number], presents for hypertension follow up. She admits to taking her medications as prescribed without adverse reactions. She notes that she has been making healthy dietary choices and walking routinely. The patient's [id number] requests H pylori testing for the patient due to members of the family who tested positive for H pylori. No acute symptoms at this time. Interpretation by the patient's livzulzf-yw-nls per patient's preference. [facility] Medical History Diabetes 1.5, managed as type 2 Hypertension Diabetic coma Cataracts, bilateral Surgical History History of cataract surgery Family History Other No pertinent family history Social History Housing: House Alcohol intake: never Patient Tobacco Use Status: Never used Tobacco e-Cigarette/Vaping Use: Never Used Second Hand Smoke Exposure: No Patient : No service: No Current occupational status: retired Current occupational exposures/hazards: No Cognitive needs: No Hearing needs: No Vision needs: No Female Reproductive History Menstrual Age of Menarche: 15 Questionnaire PHQ-9 Over the last 2 weeks, how often have you been bothered by any of the following problems? 1. Little interest or pleasure in doing things: not at all 2. Feeling down, depressed, or hopeless: not at all 3. Trouble falling or staying asleep, or sleeping too much: not at all 4. Feeling tired or having little energy: not at all 5. Poor appetite or overeating: not at all 6. Feeling bad about yourself - or that you are a failure or have let yourself or your family down: not at all 7. Trouble concentrating on things, such as reading the newspaper or watching television: not at all 8. Moving or speaking so slowly that other people could have noticed. Or the opposite - being so fidgety or restless that you have been moving around a lot more than usual: not at all 9. Thoughts that you would be better off or of hurting yourself in some way: not at all Total score: 0 Depression Screening Interpretation: Negative Depression Screening Done: Yes 42675 - PHQ-9 Billing: Yes Source: Developed by Drs. Weston Goncalves, Frida Edmondson, Rajan Tolliver and colleagues, with an educational cassandra from [employer]. Thrive Questionnaire Date Thrive assessed: 12/31/24 I am a: Patient What is your living situation today?: I choose not to answer this question Within the past 12 months, did the food you bought not last and you didn't have the money to get more?: I choose not to answer this question Within the past 12 months, did you worry whether your food would run out before you got money to buy more?: I choose not to answer this question Do you have trouble paying for medicines?: I choose not to answer this question Do you have trouble getting transportation to medical appointments?: I choose not to answer this question Do you have trouble paying your heating and electricity bill?: I choose not to answer this question Do you have trouble taking care of your child, family member or friend?: I choose not to answer this question Do you have trouble with day-to-day activities such as bathing, preparing meals, shopping, managing finances, etc.?: I choose not to answer this question Are you currently unemployed and looking for a job?: I choose not to answer this question Are you interested in more education?: I choose not to answer this question Please select the resources that you would like help with: None Currently or been in a relationship where the following occur: I choose not to answer THRIVE Score: 0 AUDIT C Alcohol Use Questionnaire (AUDIT-C) 1. How often do you have a drink containing alcohol?: Never 3. How often do you have six or more drinks on one occasion?: Never Total Score: 0 JASWINDER-7 AMB Questionnaire JASWINDER-7 Date JASWINDER - 7 assessed: 12/31/24 Feeling nervous, anxious, or on edge: 0 = Not at all Not being able to stop or control worryin = Not at all Worrying too much about different things: 0 = Not at all Trouble relaxin = Not at all Being so restless that it is hard to sit still: 0 = Not at all Becoming easily annoyed or irritable: 0 = Not at all Feeling afraid as if something awful might happen: 0 = Not at all Total JASWINDER-7 score (0-4 normal; 5-9 mild; 10-14 moderate; 15-21 severe): 0 Source: Developed by Drs. Weston Goncalves, Frida Edmondson, Rajan Tolliver and colleagues, with an educational cassandra from [employer]. JASWINDER-7 Assessment Billing JASWINDER-7 Assessment Tool: JASWINDER-7 Assessment 18910 Review of Systems Const Details: Const Denies chills, Denies fatigue, Denies fever(s), Denies headache(s) and Denies weakness ENT Denies dizziness and Denies headache(s) Card Denies chest pain, Denies lightheadedness, Denies dyspnea and Denies other (Palpitations) Resp Denies cough, Denies dyspnea, Denies wheezing and Denies other ( shortness of breath) GI Denies abdominal pain, Denies melena, Denies hematochezia, Denies change in bowel habits, Denies dyspepsia and Denies nausea Denies hematuria and Denies dysuria Musc Denies abnormal gait, Denies myalgias, Denies arthralgias, Denies numbness and Denies tingling Skin/Breast Denies rash, Denies unusual bruising and Denies wounds Neuro Denies abnormal gait, Denies dizziness, Denies headache(s), Denies memory loss, Denies numbness, Denies Sensory deficit (Neuro), Denies tingling and Denies weakness Psych Denies anxiety, Denies depression, Denies memory loss Endo Denies cold intolerance, Denies fatigue, Denies heat intolerance, Denies polydipsia and Denies polyuria Aller/Immun Denies wheezing Physical exam (Primary Care) Vital Signs: Last Vital Signs Temp 98.4 F 12/31/24 10:48 Pulse 83 12/31/24 10:48 Resp 16 12/31/24 10:48 BP 120/80 12/31/24 11:34 Pulse Ox 98 12/31/24 10:48 Oxygen Delivery Method Room Air 12/31/24 10:48 BMI result Body Mass Index 25.9 Tobacco/Smoking Status: Tobacco use Status Tobacco use date assessed 12/31/24 12/31/24 10:54 Patient Tobacco Use Status Never used Tobacco 12/31/24 10:39 e-Cigarette/Vaping Use Never Used 12/31/24 10:39 PHQ-9: PHQ-9 Score PHQ-9: Total score 0 12/31/24 11:15 Depression Screening Interpretation: Negative Thrive Assessment: Date of Thrive Assessment Date Thrive assessed 12/31/24 12/31/24 10:54 Currently or been in a relationship where the following occur: I choose not to answer Const Other: General: no acute distress and well developed Nutritional Appearance: well nourished Orientation/consciousness: patient oriented x3 HENMT Head: Yes normocephalic and Yes atraumatic Eyes General: appearance normal, both eyes and all related structures Pupils: Equal, round and reactive pupils present EOM: EOMs intact bilaterally Resp Effort & Inspection: normal respiratory effort Auscultation: clear to auscultation bilaterally Cardio Rate: regular rate Rhythm: regular rhythm Heart sounds: S1 normal heart sound present, S2 normal heart sound present, no gallops, no murmurs and no rubs GI Palpation (GI): No Abdominal aortic bruit present, Soft to palpation, nontender, No hepatosplenomegaly present and No Rebound tenderness present Auscultation: normal bowel sounds General: Yes no CVA tenderness Back/Spine/Pelvis Back: no CVA tenderness Cervical Spine: cervical ROM normal and No Cervical spine tenderness Thoracic/Lumbar Spine: thoraco-lumbar ROM normal, No pain with thoraco-lumbar ROM, No thoracic spinal tenderness and No lumbar spinal tenderness Extrem General: Yes normal to inspection, No edema and No calf tenderness Skin General: warm and dry. Normal skin color. Normal skin turgor Neuro General: patient oriented x3, gait normal and no focal neuro deficit Cranial nerves: Yes Equal, round and reactive pupils present Cognition (Neuro): normal cognition Gait exam (Neuro): Normal gait present Sensory Exam: No Sensory deficit (Neuro) Psych Appearance: grossly normal Affect: normal affect Attitude: cooperative Thought process: Normal thought process present Coding Level of Care Code Est Pt Level 3 (47628) Diagnoses Primary hypertension I10 Hypertension type: primary hypertension Contact with and (suspected) exposure to other bacterial communicable diseases Z20.818 Additional Codes JASWINDER-7 Assessment Billing - JASWINDER-7 Assessment Tool: JASWINDER-7 Assessment 79738 ([id number]) PHQ-9 - 45400 - PHQ-9 Billing: Yes ([id number]) Assessment & Plan Assessment & Plan (1) Hypertension: Code(s): I10 - Essential (primary) hypertension Category: Medical Qualifiers: Hypertension type: primary hypertension Qualified Code(s): I10 - Essential (primary) hypertension Plan: Resting blood pressure is 120/80, slightly above goal of less than 130/80. She has not taking lisinopril she is she ran out refill 2 days ago. Lisinopril was refilled on 12/29/2024; advised to picker feeder medication from the pharmacy and take as prescribed. Continue to take amlodipine and hydrochlorothiazide as prescribed. Follow-up in 2 months for hypertension or diabetes or sooner with symptoms or concerns. Verbalized understanding and agreed with treatment plan. (2) Contact with and (suspected) exposure to other bacterial communicable diseases: Code(s): Z20.818 - Contact with and (suspected) exposure to other bacterial communicable diseases Category: Medical Plan: H pylori test ordered. Orders: Orders H pylori Ag Stool Today Z20.818 - Contact with and (suspected) exposure to other bacterial communicable diseases
[2024-12-31 10:48] VITALS: BP 130/76; PULSE 83; RESP 16; TEMP 36.9; O2SAT 98; BMI 25.9
[2024-12-31 11:34] VITALS: BP 120/80
--- OUTSIDE RECORDS SUMMARY | 2024-12-31 12:10 | XMS_ITS | Clinical Summary ---
Author Organization [address] [facility] Address [address] [place] [address] Phone Care Team Providers Care Biomass Technician Name Role Phone Kelsie Acuna DANIELLE Primary Care Provider [phone] Social History Tobacco Use Types Packs/Day Years Used Date Smoking Tobacco: Never Assessed Sex and Gender Information Value Date Recorded Sex Assigned at Not on file Legal Sex Male 8:11 AM EST Gender Identity Not on file Sexual Orientation Not on file Plan of Treatment Upcoming Encounters Date Type Department Care Team ([facility] Contact Info) Description 01/01/2025 1:45 PM EDT Consult Orthopedic Surgery - [place] [id number] [phone] Ricky Zeng DPM [address] [address] Health Maintenance Due Date Last Done Comments [...] topic Insurance MEDICAID - [place] Care Teams Biomass Technician Relationship Specialty Start Date End Date Kelsie Acuna FNP [address] [place] [address] PCP - General Family Medicine 10/23/24
== END 2024-12-31 11:24 | disposition home or self-care (01) ==
LOC: HO.HMCFM 10:33
PROVIDERS: PCP Nurse Practitioner Family; Visit Provider Nurse Practitioner Family
DX: I10 Essential (primary) hypertension (principal); Z20.818 Contact with and (suspected) exposure to other bacterial communicable diseases

== ENCOUNTER → 2024-12-31 10:32 | Outpatient (BNVA) | payer MEDICAID, SELFPAY | PROVIDERS: PCP Nurse Practitioner Family; Visit Provider Nurse Practitioner Family | DX: I10 Essential (primary) hypertension (principal); Z20.818 Contact with and (suspected) exposure to other bacterial communicable diseases | CPT/HCPCS: 96127; 99212 ==

== ENCOUNTER 2025-02-17 11:24 | Outpatient (REF) | payer MEDICAID, SELFPAY ==
--- OUTSIDE RECORDS SUMMARY | 2025-02-17 13:32 | XMS_ITS | Clinical Summary ---
Author Organization 175 [facility] Address [address] [place] [address] Phone Care Team Providers Care Recruiting Assistant Name Role Phone Kelsie Acuna DANIELLE Primary Care Provider [phone] Social History Tobacco Use Types Packs/Day Years Used Date Smoking Tobacco: Never Assessed Sex and Gender Information Value Date Recorded Sex Assigned at Not on file Legal Sex Male 8:11 AM EST Gender Identity Not on file Sexual Orientation Not on file Plan of Treatment Upcoming Encounters Date Type Department Care Team ([facility] Contact Info) Description 03/05/2025 2:00 PM EDT Consult Orthopedic Surgery - [place] [address] [phone] Ricky Zeng, SUSHIL [address] [address] Health Maintenance Due Date Last Done Comments DTaP,Tdap,and Td Vaccines (1 - Tdap) 1977 Pneumococcal Vaccine: 50+ Ye ars (1 of 2 - PCV) 1977 Zoster Vaccines (1 of 2) 2008 COVID-19 Vaccine ( - 2023-2 5 season) 2024 Abdominal Aortic Aneurysm (A AA) Screen 10/23/2024 Cholesterol Screening (Lipid Panel) 10/23/2024 Colorectal Cancer Screening: Colonoscopy 10/23/2024 Depression Screening 10/23/2024 Falls Risk Assessment 10/23/2024 Hepatitis C Screening 10/23/2024 Social Influencers of Health Screening 10/23/2024 Influenza Vaccine (Season Ended) 2025 RSV Immunization Adult Patie nts (1 - 1-dose 75+ series) 2033 HIB [...] age to complete this topic Meningococcal B Vaccine Aged Out No l onger eligible based on patient's age to complete this topic RSV Immunization Patients Un kasey 20 months Aged Out No longer eligible b ased on patient's age to complete this topic Varicella Vaccines Aged Out No longer eligible based on patient's age to complete this topic Insurance MEDICAID - [place] Care Teams Recruiting Assistant Relationship Specialty Start Date End Date Kelsie Acuna FNP [address] [place] [address] PCP - General Family Medicine 10/23/24
== END 2025-02-17 11:25 | disposition home or self-care (01) ==
LOC: HO.LNP 11:24
PROVIDERS: Visit Provider Nurse Practitioner Family
DX: Z20.818 Contact with and (suspected) exposure to other bacterial communicable diseases (principal)
CPT/HCPCS: 87338

== ENCOUNTER 2025-03-03 11:30 | Outpatient (AMB) | payer MEDICAID, SELFPAY ==
--- NOTE | 2025-03-03 11:35 | A.OFFPC_ITS ---
Vital Signs 03/03/25 11:43 Height 5 ft 3 in Weight 145 lb 8 oz BMI 25.8 BP 115/67 Blood Pressure Location Rt brachial Position Sitting Respiration 16 Pulse 66 Pulse Source Pulse Oximeter Temp 97.8 F Temp Source Oral Pulse Oximetry (%) 99 Oxygen Delivery Method Room Air Intake Visit Reasons: 2m fu on dm and htn Intake Note: patient here for 2 month follow up on DM and HTN Mortar Mixer Required: Yes Mortar Mixer Language: Ivorian Creole Mortar Mixer Name: pt refused daughter w/her Information Interpreted: non-clinical & clinical Is last menstrual period known: No Post menopausal: No Patient : No Allergies No Known Allergies Allergy (Verified 03/03/25 12:07) Medication List - Last Reconciled 03/03/25 by Kelsie Acuna CNP amlodipine 10 mg PO DAILY 90 days atorvastatin 20 mg PO BEDTIME blood sugar diagnostic (FreeStyle Test strips) As directed blood-glucose meter (FreeStyle [place] Lite kit) As directed cholecalciferol (vitamin D3) 75 mcg PO DAILY 90 days hydrochlorothiazide 25 mg PO QAM 90 days lancets (FreeStyle Lancets) As directed lisinopril 40 mg PO DAILY 90 days metformin ER 750 mg PO BID 90 days nut.tx.gluc.intol,lac-free,soy (Glucerna Therapeutic Nutrition oral liquid) 1-2 drinks daily 30 days pen needle, diabetic (BD Ultra-Fine Micro Pen Needle) POC testing three times daily Tobacco use date assessed: 03/03/25 Fall risk assessment: No Falls in past year Last assessed Fall Risk: 03/03/25 Dental Screening Dental Screen Date: 03/03/25 Did you have a dental visit in the last 12 months?: Yes Did you have a dental problem in the last 6 months where you did not have access to dental care?: No Was dental information given to patient?: Patient has dentist HPI HPI Comments History of Present Illness Details 64-year-old Creole speaking female, acco mpanied by her [id number], presents for hypertension and diabetes follow up. She admits to taking her medications as prescribed without adverse reactions. She notes that she has been making healthy dietary choices and walking routinely. No acute symptoms at this time. Interpretation by the patient's [id number] per patient's preference. [facility] Medical History Diabetes 1.5, managed as type 2 Hypertension Diabetic coma Cataracts, bilateral Surgical History History of cataract surgery Family History Other No pertinent family history Social History Housing: House Alcohol intake: never Patient Tobacco Use Status: Never used Tobacco e-Cigarette/Vaping Use: Never Used Second Hand Smoke Exposure: No service: No Current occupational status: retired Current occupational exposures/hazards: No Cognitive needs: No Hearing needs: No Vision needs: No Female Reproductive History Menstrual Age of Menarche: 15 Questionnaire Thrive Questionnaire Date Thrive assessed: 12/01/24 I am a: Patient What is your living situation today?: I choose not to answer this question Within the past 12 months, did the food you bought not last and you didn't have the money to get more?: I choose not to answer this question Within the past 12 months, did you worry whether your food would run out before you got money to buy more?: I choose not to answer this question Do you have trouble paying for medicines?: I choose not to answer this question Do you have trouble getting transportation to medical appointments?: I choose not to answer this question Do you have trouble paying your heating and electricity bill?: I choose not to answer this question Do you have trouble taking care of your child, family member or friend?: I choose not to answer this question Do you have trouble with day-to-day activities such as bathing, preparing meals, shopping, managing finances, etc.?: I choose not to answer this question Are you currently unemployed and looking for a job?: I choose not to answer this question Are you interested in more education?: I choose not to answer this question Please select the resources that you would like help with: None Currently or been in a relationship where the following occur: I choose not to answer THRIVE Score: 0 JASWINDER-7 AMB Questionnaire JASWINDER-7 Date JASWINDER - 7 assessed: 12/31/24 Source: Developed by Drs. Weston Goncalves, Frida Edmondson, Rajan Tolliver and colleagues, with an educational cassandra from [employer]. Review of Systems Const Details: Const Denies chills, Denies fatigue, Denies fever(s), Denies headache(s) and Denies weakness ENT Denies dizziness and Denies headache(s) Card Denies chest pain, Denies lightheadedness, Denies dyspnea and Denies other (Palpitations) Resp Denies cough, Denies dyspnea, Denies wheezing and Denies other ( shortness of breath) GI Denies abdominal pain, Denies melena, Denies hematochezia, Denies change in bowel habits, Denies dyspepsia and Denies nausea Denies hematuria and Denies dysuria Musc Denies abnormal gait, Denies myalgias, Denies arthralgias, Denies numbness and Denies tingling Skin/Breast Denies rash, Denies unusual bruising and Denies wounds Neuro Denies abnormal gait, Denies dizziness, Denies headache(s), Denies memory loss, Denies numbness, Denies Sensory deficit (Neuro), Denies tingling and Denies weakness Psych Denies anxiety, Denies depression, Denies memory loss Endo Denies cold intolerance, Denies fatigue, Denies heat intolerance, Denies polydipsia and Denies polyuria Aller/Immun Denies wheezing Physical exam (Primary Care) Vital Signs: Last Vital Signs Temp 97.8 F 03/03/25 11:43 Pulse 66 03/03/25 11:43 Resp 16 03/03/25 11:43 BP 115/67 03/03/25 11:43 Pulse Ox 99 03/03/25 11:43 Oxygen Delivery Method Room Air 03/03/25 11:43 BMI result Body Mass Index 25.8 Tobacco/Smoking Status: Tobacco use Status Tobacco use date assessed 03/03/25 03/03/25 11:46 Patient Tobacco Use Status Never used Tobacco 03/03/25 11:37 e-Cigarette/Vaping Use Never Used 03/03/25 11:37 Thrive Assessment: Date of Thrive Assessment Date Thrive assessed 12/01/24 03/03/25 11:37 Currently or been in a relationship where the following occur: I choose not to answer Const Other: General: no acute distress and well developed Nutritional Appearance: well nourished Orientation/consciousness: patient oriented x3 HENMT Head: Yes normocephalic and Yes atraumatic Eyes General: appearance normal, both eyes and all related structures Pupils: Equal, round and reactive pupils present EOM: EOMs intact bilaterally Resp Effort & Inspection: normal respiratory effort Auscultation: clear to auscultation bilaterally Cardio Rate: regular rate Rhythm: regular rhythm Heart sounds: S1 normal heart sound present, S2 normal heart sound present, no gallops, no murmurs and no rubs GI Palpation (GI): No Abdominal aortic bruit present, Soft to palpation, nontender, No hepatosplenomegaly present and No Rebound tenderness present Auscultation: normal bowel sounds General: Yes no CVA tenderness Back/Spine/Pelvis Back: no CVA tenderness Cervical Spine: cervical ROM normal and No Cervical spine tenderness Thoracic/Lumbar Spine: thoraco-lumbar ROM normal, No pain with thoraco-lumbar ROM, No thoracic spinal tenderness and No lumbar spinal tenderness Extrem General: Yes normal to inspection, No edema and No calf tenderness Skin General: warm and dry. Normal skin color. Normal skin turgor Neuro General: patient oriented x3, gait normal and no focal neuro deficit Cranial nerves: Yes Equal, round and reactive pupils present Cognition (Neuro): normal cognition Gait exam (Neuro): Normal gait present Sensory Exam: No Sensory deficit (Neuro) Psych Appearance: grossly normal Affect: normal affect Attitude: cooperative Thought process: Normal thought process present Coding Level of Care Code Est Pt Level 4 (62580) Diagnoses Primary hypertension I10 Hypertension type: primary hypertension Type 2 diabetes mellitus without complication, without long-term current use of insulin E11.9 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 pylori infection A04.8 Assessment & Plan Assessment & Plan (1) Hypertension: Code(s): I10 - Essential (primary) hypertension Category: Medical Qualifiers: Hypertension type: primary hypertension Qualified Code(s): I10 - Essential (primary) hypertension Plan: Blood pressure is 115/67, within goal of less than 130/80. Continue current treatment regimen. Low-sodium diet encouraged. Follow-up in 3 months or sooner with symptoms or concerns. Verbalized understanding and agreed with treatment plan. (2) Type 2 diabetes mellitus: Code(s): E11.9 - Type 2 diabetes mellitus without complications Category: Medical Qualifiers: Diabetes mellitus dedicated intermodal truck driver insulin use: without dedicated intermodal truck driver use Diabetes mellitus complication status: without complication Qualified Code(s): E11.9 - Type 2 diabetes mellitus without complications Plan: Labs A1c today is 5.8%, within goal of less than 7.0%. Previous A1c was 5.8%. Continue current treatment regimen ADA diet and routine exercise encouraged. Will check A1c in 3 months. Verbalized understanding and agreed with the plan. (3) H. pylori infection: Code(s): A04.8 - Other specified bacterial intestinal infections Category: Medical Plan: She recently tested positive for H pylori. Omeprazole 20 mg twice daily for 10 days, clarithromycin 500 mg twice daily for 10 days, and amoxicillin 1000 mg twice daily for 10 days ordered. Advised to take the medications as prescribed. Instructed on the risks, benefits, and potential adverse reactions of the medications. Advised to perform stool test for eradication 4 weeks after completing therapy. Follow-up with symptoms or concerns. Verbalized understanding and agreed with the plan. Orders: Orders H pylori Ag Stool Today A04.8 - Other specified bacterial intestinal infections Medications: New omeprazole 20 mg PO BID 10 days 20 caps 0RF clarithromycin 500 mg PO BID 10 days 20 tabs 0RF amoxicillin 1,000 mg (2 x 500 mg) PO BID 10 days 40 tabs 0RF
[2025-03-03 11:43] VITALS: BP 115/67; PULSE 66; RESP 16; TEMP 36.6; O2SAT 99; BMI 25.8
--- OUTSIDE RECORDS SUMMARY | 2025-03-03 12:59 | XMS_ITS | Clinical Summary ---
Author Organization [address] [facility] Address [address] [place] [address] Phone Care Team Providers Care Furnace Process Supervisor Name Role Phone Kelsie Acuna DANIELLE Primary Care Provider [phone] Social History Tobacco Use Types Packs/Day Years Used Date Smoking Tobacco: Never Assessed Sex and Gender Information Value Date Recorded Sex Assigned at Not on file Legal Sex Male 8:11 AM EST Gender Identity Not on file Sexual Orientation Not on file Plan of Treatment Upcoming Encounters Date Type Department Care Team ([facility] Contact Info) Description 03/05/2025 2:00 PM EDT Consult Orthopedic Surgery - [place] [id number] [id number] Ricky Zeng, SUSHIL [address] [address] Health Maintenance Due Date Last Done Comments [...] topic Insurance MEDICAID - [place] Care Teams Furnace Process Supervisor Relationship Specialty Start Date End Date Kelsie Acuna FNP [address] [place] [address] PCP - General Family Medicine 10/23/24
== END 2025-03-03 12:19 | disposition home or self-care (01) ==
LOC: HO.HMCFM 11:31
PROVIDERS: PCP Nurse Practitioner Family; Visit Provider Nurse Practitioner Family
DX: I10 Essential (primary) hypertension (principal); E11.9 Type 2 diabetes mellitus without complications; A04.8 Other specified bacterial intestinal infections; Z13.9 Encounter for screening, unspecified

== ENCOUNTER → 2025-03-03 11:30 | Outpatient (BNVA) | payer MEDICAID, SELFPAY | PROVIDERS: PCP Nurse Practitioner Family; Visit Provider Nurse Practitioner Family | DX: E11.9 Type 2 diabetes mellitus without complications (principal); I10 Essential (primary) hypertension; A04.8 Other specified bacterial intestinal infections | CPT/HCPCS: 83036; 99212 ==

== ENCOUNTER 2025-03-17 12:47 | Outpatient (AMB) | payer MEDICAID, SELFPAY ==
--- NOTE | 2025-03-17 13:34 | A.OFFVIS_ITS ---
Vital Signs 03/17/25 13:37 Height 5 ft 3 in Weight 140 lb 14.006 oz BMI 25.0 BP 90/64 Blood Pressure Location Rt brachial Position Sitting Pulse 74 Pulse Source Pulse Oximeter Pulse Oximetry (%) 98 Oxygen Delivery Method Room Air Intake Visit Reasons: Age-related osteoporosis Intake Note: Patient present today for Age-related Osteoporosis follow up. Machine Shop Repair Technician Required: Yes Machine Shop Repair Technician Language: Indian Creole Machine Shop Repair Technician Services: Machine Shop Repair Technician Present Machine Shop Repair Technician Name: Era Palmer379 Information Interpreted: non-clinical & clinical Accompanied by: Son Allergies No Known Allergies Allergy (Verified 03/17/25 13:38) HPI Comments Details: 64 YO Female is seen in consultation at the request of PCP for Osteoporosis. First diagnosed in Sep 2024 . Not Received treatment in the past No history of pathologic fracture or ONJ. Has several servings of dietary calcium per day in the form of broccoli, OJ . Not Takes Calcium supplement Not Takes Denies ever using PPI, anticoagulant, antiepileptic or glucocorticoid medication. Does weight bearing exercise 7 days per week in the form of bike riding . 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 UTD on dental cleanings and sees dentist every 6 months. No planned upcoming dental work or extractions. No tabacco use or ETOH abuse DXA dated 11/07/23:FINDINGS: LEFT FEMUR, NECK: BMD 0.810 g/cm2, Z-score -1.1, T-score -1.6, osteopenia. LEFT FEMUR, TOTAL: BMD 0.818 g/cm2, Z-score -1.3, T-score -1.5, osteopenia. AP SPINE L1-L4: BMD 0.879 g/cm2, Z-score -1.6, T-score -2.5, osteoporosis. IDENTIFIED RISK FACTORS: Menopause, secondary osteoporosis (type 1 diabetes). HISTORY OF FRACTURE: None listed. MEDICATIONS: None listed. MM/XR DEXA axial skeleton IMPRESSION: 1. DIAGNOSIS: Osteoporosis based on the lowest T-score value of -2.5 in the lumbar spine applying World Health Organization criteria. Labs: Did not complete secondary workup [facility] Medical History Diabetes 1.5, managed as type 2 Hypertension Diabetic coma Cataracts, bilateral Surgical History History of cataract surgery Family History Other No pertinent family history Social History Housing: House Alcohol intake: never Patient Tobacco Use Status: Never used Tobacco e-Cigarette/Vaping Use: Never Used Second Hand Smoke Exposure: No service: No Current occupational status: retired Current occupational exposures/hazards: No Cognitive needs: No Hearing needs: No Vision needs: No Female Reproductive History Menstrual Age of Menarche: 15 Physical Exam Vital Signs: Last Vital Signs Pulse 74 03/17/25 13:37 BP 90/64 03/17/25 13:37 Pulse Ox 98 03/17/25 13:37 Oxygen Delivery Method Room Air 03/17/25 13:37 BMI result Body Mass Index 25.0 Assessment & Plan Assessment & Plan (1) Osteoporosis: Code(s): M81.0 - Age-related osteoporosis without current pathological fracture Category: Medical Plan: This is a 64-year-old female with a history of osteoporosis borderline. Partial secondary workup has been negative. Patient did not complete secondary workup Will complete secondary workup by checking phosphorus level, 25 hydroxy vitamin- D, SPEP, urine immunofixation, 24 hour urine for calcium and creatinine. Advise patient to complete testing Will ensure 1200 mg of calcium per day in diet and supplementation (recommended Viactiv sugar free 500 mg twice a day) and continue vitamin-D supplementation. Assuming secondary workup was negative could consider use of anti resorptive therapy like oral or intravenous bisphosphonate . We will push lifestyle changes like weight-bearing exercise. This informati on was conveyed through an Indian med aide with the son present. Coding Level of Care Code Est Pt Level 3 (58594) Diagnoses Osteoporosis M81.0
[2025-03-17 13:37] VITALS: BP 90/64; PULSE 74; O2SAT 98; BMI 25.0
== END 2025-03-17 14:26 | disposition home or self-care (01) ==
LOC: HO.ENCR 12:48
PROVIDERS: PCP Nurse Practitioner Family; Visit Provider Internal Medicine Endocrinology, Diabetes & Metabolism
DX: M81.0 Age-related osteoporosis without current pathological fracture (principal)
CPT/HCPCS: 99213

== ENCOUNTER → 2025-03-17 12:47 | Outpatient (BNVA) | payer MEDICAID, SELFPAY | PROVIDERS: PCP Nurse Practitioner Family; Visit Provider Internal Medicine Endocrinology, Diabetes & Metabolism | DX: M81.0 Age-related osteoporosis without current pathological fracture (principal) | CPT/HCPCS: 99212 ==

== ENCOUNTER 2025-06-09 10:52 | Outpatient (AMB) | payer MEDICAID, SELFPAY ==
--- NOTE | 2025-06-09 10:55 | MHC.PC.OV ---
Vital Signs 06/09/25 11:01 Height 5 ft 3 in Weight 142 lb 2 oz BMI 25.2 BP 129/77 Blood Pressure Location Rt brachial Position Sitting Respiration 16 Pulse 76 Pulse Source Pulse Oximeter Temp 97.9 F Temp Source Oral Pulse Oximetry (%) 98 Oxygen Delivery Method Room Air Intake Visit Reasons: 3 mos HTN, DM Intake Note: patient here for follow up on HTN and DM Safety Teacher Required: Yes Safety Teacher Name: patient refused w/son Information Interpreted: non-clinical & clinical Accompanied by: Son Is last menstrual period known: No Post menopausal: No Patient : No Allergies No Known Allergies Allergy (Verified 06/09/25 11:00) Tobacco use date assessed: 06/09/25 Fall risk assessment: No Falls in past year Last assessed Fall Risk: 06/09/25 Dental Screening Dental Screen Date: 06/09/25 Did you have a dental visit in the last 12 months?: Yes Did you have a dental problem in the last 6 months where you did not have access to dental care?: No Was dental information given to patient?: Patient has dentist HPI HPI Comments History of Present Illness Details 64-year-old Creole speaking female, accompanied by her son, presents for hypertension and diabetes follow up. She admits to taking her medications as prescribed without adverse reactions. She notes that she has been making healthy dietary choices and walking routinely. No acute symptoms at this time. Interpretation by the patient's son per patient's preference. [facility] Medical History Diabetes 1.5, managed as type 2 Hypertension Diabetic coma Cataracts, bilateral Surgical History History of cataract surgery Family History Other No pertinent family history Social History Housing: House Alcohol intake: never Patient Tobacco Use Status: Never used Tobacco e-Cigarette/Vaping Use: Never Used Second Hand Smoke Exposure: No service: No Current occupational status: retired Current occupational exposures/hazards: No Cognitive needs: No Hearing needs: No Vision needs: No Female Reproductive History Menstrual Age of Menarche: 15 Questionnaire Thrive Questionnaire Date Thrive assessed: 12/01/24 I am a: Patient What is your living situation today?: I choose not to answer this question Within the past 12 months, did the food you bought not last and you didn't have the money to get more?: I choose not to answer this question Within the past 12 months, did you worry whether your food would run out before you got money to buy more?: I choose not to answer this question Do you have trouble paying for medicines?: I choose not to answer this question Do you have trouble getting transportation to medical appointments?: I choose not to answer this question Do you have trouble paying your heating and electricity bill?: I choose not to answer this question Do you have trouble taking care of your child, family member or friend?: I choose not to answer this question Do you have trouble with day-to-day activities such as bathing, preparing meals, shopping, managing finances, etc.?: I choose not to answer this question Are you currently unemployed and looking for a job?: I choose not to answer this question Are you interested in more education?: I choose not to answer this question Please select the resources that you would like help with: None Currently or been in a relationship where the following occur: I choose not to answer THRIVE Score: 0 JASWINDER-7 AMB Questionnaire JASWINDER-7 Date JASWINDER - 7 assessed: 12/31/24 Source: Developed by Drs. Weston Goncalves, Frida Edmondson, Rajan Tolliver and colleagues, with an educational cassandra from [employer]. Review of Systems Const Details: Const Denies chills, Denies fatigue, Denies fever(s), Denies headache(s) and Denies weakness ENT Denies dizziness and Denies headache(s) Card Denies chest pain, Denies lightheadedness, Denies dyspnea and Denies other (Palpitations) Resp Denies cough, Denies dyspnea, Denies wheezing and Denies other ( shortness of breath) GI Denies abdominal pain, Denies melena, Denies hematochezia, Denies change in bowel habits, Denies dyspepsia and Denies nausea Denies hematuria and Denies dysuria Musc Denies abnormal gait, Denies myalgias, Denies arthralgias, Denies numbness and Denies tingling Skin/Breast Denies rash, Denies unusual bruising and Denies wounds Neuro Denies abnormal gait, Denies dizziness, Denies headache(s), Denies memory loss, Denies numbness, Denies Sensory deficit (Neuro), Denies tingling and Denies weakness Psych Denies anxiety, Denies depression, Denies memory loss Endo Denies cold intolerance, Denies fatigue, Denies heat intolerance, Denies polydipsia and Denies polyuria Aller/Immun Denies wheezing Physical exam (Primary Care) Vital Signs: Last Vital Signs Temp 97.9 F 06/09/25 11:01 Pulse 76 06/09/25 11:01 Resp 16 06/09/25 11:01 BP 129/77 06/09/25 11:01 Pulse Ox 98 06/09/25 11:01 Oxygen Delivery Method Room Air 06/09/25 11:01 BMI result Body Mass Index 25.2 Tobacco/Smoking Status: Tobacco use Status Tobacco use date assessed 03/03/25 06/09/25 10:57 Patient Tobacco Use Status Never used Tobacco 06/09/25 10:57 e-Cigarette/Vaping Use Never Used 06/09/25 10:57 Thrive Assessment: Date of Thrive Assessment Date Thrive assessed 12/01/24 06/09/25 10:57 Currently or been in a relationship where the following occur: I choose not to answer Const Other: General: no acute distress and well developed Nutritional Appearance: well nourished Orientation/consciousness: patient oriented x3 HENMT Head: Yes normocephalic and Yes atraumatic Eyes General: appearance normal, both eyes and all related structures Pupils: Equal, round and reactive pupils present EOM: EOMs intact bilaterally Resp Effort & Inspection: normal respiratory effort Auscultation: clear to auscultation bilaterally Cardio Rate: regular rate Rhythm: regular rhythm Heart sounds: S1 normal heart sound present, S2 normal heart sound present, no gallops, no murmurs and no rubs GI Palpation (GI): No Abdominal aortic bruit present, Soft to palpation, nontender, No hepatosplenomegaly present and No Rebound tenderness present Auscultation: normal bowel sounds General: Yes no CVA tenderness Back/Spine/Pelvis Back: no CVA tenderness Cervical Spine: cervical ROM normal and No Cervical spine tenderness Thoracic/Lumbar Spine: thoraco-lumbar ROM normal, No pain with thoraco-lumbar ROM, No thoracic spinal tenderness and No lumbar spinal tenderness Extrem General: Yes normal to inspection, No edema and No calf tenderness Skin General: warm and dry. Normal skin color. Normal skin turgor Neuro General: patient oriented x3, gait normal and no focal neuro deficit Cranial nerves: Yes Equal, round and reactive pupils present Cognition (Neuro): normal cognition Gait exam (Neuro): Normal gait present Sensory Exam: No Sensory deficit (Neuro) Psych Appearance: grossly normal Affect: normal affect Attitude: cooperative Thought process: Normal thought process present Results AMB Hemoglobin A1c AMB Hemoglobin A1c 5.4 % Last Edit by Yaima Daniels MA on 06/09/25 11:36 Coding Level of Care Code Est Pt Level 3 (97464) Diagnoses Primary hypertension I10 Hypertension type: primary hypertension Type 2 diabetes mellitus without complication, without long-term current use of insulin E11.9 Diabetes mellitus intermediate teacher insulin use: without intermediate teacher use Diabetes mellitus complication status: without complication Assessment & Plan Assessment & Plan (1) Hypertension: Code(s): I10 - Essential (primary) hypertension Category: Medical Qualifiers: Hypertension type: primary hypertension Qualified Code(s): I10 - Essential (primary) hypertension Plan: Blood pressure is 129/77, within goal of less than 130/80. Continue current treatment regimen. Low-sodium diet encouraged. Follow-up in 3 months or sooner with symptoms or concerns. Verbalized understanding and agreed with the plan. (2) Type 2 diabetes mellitus: Code(s): E11.9 - Type 2 diabetes mellitus without complications Category: Medical Qualifiers: Diabetes mellitus intermediate teacher insulin use: without intermediate teacher use Diabetes mellitus complication status: without complication Qualified Code(s): E11.9 - Type 2 diabetes mellitus without complications Plan: A1c today is 5.4%. Previous A1c was 5.8%. Continue current treatment regimen. ADA diet and routine exercise encouraged. Follow-up in 3 months. Verbalized understanding and agreed with the plan. Orders: Orders AMB Hemoglobin A1c Today Z13.9 - Encounter for screening, unspecified
[2025-06-09 11:01] VITALS: BP 129/77; PULSE 76; RESP 16; TEMP 36.6; O2SAT 98; BMI 25.2
== END 2025-06-09 11:18 | disposition home or self-care (01) ==
LOC: HO.HMCFM 10:53
PROVIDERS: PCP Nurse Practitioner Family; Visit Provider Nurse Practitioner Family
DX: I10 Essential (primary) hypertension (principal); E11.9 Type 2 diabetes mellitus without complications; Z13.9 Encounter for screening, unspecified

== ENCOUNTER → 2025-06-09 10:52 | Outpatient (BNVA) | payer MEDICAID, SELFPAY | PROVIDERS: PCP Nurse Practitioner Family; Visit Provider Nurse Practitioner Family | DX: I10 Essential (primary) hypertension (principal); E11.9 Type 2 diabetes mellitus without complications | CPT/HCPCS: 83036; 99212 ==

== ENCOUNTER 2025-06-17 08:13 | Outpatient (REF) | payer MEDICAID, SELFPAY ==
[2025-06-19 22:09] LABS: Prot Elec - Albumin 4.4 g/dL (3.8-4.8); Prot Elec - Alpha1 0.3 g/dL (0.2-0.3); Prot Elec - Alpha2 0.6 g/dL (0.5-0.9); Prot Elec - Beta 1 0.4 g/dL (0.4-0.6); Prot Elec - Beta 2 0.3 g/dL (0.2-0.5); Prot Elec - Gamma 1.3 g/dL (0.8-1.7); Prot Elec - Total Protein 7.3 g/dL (6.1-8.1)
== END 2025-06-17 08:14 | disposition home or self-care (01) ==
LOC: HO.WFDLDS 08:13
PROVIDERS: Visit Provider Internal Medicine Endocrinology, Diabetes & Metabolism
DX: M81.0 Age-related osteoporosis without current pathological fracture (principal)
CPT/HCPCS: 36415; 82306; 84100; 84165

== ENCOUNTER 2025-06-18 14:29 | Outpatient (REF) | payer MEDICAID, SELFPAY ==
[2025-06-18 15:44] LABS: Creatinine, mg/dL 35.75
[2025-06-18 16:08] LABS: Total Volume 24 Hour Urine 2150 mL
[2025-06-26 23:09] LABS: Calcium/Creatinine Ratio 70 mg/g creat (30-275); Creatinine 24Hr Urine 0.80 g/24 h (0.50-2.15)
== END 2025-06-18 14:30 | disposition home or self-care (01) ==
LOC: HO.LNP 14:29
PROVIDERS: Visit Provider Internal Medicine Endocrinology, Diabetes & Metabolism
DX: M81.0 Age-related osteoporosis without current pathological fracture (principal)
CPT/HCPCS: 82340; 82570; 86335

== ENCOUNTER 2025-07-22 09:35 | Outpatient (AMB) | payer MEDICAID, SELFPAY ==
--- NOTE | 2025-07-22 09:44 | MHC.OFFVIS ---
Vital Signs 07/22/25 09:45 Height 5 ft 3 in Weight 146 lb 2.664 oz BMI 25.9 BP 134/72 Blood Pressure Location Lt brachial Position Sitting Pulse 84 Pulse Source Pulse Oximeter Pulse Oximetry (%) 97 Oxygen Delivery Method Room Air Intake Visit Reasons: f/u osteoporosis Intake Note: Patient present today for Age-related Osteoporosis follow up. Retirement Manager Required: Yes Retirement Manager Language: Ethiopian Creole Retirement Manager Services: Retirement Manager Offered & Declined Accompanied by: Daughter and son-in-law Allergies No Known Allergies Allergy (Verified 07/22/25 09:48) Medication List - Last Reconciled 07/22/25 by Weston Black MD amlodipine 10 mg PO DAILY 90 days amoxicillin 1,000 mg (2 x 500 mg) PO BID 10 days atorvastatin 20 mg PO BEDTIME blood sugar diagnostic (FreeStyle Test strips) POC 3 times daily blood-glucose meter (FreeStyle [place] Lite kit) As directed cholecalciferol (vitamin D3) 75 mcg PO DAILY 90 days clarithromycin 500 mg PO BID 10 days hydrochlorothiazide 25 mg PO QAM 90 days lancets (FreeStyle Lancets) As directed lisinopril 40 mg PO DAILY 90 days metformin ER 750 mg PO BID 90 days nut.tx.gluc.intol,lac-free,soy (Glucerna Therapeutic Nutrition oral liquid) 1-2 drinks daily 30 days omeprazole 20 mg PO BID 10 days pen needle, diabetic (BD Ultra-Fine Micro Pen Needle) POC testing three times daily HPI Comments Details: 65 YO Female is seen in consultation at the request of PCP for Osteoporosis. First diagnosed in Sep 2024 . Not Received treatment in the past No history of pathologic fracture or ONJ. Has several servings of dietary calcium per day in the form of broccoli, OJ . Not Takes Calcium supplement Not Takes Denies ever using PPI, anticoagulant, antiepileptic or glucocorticoid medication. Does weight bearing exercise 7 days per week in the form of bike riding . 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 UTD on dental cleanings and sees dentist every 6 months. No planned upcoming dental work or extractions. No tabacco use or ETOH abuse DXA dated 11/07/23:FINDINGS: LEFT FEMUR, NECK: BMD 0.810 g/cm2, Z-score -1.1, T-score -1.6, osteopenia. LEFT FEMUR, TOTAL: BMD 0.818 g/cm2, Z-score -1.3, T-score -1.5, osteopenia. AP SPINE L1-L4: BMD 0.879 g/cm2, Z-score -1.6, T-score -2.5, osteoporosis. IDENTIFIED RISK FACTORS: Menopause, secondary osteoporosis (type 1 diabetes). HISTORY OF FRACTURE: None listed. MEDICATIONS: None listed. MM/XR DEXA axial skeleton IMPRESSION: 1. DIAGNOSIS: Osteoporosis based on the lowest T-score value of -2.5 in the lumbar spine applying World Health Organization criteria. Labs: Did not complete secondary workup Secondary workup was negative [facility] Medical History Diabetes 1.5, managed as type 2 Hypertension Diabetic coma Cataracts, bilateral Surgical History History of cataract surgery Family History Other No pertinent family history Social History Housing: House Alcohol intake: never Patient Tobacco Use Status: Never used Tobacco e-Cigarette/Vaping Use: Never Used Second Hand Smoke Exposure: No service: No Current occupational status: retired Current occupational exposures/hazards: No Cognitive needs: No Hearing needs: No Vision needs: No Female Reproductive History Menstrual Age of Menarche: 15 Physical Exam Vital Signs: Last Vital Signs Pulse 84 07/22/25 09:45 BP 134/72 07/22/25 09:45 Pulse Ox 97 07/22/25 09:45 Oxygen Delivery Method Room Air 07/22/25 09:45 BMI result Body Mass Index 25.9 Assessment & Plan Assessment & Plan (1) Osteoporosis: Code(s): M81.0 - Age-related osteoporosis without current pathological fracture Category: Medical Plan: This is a 65-year-old female with a history of osteoporosis borderline. Partial secondary workup has been negative. Secondary workup is negative Will ensure 1200 mg of calcium per day in diet and supplementation (recommended Viactiv sugar free 500 mg twice a day) and continue vitamin-D supplementation. Assuming secondary workup was negative could consider use of anti resorptive therapy like oral or intravenous bisphosphonate . We will push lifestyle changes like weight-bearing exercise. We will obtain repeat DEXA bone density and if decline in bone density could consider initiation of oral bisphosphonate at that point versus non pharmacologic treatment with lifestyle changes and calcium and vitamin-D Orders: Orders XR DEXA axial skeleton 3 Months M81.0 - Age-related osteoporosis without current pathological fracture Coding Level of Care Code Est Pt Level 3 (22950) Diagnoses Osteoporosis M81.0
[2025-07-22 09:45] VITALS: BP 134/72; PULSE 84; O2SAT 97; BMI 25.9
== END 2025-07-22 10:07 | disposition home or self-care (01) ==
LOC: HO.ENCR 09:36
PROVIDERS: PCP Nurse Practitioner Family; Visit Provider Internal Medicine Endocrinology, Diabetes & Metabolism
DX: M81.0 Age-related osteoporosis without current pathological fracture (principal)
CPT/HCPCS: 99213

== ENCOUNTER → 2025-07-22 09:35 | Outpatient (BNVA) | payer MEDICAID, SELFPAY | PROVIDERS: PCP Nurse Practitioner Family; Visit Provider Internal Medicine Endocrinology, Diabetes & Metabolism | DX: M81.0 Age-related osteoporosis without current pathological fracture (principal) | CPT/HCPCS: 99212 ==

== ENCOUNTER 2025-09-15 11:03 | Outpatient (AMB) | payer MEDICAID, SELFPAY ==
--- NOTE | 2025-09-15 11:08 | MHC.PC.OV ---
Vital Signs 09/15/25 11:11 Height 5 ft 3 in Weight 148 lb 4 oz BMI 26.3 BP 125/70 Blood Pressure Location Lt brachial Position Sitting Respiration 16 Pulse 75 Pulse Source Pulse Oximeter Temp 97.8 F Temp Source Oral Pulse Oximetry (%) 97 Oxygen Delivery Method Room Air Intake Visit Reasons: 3 mos HTN, DM Intake Note: patient here for 3 month follow up on HTN and DM Overcoil Stepper Required: Yes Overcoil Stepper Name: pt refused w/son Information Interpreted: non-clinical & clinical Accompanied by: Son Is last menstrual period known: No Post menopausal: No Patient : No Allergies No Known Allergies Allergy (Verified 09/15/25 11:19) Medication List - Last Reconciled 09/15/25 by Kelsie Acuna CNP amlodipine 10 mg PO DAILY 90 days amoxicillin 1,000 mg (2 x 500 mg) PO BID 10 days atorvastatin 20 mg PO BEDTIME blood sugar diagnostic (FreeStyle Test strips) POC 3 times daily blood-glucose meter (FreeStyle [place] Lite kit) As directed cholecalciferol (vitamin D3) 75 mcg PO DAILY 90 days clarithromycin 500 mg PO BID 10 days hydrochlorothiazide 25 mg PO QAM 90 days lancets (FreeStyle Lancets) As directed lisinopril 40 mg PO DAILY 90 days metformin ER 750 mg PO BID 90 days nut.tx.gluc.intol,lac-free,soy (Glucerna Therapeutic Nutrition oral liquid) 1-2 drinks daily 30 days omeprazole 20 mg PO BID 10 days pen needle, diabetic (BD Ultra-Fine Micro Pen Needle) POC testing three times daily Tobacco use date assessed: 09/15/25 Fall risk assessment: No Falls in past year Last assessed Fall Risk: 09/15/25 Dental Screening Dental Screen Date: 09/15/25 Did you have a dental visit in the last 12 months?: Yes Did you have a dental problem in the last 6 months where you did not have access to dental care?: No Was dental information given to patient?: Patient has dentist HPI HPI Comments History of Present Illness Details 65-year-old Creole speaking female, accompanied by her son, presents for hypertension and diabetes follow up. She admits to taking her medications as prescribed without adverse reactions. She notes that she has been making healthy dietary choices and walking routinely. No acute symptoms at this time. Interpretation by the patient's son per patient's preference. [facility] Medical History Diabetes 1.5, managed as type 2 Hypertension Diabetic coma Cataracts, bilateral Surgical History History of cataract surgery Family History Other No pertinent family history Social History Housing: House Alcohol intake: never Patient Tobacco Use Status: Never used Tobacco e-Cigarette/Vaping Use: Never Used Second Hand Smoke Exposure: No service: No Current occupational status: retired Current occupational exposures/hazards: No Cognitive needs: No Hearing needs: No Vision needs: No Female Reproductive History Menstrual Age of Menarche: 15 Questionnaire Thrive Questionnaire Date Thrive assessed: 12/01/24 I am a: Patient What is your living situation today?: I choose not to answer this question Within the past 12 months, did the food you bought not last and you didn't have the money to get more?: I choose not to answer this question Within the past 12 months, did you worry whether your food would run out before you got money to buy more?: I choose not to answer this question Do you have trouble paying for medicines?: I choose not to answer this question Do you have trouble getting transportation to medical appointments?: I choose not to answer this question Do you have trouble paying your heating and electricity bill?: I choose not to answer this question Do you have trouble taking care of your child, family member or friend?: I choose not to answer this question Do you have trouble with day-to-day activities such as bathing, preparing meals, shopping, managing finances, etc.?: I choose not to answer this question Are you currently unemployed and looking for a job?: I choose not to answer this question Are you interested in more education?: I choose not to answer this question Please select the resources that you would like help with: None Currently or been in a relationship where the following occur: I choose not to answer THRIVE Score: 0 JASWINDER-7 AMB Questionnaire JASWINDER-7 Date JASWINDER - 7 assessed: 12/31/24 Source: Developed by Frida Berry. Delvis, Rajan Tolliver and colleagues, with an educational cassandra from [employer]. Review of Systems Const Details: Const Denies chills, Denies fatigue, Denies fever(s), Denies headache(s) and Denies weakness ENT Denies dizziness and Denies headache(s) Card Denies chest pain, Denies lightheadedness, Denies dyspnea and Denies other (Palpitations) Resp Denies cough, Denies dyspnea, Denies wheezing and Denies other ( shortness of breath) GI Denies abdominal pain, Denies melena, Denies hematochezia, Denies change in bowel habits, Denies dyspepsia and Denies nausea Denies hematuria and Denies dysuria Musc Denies abnormal gait, Denies myalgias, Denies arthralgias, Denies numbness and Denies tingling Skin/Breast Denies rash, Denies unusual bruising and Denies wounds Neuro Denies abnormal gait, Denies dizziness, Denies headache(s), Denies memory loss, Denies numbness, Denies Sensory deficit (Neuro), Denies tingling and Denies weakness Psych Denies anxiety, Denies depression, Denies memory loss Endo Denies cold intolerance, Denies fatigue, Denies heat intolerance, Denies polydipsia and Denies polyuria Aller/Immun Denies wheezing Physical exam (Primary Care) Tobacco/Smoking Status: Tobacco use Status Tobacco use date assessed 06/09/25 09/15/25 11:09 Patient Tobacco Use Status Never used Tobacco 09/15/25 11:09 e-Cigarette/Vaping Use Never Used 09/15/25 11:09 Thrive Assessment: Date of Thrive Assessment Date Thrive assessed 12/01/24 09/15/25 11:09 Currently or been in a relationship where the following occur: I choose not to answer Const Other: General: no acute distress and well developed Nutritional Appearance: well nourished Orientation/consciousness: patient oriented x3 HENMT Head: Yes normocephalic and Yes atraumatic Eyes General: appearance normal, both eyes and all related structures Pupils: Equal, round and reactive pupils present EOM: EOMs intact bilaterally Resp Effort & Inspection: normal respiratory effort Auscultation: clear to auscultation bilaterally Cardio Rate: regular rate Rhythm: regular rhythm Heart sounds: S1 normal heart sound present, S2 normal heart sound present, no gallops, no murmurs and no rubs Extrem General: Yes normal to inspection, No edema and No calf tenderness Skin General: warm and dry. Normal skin color. Normal skin turgor Neuro General: patient oriented x3, gait normal and no focal neuro deficit Cranial nerves: Yes Equal, round and reactive pupils present Cognition (Neuro): normal cognition Gait exam (Neuro): Normal gait present Sensory Exam: No Sensory deficit (Neuro) Psych Appearance: grossly normal Affect: normal affect Attitude: cooperative Thought process: Normal thought process present Results AMB Hemoglobin A1c AMB Hemoglobin A1c 5.7 % Last Edit by MAYUR Bhat on 09/15/25 11:23 Coding Level of Care Code Est Pt Level 3 (88036) Diagnoses Primary hypertension I10 Hypertension type: primary hypertension Type 2 diabetes mellitus without complication, without long-term current use of insulin E11.9 Diabetes mellitus complication status: without complication Diabetes mellitus halfway insulin use: without termite technician use Assessment & Plan Assessment & Plan (1) Hypertension: Code(s): I10 - Essential (primary) hypertension Category: Medical Qualifiers: Hypertension type: primary hypertension Qualified Code(s): I10 - Essential (primary) hypertension Plan: Blood pressure is 125/70, within goal of less than 130/80. Continue current treatment regimen. Low-sodium diet encouraged. Follow-up in 1 month with a new PCP within the practice for transfer of care and an extended physical exam. Return sooner with symptoms or concerns. Verbalized understanding and agreed with the plan. (2) Type 2 diabetes mellitus: Code(s): E11.9 - Type 2 diabetes mellitus without complications Category: Medical Qualifiers: Diabetes mellitus complication status: without complication Diabetes mellitus termite technician insulin use: without halfway use Qualified Code(s): E11.9 - Type 2 diabetes mellitus without complications Plan: A1c today is 5.7%, within goal of less than 7.0%. Previous A1c was 5.4%. Continue current treatment regimen. ADA diet and routine exercise encouraged. For recheck A1c in 3 months. Verbalized understanding and agreed with the plan. Orders: Orders AMB Hemoglobin A1c Today Z13.9 - Encounter for screening, unspecified
[2025-09-15 11:11] VITALS: BP 125/70; PULSE 75; RESP 16; TEMP 36.6; O2SAT 97; BMI 26.3
== END 2025-09-15 11:34 | disposition home or self-care (01) ==
LOC: HO.HMCFM 11:03
PROVIDERS: PCP Nurse Practitioner Family; Visit Provider Nurse Practitioner Family
DX: I10 Essential (primary) hypertension (principal); E11.9 Type 2 diabetes mellitus without complications; Z13.9 Encounter for screening, unspecified

== ENCOUNTER → 2025-09-15 11:03 | Outpatient (BNVA) | payer MEDICAID, SELFPAY | PROVIDERS: PCP Nurse Practitioner Family; Visit Provider Nurse Practitioner Family | DX: E11.9 Type 2 diabetes mellitus without complications (principal); I10 Essential (primary) hypertension | CPT/HCPCS: 83036; 99212 ==